=== PATIENT | female | born 1950 | race Caucasian/White ===

== ENCOUNTER 2018-02-06 13:19 | Emergency (ER) | payer MEDICARE, MEDICAID, SELFPAY ==
[2018-02-06 13:39] VITALS: BP 126/71; PULSE 75; RESP 16; TEMP 37.3; O2SAT 95; BMI 25.6
--- NOTE | 2018-02-06 15:42 | NURSING ---
ASHLI STROUD, EYE DR
--- NOTE | 2018-02-06 16:15 | ED.VISSUMM ---
- ER Visit Summary Date of Service: 02/06/18 Chief Complaint: Left eye lateral visual field cut. History of Present Illness: The patient is a 67 F prior I history. Denies any prior eye surgery. She has never had a stroke. Approximately 3 years ago she had a full workup including CTA and MRI which is basically unremarkable. She states today she had left lateral visual field change for the last several hours. She also states she has nasal congestion. She denies any eye pain. She denies any problems moving her arms or legs. She denies any numbness. Denies any headache or head trauma. She is on no blood thinners. Other than aspirin. Physical Examination: Well-appearing older female. Vital signs are stable afebrile. Her visual acuity is 20/30 bilaterally. 20/30 right eye. 20/40 left eye. She does not wear glasses or contacts. HEENT exam unremarkable. Pupils round reactive light. Extra motions are intact. No palsies. No facial droop. Normal speech. Very limited funduscopic exam due to non-dilated left pupil. Lungs clear to auscultation. Heart regular rate and rhythm no murmur. Abdomen soft nontender. She is moving all 4 extremities. They are neurovascularly intact. She has 5 out of 5 house shorer strength bilaterally. Dorsi plantar flexion intact bilaterally. Normal sensation. Normal range of motion. No deformity. NIH score is 0. On confrontation she does have a left lateral field cut. Test Results: None Emergency Department Course and Treatment: Clinically and historically this is not a stroke. This may or may not be secondary to the retina. She needs a more thorough funduscopic exam and ophthalmology evaluation. I spoke to Dr. Cohn concrete building assembler for ophthalmology will meet the patient at her office for further evaluation. Discussed this with the patient and she is comfortable with the plan will go directly to the office. Treatment Plan: [] Disposition: Discharged to go to the buffing wheel inspector office. Impression: Acute left eye visual field cut of uncertain etiology This note was generated with [employer] dictation software. It may contain incorrect words, spelling, and punctuation that were not noted in review of the chart prior to signing ED Disposition - Plan for ED Patient: Disposition: Home or Assisted Living Chief Complaint: Vision Prob Referrals: Louisa Cohn MD [STAFF PHYSICIAN] - As soon as possible Additional Instructions: Please to Dr. Cohn's office to be seen right now. She will come in me to the office.
--- NOTE | 2018-02-06 16:21 | ED.DCSUM_ITS ---
- ER Visit Summary Date of Service: 02/06/18 Chief Complaint: Left eye lateral visual field cut. History of Present Illness: The patient is a 67 F prior I history. Denies any prior eye surgery. She has never had a stroke. Approximately 3 years ago she had a full workup including CTA and MRI which is basically unremarkable. She states today she had left lateral visual field change for the last several hours. She also states she has nasal congestion. She denies any eye pain. She denies any problems moving her arms or legs. She denies any numbness. Denies any headache or head trauma. She is on no blood thinners. Other than aspirin. Physical Examination: Well-appearing older female. Vital signs are stable afebrile. Her visual acuity is 20/30 bilaterally. 20/30 right eye. 20/40 left eye. She does not wear glasses or contacts. HEENT exam unremarkable. Pupils round reactive light. Extra motions are intact. No palsies. No facial droop. Normal speech. Very limited funduscopic exam due to non-dilated left pupil. Lungs clear to auscultation. Heart regular rate and rhythm no murmur. Abdomen soft nontender. She is moving all 4 extremities. They are neurovascularly intact. She has 5 out of 5 shopping centre manager strength bilaterally. Dorsi plantar flexion intact bilaterally. Normal sensation. Normal range of motion. No deformity. NIH score is 0. On confrontation she does have a left lateral field cut. Test Results: None Emergency Department Course and Treatment: Clinically and historically this is not a stroke. This may or may not be secondary to the retina. She needs a more thorough funduscopic exam and ophthalmology evaluation. I spoke to Dr. Cohn machine operations supervisor for ophthalmology will meet the patient at her office for further evaluation. Discussed this with the patient and she is comfortable with the plan will go directly to the office. Treatment Plan: [] Disposition: Discharged to go to the rotary engraver office. Impression: Acute left eye visual field cut of uncertain etiology This note was generated with [employer] dictation software. It may contain incorrect words, spelling, and punctuation that were not noted in review of the chart prior to signing ED Disposition - Plan for ED Patient: Disposition: Home or Assisted Living Chief Complaint: Vision Prob Referrals: Louisa Cohn MD [STAFF PHYSICIAN] - As soon as possible Additional Instructions: Please to Dr. Cohn's office to be seen right now. She will come in me to the office.
[2018-02-06 16:30] VITALS: BP 189/83; PULSE 55; RESP 16
== END 2018-02-06 16:31 | disposition home or self-care (01) ==
PROVIDERS: Emergency Provider Emergency Medicine; Family Provider Internal Medicine; PCP Internal Medicine
DX: H53.8 Other visual disturbances (principal); Z72.0 Tobacco use; Z79.82 Long term (current) use of aspirin
CPT/HCPCS: 99284

== ENCOUNTER → 2018-02-11 12:39 | Outpatient (CLI) | payer MEDICARE, MEDICAID, SELFPAY ==
[2018-02-11 13:49] LABS: Anion Gap 4 (5-15); BUN 19 mg/dL (7-18); Calcium,Total 8.7 mg/dL (8.5-10.1); Chloride 105 mmol/L (98-107); EST Glomerular Filtration Rate 66 mL/min (>60); Est Glom Filt Rate - Afr Amer 80 mL/min (>60); Glucose 170 mg/dL (74-106); Potassium 3.6 mmol/L (3.5-5.1); Sodium Level 139 mmol/L (136-145); T4 Free Direct 0.99 ng/dL (0.76-1.46)
== END ==
PROVIDERS: Family Provider Internal Medicine; PCP Internal Medicine; Visit Provider Internal Medicine
DX: I10 Essential (primary) hypertension (principal)
CPT/HCPCS: 36415; 80048; 84439; 84443

== ENCOUNTER → 2018-02-13 12:39 | Outpatient (CLI) | payer MEDICARE, MEDICAID, SELFPAY ==
[2018-02-13 14:26] LABS: Hemoglobin A1c 5.6 % (4.2-6.3)
== END ==
PROVIDERS: Family Provider Internal Medicine; PCP Internal Medicine; Visit Provider Internal Medicine
DX: R73.9 Hyperglycemia, unspecified (principal)
CPT/HCPCS: 36415; 83036

== ENCOUNTER → 2018-07-23 08:12 | Outpatient (CLI) | payer MEDICARE, MEDICAID, SELFPAY ==
[2018-07-23 09:32] LABS: AST(SGOT) 15 U/L (15-37); Alanine Aminotransfer ALT/SGPT 20 U/L (13-56); Albumin, Serum 3.5 g/dL (3.2-5.0); Alkaline Phosphatase 77 U/L (45-117); Anion Gap 7 (5-15); BUN 19 mg/dL (7-18); BUN/Creat Ratio 23.6 RATIO (10-20); Calcium,Total 8.8 mg/dL (8.5-10.1); Chloride 107 mmol/L (98-107); Cholesterol 244 mg/dL (200); EST Glomerular Filtration Rate 76 mL/min (>60); Est Glom Filt Rate - Afr Amer 91 mL/min (>60); Globulin 3.5 g/dL (2.2-4.2); Glucose 91 mg/dL (74-106); High Density Lipoprotein 61 mg/dL; Potassium 4.2 mmol/L (3.5-5.1); Sodium Level 144 mmol/L (136-145); Triglycerides 135 mg/dL; Very Low Density Lipoprotein 27 mg/dL (5-40)
== END ==
PROVIDERS: Family Provider Internal Medicine; PCP Internal Medicine; Referring Provider Internal Medicine; Visit Provider Internal Medicine
DX: I10 Essential (primary) hypertension (principal)
CPT/HCPCS: 36415; 80053; 80061

== ENCOUNTER → 2018-07-25 13:02 | Outpatient (CLI) | payer MEDICARE, MEDICAID, SELFPAY ==
--- NOTE | 2018-07-25 13:05 | BD_ITS ---
STUDY: DUAL ENERGY X-RAY ABSORPTIOMETRY / DXA REASON FOR EXAM: Female, 68 years old. Postmenopausal screening TECHNIQUE: Bone Mineral Density (BMD) measurements of lumbar spine and bilateral hips were obtained. COMPARISON: 2002 FINDINGS: Lumbar Spine (L1-L4): g/cm2 (1.448) / T-score (2.4) / Z-score (4.0) Findings are suggestive of normal bone density with a low fracture risk. Left Femur Total: g/cm2 (1.058) / T-score (0.4) / Z-score (1.7) Left Femoral Neck: g/cm2 (1.031) / T-score (-0.1) / Z-score (1.5) Right Femur Total: g/cm2 (1.056) / T-score (0.4) / Z-score (1.7) Right Femoral Neck: g/cm2 (1.085) / T-score (0.3) / Z-score (1.9) The T-Scores on the most recent prior examination were: Lumbar Spine (L1-L4): There has been worsening of bone density since the previous examination. BD/Dexa Bone Density Study IMPRESSION: The patient is considered normal as outlined below according to World Shawn Organization (WHO) criteria with a low fracture risk. There has been worsening of bone density since the previous examination. Reference Information: The T-score is the number of standard deviations above or below the standard which is normal for young adults at their peak bone mineral density. The World Health Organization (WHO) interprets the T-scores as follows: Above -1 Normal bone density Between -1 and -2.5 Osteopenia Equal to / or below -2.5 Osteoporosis As a practical clinical guideline, osteopenia may be graded as follows: Mild -1 through -1.5 Moderate -1.6 through -2.0 Severe -2.1 through -2.4 The Z-score is the number of standard deviations above or below age-matched controls. A Z-score of less than -1.5 would be considered abnormal. References: 1. NIH Osteoporosis and Related Bone Diseases http://www.osteo.org 2. International Society for Clinical Densitometry http://www.iscd.org 3. National Osteoporosis Foundation http://www.nof.org Electronically Signed: Zion Rodrigues MD at 10:23 EDT , Service support ,
== END ==
PROVIDERS: Family Provider Internal Medicine; PCP Internal Medicine; Visit Provider Internal Medicine
DX: Z78.0 Asymptomatic menopausal state (principal)
CPT/HCPCS: 77080

== ENCOUNTER → 2018-07-26 13:27 | Outpatient (CLI) | payer MEDICARE, MEDICAID, SELFPAY ==
--- NOTE | 2018-07-26 13:29 | CT_ITS ---
STUDY: LOW DOSE CT LUNG CANCER SCREENING REASON FOR EXAM: Female, 68 years old. RADIATION DOSAGE (If Supplied By Facility): CTDIvol = ( 1.70 ) mGy, DLP = ( 58.07 ) mGycm TECHNIQUE: No contrast was administered. Low dose technique was utilized (average mAS-38 and kVp 120). 1.25 mm axial source images with a slice interval of 1.25-mm were reconstructed in lung windows. 2.5 mm axial source images with a slice interval of 2.5-mm were reconstructed in lung windows. 5.0 mm axial source images with a slice interval of 5.0-mm were reconstructed in soft tissue windows. Nodule measured using lung windows on PACS and/or independent workstation with automated measurement of minimum and maximum diameter. Nodule measurement reported as average diameter rounded to the nearest whole number. Growth is defined as an increase ins size of greater than 1.5 mm. COMPARISON: None. NODULES: Lung windows show no suspicious noncalcified mass or nodule. No organized infiltrate. Soft tissue windows show normal-appearing thyroid gland. No suspicious axillary or mediastinal adenopathy. No pleural or pericardial effusions. Other chest and abdominal findings: Mild degenerative bony changes CT/Low Dose CT Lung Screening IMPRESSION: Lung-RADS category 1 - Continue annual screening with LDCT in 12 months. IMPORTANT NOTES FOR USE: ACR Lung-RADS Version 1.0 Assessment Categories Release Date: February 16, 2014 Category: Coded 0-4 bases on nodule(s) with highest degree of suspicion. Negative screen is defined as categories 1 and 2; a positive screen is defined as categories 3 and 4. Category 3 and 4A nodules that are unchanged on interval CT should be coded as category 2, and individuals returned to screening in 12 months. Category 4X: Category 3 or 4 nodules with additional imaging findings that increase the suspicion of lung cancer, such as spiculation, GGN that doubles in size in 1 year, enlarged lymph notes, etc. Category Modifiers: S (significant finding unrelated to lung cancer) and C (prior history of treated lung cancer) may be added to the 0-4 Lung-RADS Electronically Signed: Zion Rodrigues MD at 16:26 EDT , Service support ,
== END ==
PROVIDERS: Family Provider Internal Medicine; PCP Internal Medicine; Referring Provider Internal Medicine; Visit Provider Internal Medicine
DX: Z87.891 Personal history of nicotine dependence (principal)
CPT/HCPCS: G0297

== ENCOUNTER → 2018-08-16 11:54 | Outpatient (CLI) | payer MEDICARE, MEDICAID, SELFPAY ==
--- NOTE | 2018-08-16 11:56 | BI_ITS ---
MAMMOGRAPHY - BILATERAL SCREENING REASON FOR EXAM: Female, 68 years old. Routine annual screening examination. PERTINENT HISTORY: Non-contributory. TECHNIQUE: Digital bilateral breast gail (3D mammographic acquisition) in the CC and MLO projections. 2-D mediolateral oblique (MLO) and craniocaudad (CC) views of both breasts were obtained. CAD: Full Field Digital Mammography with Computer Added Detection was performed. COMPARISON: Comparison is made with prior study dated May 15, 2017 and November 14, 2012. FINDINGS: Breast Composition: The breasts are heterogeneously dense, which may obscure small masses. There are no dominant masses or suspicious calcifications. A stereotactic tissue clip marker is once again seen in the superior lateral anterior aspect of the left breast. No other significant abnormalities are identified. There has been no significant change since the prior study. BI/SCREENING MAMM (CAD), BILAT IMPRESSION: Stable bilateral screening mammogram. Yearly follow-up mammogram recommended. (A) ASSESSMENT CATEGORY: BIRADS Category 2: Benign. A letter regarding these results will be sent to the patient by the facility within 30 days. Approximately 10% of breast cancers are not detected by mammography. A normal mammogram should not delay biopsy of a clinically suspicious abnormality. [id number] Electronically Signed: Jorge Pollard MD at 12:52 EDT Tel [phone], Service support ,
== END ==
PROVIDERS: Family Provider Internal Medicine; PCP Internal Medicine; Referring Provider Internal Medicine; Visit Provider Internal Medicine
DX: Z12.31 Encounter for screening mammogram for malignant neoplasm of breast (principal)
CPT/HCPCS: 77063; 77067

== ENCOUNTER → 2018-12-18 12:25 | Outpatient (CLI) | payer MEDICARE, MEDICAID, SELFPAY ==
[2018-12-18 09:15] VITALS: BMI 24.6
--- NOTE | 2018-12-18 12:44 | RAD_ITS ---
STUDY: X-RAY - BILATERAL RIBS WITH CHEST REASON FOR EXAM: Female, 68 years old. Anterior and posterior rib pain since bronchitis summer 2017. TECHNIQUE - RIBS: 6 view(s) of the ribs. TECHNIQUE - CHEST: Single frontal view of the chest. COMPARISON: None. FINDINGS - RIBS : Normal visualized ribs without a demonstrated fracture. FINDINGS - CHEST: The lungs are clear and expanded. There is no demonstrated pleural abnormality. Normal size heart. Normal mediastinum and angelo. Normal visualized pulmonary arteries. There is minimal atherosclerotic calcification of the aortic arch. There are diffuse degenerative changes of the visualized spine. There is a 26 degree dextroscoliosis centered at T11 and a 27.75 degree levorotoscoliosis of the lumbar spine centered near L2. Subarticular cystic degenerative changes noted in the glenoid of the left scapula. There is no demonstrated abnormality of the visualized soft tissue structures of the upper abdomen. RAD/Ribs Grant Min 4V w/PA Chest IMPRESSION: RIBS: Normal x-ray examination of the bilateral ribs. CHEST: 1. No acute cardiopulmonary disease. 2. Levorotoscoliosis of the lumbar spine with compensatory lower thoracic dextroscoliosis, as noted. Electronically Signed: Zion Richardson, at 19:59 EST , Service support ,
== END ==
PROVIDERS: Family Provider Internal Medicine; PCP Internal Medicine; Referring Provider Nurse Practitioner Family; Visit Provider Nurse Practitioner Family
DX: R07.81 Pleurodynia (principal)
CPT/HCPCS: 71111

== ENCOUNTER → 2019-01-21 09:41 | Outpatient (CLI) | payer MEDICARE, MEDICAID, SELFPAY ==
[2019-01-15 13:42] VITALS: BMI 24.6
[2019-01-21 11:28] LABS: Thyroid Stim Hormone (TSH) 1.45 uIU/mL (0.358-3.74)
== END ==
PROVIDERS: Family Provider Internal Medicine; PCP Internal Medicine; Referring Provider Internal Medicine; Visit Provider Internal Medicine
DX: I10 Essential (primary) hypertension (principal)
CPT/HCPCS: 36415; 84443

== ENCOUNTER → 2019-03-03 08:11 | Outpatient (CLI) | payer MEDICARE, MEDICAID, SELFPAY ==
[2019-02-17 14:34] VITALS: BMI 24.6
--- NOTE | 2019-03-03 08:13 | CT_ITS ---
STUDY: CT MAXILLOFACIAL SINUSES REASON FOR EXAM: Female, 69 years old. History of congestion. RADIATION DOSAGE (If Supplied By Facility): CTDIvol = ( 33.06 ) mGy, DLP = ( 722.28 ) mGycm TECHNIQUE: The patient was scanned in a multi detector CT scanner. High resolution axial imaging was performed without the administration of intravenous contrast material. Sagittal and coronal images were reconstructed. Individualized dose optimization techniques were used for this CT. COMPARISON: None. FINDINGS: FRONTAL SINUSES: Normal aeration, without mucosal inflammatory disease. ETHMOIDAL SINUSES: Normal aeration, without mucosal inflammatory disease. MAXILLARY SINUSES: Normal aeration, without mucosal inflammatory disease. SPHENOIDAL SINUSES: Normal aeration, without mucosal inflammatory disease. There is patency of the bilateral maxillary infundibuli with normal uncinate processes, ethmoid bullae, and hiatus semilunaris. Normal bilateral middle turbinates. Normal bilateral inferior turbinates. Normal midline nasal septum. There is patency of the bilateral nasal airways. The visualized osseous structures are normal. The visualized bilateral orbital contents are normal. Cavity seen in the left incisor tooth. CT/Sinus/Facial Bone IMPRESSION: Normal CT examination of the maxillofacial sinuses. Electronically Signed: Jorge Pollard, at 15:14 EDT , Service support ,
== END ==
PROVIDERS: Family Provider Internal Medicine; PCP Internal Medicine; Referring Provider Internal Medicine; Visit Provider Internal Medicine
DX: J32.9 Chronic sinusitis, unspecified (principal)
CPT/HCPCS: 70486

== ENCOUNTER → 2019-04-10 | Outpatient (CLI) | payer MEDICARE, MEDICAID, SELFPAY ==
[2019-02-17 14:34] VITALS: BMI 24.6
--- NOTE | 2019-04-10 15:45 | MRI_ITS ---
STUDY: MRI LUMBAR SPINE WITHOUT CONTRAST REASON FOR EXAM: Female, 69 years old. Lower back pain TECHNIQUE: Standardized fat and water weighted pulse sequences were obtained in the sagittal and axial planes. COMPARISON: None FINDINGS: T12-L1: Normal endplates. Normal disc height, hydration and morphology. Normal bilateral facet joints. Normal central canal and bilateral lateral recesses. Normal bilateral intervertebral neural foramina. Normal lumbar lordosis. There is no substantial scoliosis. Normal conus medullaris that terminates at the L1 level. L1-2: Endplate spondylosis. Decreased disc height and small circumferential disc bulge. 5 mm retrolisthesis. Degenerative changes of the bilateral facet joints. Mild narrowing of the central canal and bilateral intervertebral neural foramina. L2-3: Endplate spondylosis. Decreased disc height and small circumferential disc bulge. 5 mm retrolisthesis. Degenerative changes of the bilateral facet joints. Mild narrowing of the central canal. Mild left and severe right intervertebral neural foraminal narrowing. L3-4: Endplate spondylosis. Decreased disc height and small circumferential disc bulge. Degenerative changes of the bilateral facet joints. Mild narrowing of the central canal and bilateral intervertebral neural foramina. L4-5: Endplate spondylosis. Decreased disc height and small circumferential disc bulge. Degenerative changes of the bilateral facet joints. 6 mm synovial cyst on the right side. Moderate narrowing of the central canal moderate right and severe left intervertebral neural foraminal narrowing. L5-S1: Endplate spondylosis. Decreased disc height and small circumferential disc bulge. Degenerative changes of the bilateral facet joints. Mild narrowing of the central canal. Moderate right and severe left intervertebral neural foraminal narrowing. Normal visualized sacral ala. Normal visualized paraspinous soft tissue structures. MRI/Spine Lumbar (Routine) IMPRESSION: Multilevel degenerative changes, as described above. Electronically Signed: Joanne Aparicio, at 8:02 EDT Tel , Service support ,
== END | disposition home or self-care (01) ==
LOC: MRI 15:39
PROVIDERS: Family Provider Internal Medicine; PCP Internal Medicine; Referring Provider Specialist; Visit Provider Specialist
DX: M54.5 Low back pain (principal)
CPT/HCPCS: 72148

== ENCOUNTER → 2019-07-15 13:07 | Outpatient (CLI) | payer MEDICARE, MEDICAID, SELFPAY ==
[2019-07-15 13:04] VITALS: BMI 24.6
--- NOTE | 2019-07-15 13:09 | RAD_ITS ---
STUDY: X-RAY - LUMBAR SPINE REASON FOR EXAM: Female, 69 years old. Severe low back pain. TECHNIQUE: 4 view(s) of the lumbar spine were obtained with flexion and extension. COMPARISON: None FINDINGS: Normal lumbar lordosis. There is a levoscoliosis of the lumbar spine. There is a normal alignment of the vertebrae. Very limited range of motion. There is diffuse demineralization with multi-level endplate spondylosis. There is multi-level degenerative disc disease with multi-level disc space narrowing. There is no demonstrated fracture. The soft tissue structures are unremarkable. RAD/L/S Spine Min 4 Views IMPRESSION: Degenerative changes of the spine, as detailed above. Minimal flexion and extension with no gross subluxations. Electronically Signed: Calixto Goncalves MD at 17:08 EDT , Service support ,
== END ==
PROVIDERS: Family Provider Internal Medicine; PCP Internal Medicine; Referring Provider Orthopaedic Surgery; Visit Provider Orthopaedic Surgery
DX: M54.5 Low back pain (principal)
CPT/HCPCS: 72110

== ENCOUNTER → 2019-08-19 15:31 | Outpatient (CLI) | payer MEDICARE, MEDICAID, SELFPAY ==
[2019-07-15 13:04] VITALS: BMI 24.6
[2019-08-18 13:08] VITALS: BMI 27.7
--- NOTE | 2019-08-19 15:32 | BI_ITS ---
MAMMOGRAPHY - BILATERAL SCREENING REASON FOR EXAM: Female, 69 years old. Routine annual screening examination. PERTINENT HISTORY: Non-contributory. Occasional left breast pain. Remote left stereotactic breast biopsy. TECHNIQUE: Digital bilateral breast claudio (3D mammographic acquisition) in the CC and MLO projections. 2-D mediolateral oblique (MLO) and craniocaudad (CC) views of both breasts were obtained. CAD: Full Field Digital Mammography with Computer Added Detection was performed. COMPARISON: Comparison is made with prior examination dated August 16, 2018 and May 15, 2017. FINDINGS: Breast Composition: The breasts are heterogeneously dense, which may obscure small masses. There are no dominant masses or suspicious calcifications. No other significant abnormalities are identified. There has been no significant change since the prior study. BI/SCREEN MAMM (CAD) W/CLAUDIO BILAT IMPRESSION: Stable bilateral screening mammogram. Yearly follow-up mammogram recommended. (A) ASSESSMENT CATEGORY: BIRADS Category 1: Negative. A letter regarding these results will be sent to the patient by the facility within 30 days. Approximately 10% of breast cancers are not detected by mammography. A normal mammogram should not delay biopsy of a clinically suspicious abnormality. [id number] Electronically Signed: Jorge Pollard, at 8:36 EDT , Service support ,
== END ==
PROVIDERS: Family Provider Internal Medicine; PCP Internal Medicine; Referring Provider Internal Medicine; Visit Provider Internal Medicine
DX: Z12.31 Encounter for screening mammogram for malignant neoplasm of breast (principal)
CPT/HCPCS: 77063; 77067

== ENCOUNTER → 2019-08-20 08:02 | Outpatient (CLI) | payer MEDICARE, MEDICAID, SELFPAY ==
[2019-08-18 13:08] VITALS: BMI 27.7
[2019-08-20 08:08] LABS: Bacteria 0 SEEN /hpf (None Seen); Mucous, Urine 0 SEEN /hpf (<or=2+)
[2019-08-20 08:26] LABS: Absolute Lymphocyte Count 2.21 X10^3/uL (0.83-4.51); Absolute Neutrophil Count 3.1 X10^3/uL (2.0-7.7); Basophil# 0.03 X10^3/uL; Basophil% 0.5 % (0-1); Eosinophil# 0.16 X10^3/uL; Eosinophils% 2.6 % (0-5); Hematocrit 47.9 % (37-47); Hemoglobin 15.2 g/dL (12.0-15.0); Lymphocyte # 2.21 X10^3/ul (4.0); Lymphocyte % 36.3 % (19-41); Mean Corp Hgb Conc 31.7 g/dL (32-36); Mean Corpuscular Volume 94.5 fL (81-99); Mean Platelet Vol. 11.2 fl (6.2-12.0); Monocyte# 0.52 X10^3/uL; Monocyte% 8.6 % (0-10); NRBC Flagged by Analyzer 0 % (0-5); Neutrophil # 3.14 X10^3/uL (2.7-7.7); Neutrophil % 51.7 % (47-70); Platelet Count 213 K/mm3 (150-450); RBC Distribution Width CV 12.7 % (11.6-14.6); Red Blood Count 5.07 M/mm3 (4.2-5.4); White Blood Count 6.1 K/mm3 (4.4-11.0)
[2019-08-20 09:01] LABS: AST(SGOT) 16 U/L (15-37); Alanine Aminotransfer ALT/SGPT 18 U/L (13-56); Albumin, Serum 3.7 g/dL (3.2-5.0); Alkaline Phosphatase 89 U/L (45-117); Anion Gap 5 (5-15); BUN 12 mg/dL (7-18); BUN/Creat Ratio 14.9 RATIO (10-20); Calcium,Total 8.7 mg/dL (8.5-10.1); Chloride 105 mmol/L (98-107); Cholesterol 273 mg/dL (200); Creatinine, Serum 0.81 mg/dL (0.55-1.02); EST Glomerular Filtration Rate 75 mL/min (>60); Est Glom Filt Rate - Afr Amer 91 mL/min (>60); Globulin 3.6 g/dL (2.2-4.2); Glucose 102 mg/dL (74-106); High Density Lipoprotein 72 mg/dL; Potassium 4.3 mmol/L (3.5-5.1); Protein, Total 7.3 g/dL (6.4-8.2); Sodium Level 141 mmol/L (136-145); Triglycerides 195 mg/dL; Very Low Density Lipoprotein 39 mg/dL (5-40)
[2019-08-20 09:07] LABS: Color, Urine Yellow (Yellow); Glucose, Dipstick Normal (Normal); Ketone-Dipstick Negative (Negative); Nitrite-Dipstick Negative (Negative); Urine Bilirubin Dipstick Negative (Negative); Urine Clarity Sl. Cloudy (Clear); Urine Urobilinogen Normal (Normal)
[2019-08-20 09:25] LABS: Leukocyte Esterase-Dipstick 500 /ul (Negative); Occult Blood-Urine 25 /ul (Negative); Protein-Dipstick 15 mg/dl (Negative)
[2019-08-20 09:35] LABS: Red Blood Cells-Urine 0-5 SEEN /hpf (0-5); Squamous Epithelial Cells - UA 0-5 SEEN /hpf (5-10); White Blood Cells 25-50 SEEN /hpf (0-5)
== END ==
PROVIDERS: Family Provider Internal Medicine; PCP Internal Medicine; Referring Provider Internal Medicine; Visit Provider Internal Medicine
DX: I10 Essential (primary) hypertension (principal)
CPT/HCPCS: 36415; 80053; 80061; 81001; 85025

== ENCOUNTER → 2019-11-26 11:07 | Outpatient (CLI) | payer MEDICARE, MEDICAID, SELFPAY ==
[2019-11-17 13:10] VITALS: BMI 27.7
[2019-11-26 11:38] LABS: Absolute Neutrophil Count 3.4 X10^3/uL (2.0-7.7); Basophil# 0.02 X10^3/uL; Basophil% 0.3 % (0-1); Eosinophil# 0.09 X10^3/uL; Eosinophils% 1.5 % (0-5); Hematocrit 45.2 % (37-47); Hemoglobin 14.4 g/dL (12.0-15.0); Lymphocyte % 32.2 % (19-41); Mean Corp Hgb Conc 31.9 g/dL (32-36); Mean Corpuscular Hgb 29.9 pg (27.0-32.0); Mean Platelet Vol. 11.2 fl (6.2-12.0); Monocyte# 0.46 X10^3/uL; Monocyte% 7.8 % (0-10); NRBC Flagged by Analyzer 0 % (0-5); Neutrophil # 3.41 X10^3/uL (2.7-7.7); Neutrophil % 57.9 % (47-70); Platelet Count 218 K/mm3 (150-450); RBC Distribution Width CV 12.8 % (11.6-14.6); RBC Distribution Width SD 44.3 fl (35.1-43.9); Red Blood Count 4.81 M/mm3 (4.2-5.4); White Blood Count 5.9 K/mm3 (4.4-11.0)
== END ==
PROVIDERS: PCP Internal Medicine; Referring Provider Internal Medicine; Visit Provider Internal Medicine
DX: K62.3 Rectal prolapse (principal)
CPT/HCPCS: 36415; 85025

== ENCOUNTER → 2019-12-09 14:16 | Outpatient (CLI) | payer MEDICARE, MEDICAID, SELFPAY ==
[2019-11-17 13:10] VITALS: BMI 27.7
[2019-12-09 13:46] VITALS: BMI 24.3
--- NOTE | 2019-12-09 14:17 | CT_ITS ---
STUDY: LOW DOSE CT LUNG CANCER SCREENING REASON FOR EXAM: Female, 69 years old. LUNG CANCER SCREENING -- 1PPD X40 YEARS -- +HTN-RX CONTROLLED RADIATION DOSAGE (If Supplied By Facility): CTDIvol = ( 1.7 ) mGy, DLP = ( 54.88 ) mGycm TECHNIQUE: No contrast was administered. Low dose technique was utilized (average mAS-38 and kVp 120). 1.25 mm axial source images with a slice interval of 1.25-mm were reconstructed in lung windows. 2.5 mm axial source images with a slice interval of 2.5-mm were reconstructed in lung windows. 5.0 mm axial source images with a slice interval of 5.0-mm were reconstructed in soft tissue windows. Nodule measured using lung windows on PACS and/or independent workstation with automated measurement of minimum and maximum diameter. Nodule measurement reported as average diameter rounded to the nearest whole number. Growth is defined as an increase ins size of greater than 1.5 mm. COMPARISON: Comparison is made with prior examination dated July 26, 2018. NODULES: Minimal increased linear markings at the lung bases suggestive of mild scarring. Emphysema: Hyperinflation. Aorta: Atherosclerotic plaque formation. Coronary arteries: Coronary artery calcification. Other chest and abdominal findings: Degenerative changes of the thoracic spine. CT/Low Dose CT Lung Screening IMPRESSION: Lung-RADS category 2 - Continue annual screening with LDCT in 12 months. IMPORTANT NOTES FOR USE: ACR Lung-RADS Version 1.0 Assessment Categories Release Date: February 16, 2014 Category: Coded 0-4 bases on nodule(s) with highest degree of suspicion. Negative screen is defined as categories 1 and 2; a positive screen is defined as categories 3 and 4. Category 3 and 4A nodules that are unchanged on interval CT should be coded as category 2, and individuals returned to screening in 12 months. Category 4X: Category 3 or 4 nodules with additional imaging findings that increase the suspicion of lung cancer, such as spiculation, GGN that doubles in size in 1 year, enlarged lymph notes, etc. Category Modifiers: S (significant finding unrelated to lung cancer) and C (prior history of treated lung cancer) may be added to the 0-4 Lung-RADS Electronically Signed: Jorge Pollard, at 15:23 EST , Service support ,
== END ==
PROVIDERS: PCP Internal Medicine; Referring Provider Nurse Practitioner Family; Visit Provider Nurse Practitioner Family
DX: Z12.2 Encounter for screening for malignant neoplasm of respiratory organs (principal); Z87.891 Personal history of nicotine dependence
CPT/HCPCS: G0297

== ENCOUNTER 2020-03-17 08:39 | Day surgery (SDC) | payer MEDICARE, MEDICAID, SELFPAY ==
[2020-03-11 14:21] VITALS: BMI 25.4
--- NOTE | 2020-03-12 09:20 | HP_ITS ---
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 Is patient in pain?: No Allergies simvastatin [From Zocor] Allergy (Verified 12/09/19 13:44) Pain in joints NSAIDS (Non-Steroidal Anti-Inflamma Adverse Reaction (Verified 12/09/19 13:44) Upset Stomach Medications multivitamin 1 cap PO QAM 02/11/18 [History Confirmed 03/11/20] fluticasone propionate 50 mcg/actuation nasal spray,suspension 2 spray INTRANASAL DAILY PRN g 05/19/19 [History Confirmed 03/11/20] aspirin 81 mg tablet,delayed release 81 mg PO QDAY 12/09/19 [History Confirmed 03/11/20] albuterol sulfate 90 mcg/actuation aerosol inhaler 2 puff INHALATION Q4H PRN PRN #8.5 g 12/29/19 [Rx Confirmed 03/11/20] amlodipine 10 mg tablet 10 mg PO QDAY #90 tab 12/29/19 [Rx Confirmed 03/11/20] Is last menstrual period known: No Post menopausal: Yes Patient : No PFSH Medical History High blood pressure (Chronic) Actinic keratosis of left confucianism (Acute) Chronic back pain (Chronic) GERD (gastroesophageal reflux disease) (Chronic) COPD (chronic obstructive pulmonary disease) (Chronic) Asthma (Chronic) Osteoarthritis (Chronic) Seasonal allergies (Chronic) History of fall (Acute) Surgical History History of carpal tunnel release (Acute) History of colonoscopy (Acute ~09/2017) History of hysterectomy (Acute) History of knee replacement (Acute) History of tonsillectomy (Acute) Family History Mother CHF (congestive heart failure) Diabetes Sister , age 70 Diabetes Sister CHF (congestive heart failure) Social History (Updated 03/12/20 @ 09:[address] Mykel Main MD) Smoking Status: Current every day smoker tobacco type: cigarettes Tobacco: How many years used: 40 Electronic Cigarette Use: not used second hand exposure: No counseling given: provider counseling alcohol intake: current substance use type: does not use what type of physical activity do you participate in: none HPI HPI Surgical H&P: Yes HPI: MAL STEVENSON, is a 70 F who presents to the office today for Evaluation for colonoscopy. Patient is going to be having a cystocele repair and her surgeon wanted her to have a colonoscopy prior to this procedure being done. She has had a previous colonoscopy in 2017 no polyps are identified. She had a EGD performed which showed some esophageal polyps. She notices increasing bleeding off and on for the last 3 months. Believes it is coming from her rectum. She also notices positive prolapse. Exam Const General: no acute distress, well developed, well hydrated Orientation: oriented to person, oriented to place, oriented to time HENGA Head: normocephalic, atraumatic Ears: external ears normal Mouth: moist mucous membranes Eyes Sclera: sclerae normal Pupils: normal by confrontation Neck Neck: no lymphadenopathy noted Neck mass: No Thyroid: thyroid normal, symmetrical Chest Chest palpation & inspection: normal inspection of the chest Resp Effort & Inspection: normal respiratory effort Auscultation: clear to auscultation bilaterally Percussion: percussion normal Cardio Rate: regular rate Rhythm: regular rhythm GI Palpation: soft, no hepatosplenomegaly, no masses, nontender Rectal Exam: other Other: Rectal exam deferred. No rectal prolapse was identified with Valsalva maneuver Extrem General: normal to inspection, no clubbing, cyanosis or edema Assessment & Plan Problems 1. Rectal hemorrhage K62.5 2. Esophageal polyp K22.8 Plan I have discussed the above with the patient. I have offered the patient colonoscopy As well as an EGD for evaluation. I have explained the risks/benefits of the procedure and described the procedure. I have discussed the risks with the patient, including but not limited to: infection, bleeding, perforation of the GI tract requiring emergency surgery, inability to complete the procedure, injury to any internal organs, complications of anesthesia, etc. - the patient understands and agrees to proceed. I have answered all the patient's questions to the patient's satisfaction and the patient has no further questions. The patient has been given instructions for the colon cleansing preparation. Orders Orders: Colonoscopy 03/11/20 Coding Level of Care Code Off vis,new,level 3 Diagnoses Rectal hemorrhage K62.5 Esophageal polyp K22.8 03/12/20 0920 <Electronically signed by Mykel arshad MD> Date _ Mykel Main MD I have re-examined the patient. There are no clinical changes since date of exam.
[2020-03-17 09:05] VITALS: BP 143/73; PULSE 73; RESP 16; TEMP 37.1; O2SAT 95; BMI 23.9
[2020-03-17] MEDS: Lactated Ringers 1,000 ML 100 ML IV (09:23)
[2020-03-17 10:50] VITALS: BP 109/60; BP 143/73; PULSE 76; RESP 17; TEMP 36.3; O2SAT 96
--- NOTE | 2020-03-17 10:51 | OP.CCLET_ITS ---
03/17/2020 Bernard Grider MD [address] [place] [address] [place] [address] Re : Upper GI endoscopy procedure for Inna Vidal Dear Dr. Grider This procedure was performed on Tuesday, March 17, 2020. My impressions and recommendations are as follows: Impressions : - Normal esophagus. - Normal stomach. No specimens collected. - Normal examined duodenum. No specimens collected. Recommendations : - Discharge patient to home. - Resume previous diet. - Continue present medications. - Repeat upper endoscopy in 5 years for surveillance. - Return to primary care physician (date not yet determined). My findings are described in the full procedure note, which is enclosed. If I can be of further assistance, please feel free to contact me at Doctor phone number(s): , Fax: [phone], Work: . Sincerely, MD Mykel Barth MD 03/17/2020 10:51:10 AM This report has been signed electronically.
--- NOTE | 2020-03-17 10:51 | OP.EGD_ITS ---
Patient Name: Inna Vidal Procedure Date: 03/17/2020 10:14 AM Date of : 1950 Age: 70 Procedure: Upper GI endoscopy Indications: Esophageal squamous dysplasia Providers: Mykel Main MD Referring MD: Mykel Main MD Medicines: See the Anesthesia note for documentation of the administered medications Patient Profile: This is a 70 year old female. Refer to note in patient chart for documentation of history and physical. Complications: No immediate complications. Procedure: Pre-Anesthesia Assessment: - Prior to the procedure, a History and Physical was performed, and patient medications and allergies were reviewed. The patient's tolerance of previous anesthesia was also reviewed. The risks and benefits of the procedure and the sedation options and risks were discussed with the patient. All questions were answered, and informed consent was obtained. Prior Anticoagulants: The patient has taken aspirin, last dose was 7 days prior to procedure. ASA Grade Assessment: III - A patient with severe systemic disease. After reviewing the risks and benefits, the patient was deemed in satisfactory condition to undergo the procedure. After obtaining informed consent, the endoscope was passed under direct vision. Throughout the procedure, the patient's blood pressure, pulse, and oxygen saturations were monitored continuously. The gastroscope was introduced through the mouth, and advanced to the second part of duodenum. The upper GI endoscopy was accomplished without difficulty. The patient tolerated the procedure well. Scope In: 10:20:23 AM Scope Out: 10:22:27 AM Total Procedure Duration Time 0 hours 2 minutes 4 seconds Findings: The examined esophagus was normal. The entire examined stomach was normal. No biopsies or other specimens were collected for this exam. The examined duodenum was normal. No biopsies or other specimens were collected for this exam. A small hiatal hernia was present. Impression: - Normal esophagus. - Normal stomach. No specimens collected. - Normal examined duodenum. No specimens collected. Recommendation: - Discharge patient to home. - Resume previous diet. - Continue present medications. - Repeat upper endoscopy in 5 years for surveillance. - Return to primary care physician (date not yet determined). Procedure Code(s): --- Professional --- 33709, Esophagogastroduodenoscopy, flexible, transoral; diagnostic, including collection of specimen(s) by brushing or washing, when performed (separate procedure) Diagnosis Code(s): --- Professional --- K22.8, Other specified diseases of esophagus CPT copyright 2017 [employer]. All rights reserved. The codes documented in this report are preliminary and upon interdisciplinary professor review may be revised to meet current compliance requirements. MD Mykel Barth MD 03/17/2020 10:51:10 AM This report has been signed electronically. Number of Addenda: 0 Note Initiated On: 03/17/2020 10:14 AM
--- NOTE | 2020-03-17 10:53 | OP.CCLET_ITS ---
03/17/2020 Bernard Grider MD [address] [place] [address] [place] [address] Re : Colonoscopy procedure for Inna Vidal Dear Dr. Grider This procedure was performed on Tuesday, March 17, 2020. My impressions and recommendations are as follows: Impressions : - Diverticulosis in the sigmoid colon, in the descending colon and in the ascending colon. No specimens collected. - Non-bleeding internal hemorrhoids. - The examination was otherwise normal. Recommendations : - Discharge patient to home. - Resume previous diet. - Continue present medications. - Repeat colonoscopy in 10 years for screening purposes. - Return to primary care physician (date not yet determined). My findings are described in the full procedure note, which is enclosed. If I can be of further assistance, please feel free to contact me at Doctor phone number(s): , Fax: [phone], Work: . Sincerely, MD Mykel Barth MD 03/17/2020 10:53:25 AM This report has been signed electronically.
--- NOTE | 2020-03-17 10:53 | OP.COLON_ITS ---
Patient Name: Inna Vidal Procedure Date: 03/17/2020 10:27 AM Date of : 1950 Age: 70 Procedure: Colonoscopy Indications: Rectal bleeding Providers: Mykel Main MD Referring MD: Mykel Main MD Medicines: See the Anesthesia note for documentation of the administered medications Patient Profile: This is a 70 year old female. Refer to note in patient chart for documentation of history and physical. Last Colonoscopy: 2016. Complications: No immediate complications. Procedure: Pre-Anesthesia Assessment: - Prior to the procedure, a History and Physical was performed, and patient medications and allergies were reviewed. The patient's tolerance of previous anesthesia was also reviewed. The risks and benefits of the procedure and the sedation options and risks were discussed with the patient. All questions were answered, and informed consent was obtained. Prior Anticoagulants: The patient has taken aspirin, last dose was 7 days prior to procedure. ASA Grade Assessment: III - A patient with severe systemic disease. After reviewing the risks and benefits, the patient was deemed in satisfactory condition to undergo the procedure. After I obtained informed consent, the scope was passed under direct vision. Throughout the procedure, the patient's blood pressure, pulse, and oxygen saturations were monitored continuously. The adult colonoscope was introduced through the anus and advanced to the cecum, identified by appendiceal orifice and ileocecal valve. The colonoscopy was performed without difficulty. The patient tolerated the procedure well. The quality of the bowel preparation was good. Scope In: 10:30:35 AM Scope Withdrawal Time 0 hours 6 minutes 50 seconds Scope Out: 10:44:19 AM Total Procedure Duration Time 0 hours 13 minutes 44 seconds Findings: Multiple small and large-mouthed diverticula were found in the sigmoid colon, descending colon and ascending colon. No biopsies or other specimens were collected for this exam. Non-bleeding internal hemorrhoids were found during retroflexion. The hemorrhoids were mild and small. The exam was otherwise without abnormality. Impression: - Diverticulosis in the sigmoid colon, in the descending colon and in the ascending colon. No specimens collected. - Non-bleeding internal hemorrhoids. - The examination was otherwise normal. Recommendation: - Discharge patient to home. - Resume previous diet. - Continue present medications. - Repeat colonoscopy in 10 years for screening purposes. - Return to primary care physician (date not yet determined). Procedure Code(s): --- Professional --- 39471, Colonoscopy, flexible; diagnostic, including collection of specimen(s) by brushing or washing, when performed (separate procedure) Diagnosis Code(s): --- Professional --- K64.8, Other hemorrhoids K62.5, Hemorrhage of anus and rectum K57.30, Diverticulosis of large intestine without perforation or abscess without bleeding CPT copyright 2017 [employer]. All rights reserved. The codes documented in this report are preliminary and upon certified professional coder review may be revised to meet current compliance requirements. MD Mykel Barth MD 03/17/2020 10:53:25 AM This report has been signed electronically. Number of Addenda: 0 Note Initiated On: 03/17/2020 10:27 AM
[2020-03-17 10:55] VITALS: BP 128/72; BP 143/73; PULSE 78; RESP 16; O2SAT 94
[2020-03-17 11:00] VITALS: BP 138/69; BP 143/73; PULSE 73; RESP 16; O2SAT 95
[2020-03-17 11:10] VITALS: BP 143/73; BP 149/75; PULSE 69; RESP 16; TEMP 36.8; O2SAT 95
[2020-03-17 11:50] VITALS: BP 143/73
== END 2020-03-17 11:50 | disposition home or self-care (01) ==
LOC: EN 08:41 → AC 08:41
PROVIDERS: PCP Internal Medicine; Referring Provider Surgery; Visit Provider Surgery
PROC: 0DJD8ZZ Inspection of Lower Intestinal Tract, Via Natural or Artificial Opening Endoscopic (ICD-10-PCS; CPT 45378; principal; 2020-03-17 09:40)
DX: K22.8 Other specified diseases of esophagus (principal); K44.9 Diaphragmatic hernia without obstruction or gangrene; K64.8 Other hemorrhoids; K62.5 Hemorrhage of anus and rectum; K57.30 Diverticulosis of large intestine without perforation or abscess without bleeding; I10 Essential (primary) hypertension; J44.9 Chronic obstructive pulmonary disease, unspecified; M19.90 Unspecified osteoarthritis, unspecified site; F17.210 Nicotine dependence, cigarettes, uncomplicated; Z79.82 Long term (current) use of aspirin; Z11.59 Encounter for screening for other viral diseases
CPT/HCPCS: 43235; 45378; 87635; G2023; J7120; J2405; U0004

== ENCOUNTER 2020-06-15 09:28 | Observation (INO) | payer MEDICARE, MEDICAID, SELFPAY ==
[2020-04-13 09:38] VITALS: BMI 23.9
--- NOTE | 2020-06-09 11:07 | RAD_ITS ---
STUDY: X-RAY CHEST REASON FOR EXAM: Female, 70 years old. SHORT OF BREATH TECHNIQUE: Frontal and lateral views of the chest. COMPARISON: None. FINDINGS: The lungs are clear and expanded. There is no demonstrated pleural abnormality. Normal size heart. Normal mediastinum and angelo. Normal visualized pulmonary arteries. Normal visualized aortic arch and descending thoracic aorta. There is a dextroscoliosis of the thoracic spine. There is degenerative osteoarthritis of the bilateral shoulders. There is no demonstrated abnormality of the visualized soft tissue structures of the upper abdomen. RAD/Chest PA and Lateral IMPRESSION: Degenerative changes, as described above. No demonstrated acute cardiopulmonary process. Electronically Signed: Joanne Aparicio, at 15:37 EDT Tel , Service support ,
--- NOTE | 2020-06-09 11:08 | EKG12_ITS ---
Test Reason : PRE-OP Blood Pressure : / mmHG Vent. Rate : 074 BPM Atrial Rate : 074 BPM P-R Int : 142 ms QRS Dur : 090 ms QT Int : 380 ms P-R-T Axes : 079 089 072 degrees QTc Int : 421 ms Normal sinus rhythm with PVC's Normal ECG Confirmed by PJ BARAHONA ([id number]), online editor MISTY SQUIRES ([id number]) on 06/14/2020 9:44:17 AM Referred By: Gwen Roman Confirmed By:PJ BARAHONA
[2020-06-09 11:28] LABS: Absolute Lymphocyte Count 2.04 X10^3/uL (0.83-4.51); Absolute Neutrophil Count 5.5 X10^3/uL (2.0-7.7); Basophil# 0.03 X10^3/uL; Basophil% 0.4 % (0-1); Eosinophil# 0.07 X10^3/uL; Eosinophils% 0.9 % (0-5); Hematocrit 46.5 % (37-47); Hemoglobin 14.7 g/dL (12.0-15.0); Lymphocyte # 2.04 X10^3/ul (4.0); Mean Corp Hgb Conc 31.6 g/dL (32-36); Mean Corpuscular Hgb 29.9 pg (27.0-32.0); Mean Corpuscular Volume 94.5 fL (81-99); Monocyte% 6.1 % (0-10); NRBC Flagged by Analyzer 0 % (0-5); Neutrophil # 5.49 X10^3/uL (2.7-7.7); Neutrophil % 67.4 % (47-70); Platelet Count 293 K/mm3 (150-450); RBC Distribution Width CV 12.7 % (11.6-14.6); RBC Distribution Width SD 43.5 fl (35.1-43.9); Red Blood Count 4.92 M/mm3 (4.2-5.4); White Blood Count 8.2 K/mm3 (4.4-11.0)
[2020-06-09 11:52] LABS: Anion Gap 4 (5-15); BUN 10 mg/dL (7-18); BUN/Creat Ratio 11.9 RATIO (10-20); Calcium,Total 8.7 mg/dL (8.5-10.1); Chloride 107 mmol/L (98-107); Creatinine, Serum 0.84 mg/dL (0.55-1.02); EST Glomerular Filtration Rate 71 mL/min (>60); Est Glom Filt Rate - Afr Amer 86 mL/min (>60); Glucose 172 mg/dL (74-106); Potassium 3.8 mmol/L (3.5-5.1); Sodium Level 140 mmol/L (136-145)
[2020-06-15] VITALS (12 sets, daily range): BP systolic 121–163; BP diastolic 49–77; PULSE 46–74; RESP 16–18; TEMP 36.4–37.2; O2SAT 92–100; BMI 22.6
--- NOTE | 2020-06-15 09:18 | PCM.OPRPT ---
Problem List (1) Rectocele Status: Chronic Report of Operation Date of Procedure: 06/15/20 Pre-Operative Diagnosis: rectocele Post-Operative Diagnosis: same Surgery/Procedure Performed:: Rectocele repair, cystoscopy Type of Anesthesia:: General Specimen's removed: none Estimated Blood Loss (mL): 10cc Description of Procedure: Patient is a 70-year-old female came to the office with findings consistent with pelvic organ prolapse. She was examined and underwent urodynamics and office cystoscopy. After discussing the risk benefits and alternatives including COVID-19, informed consent was obtained for surgical intervention. Patient was taken to the operating room and placed on the operating room table. Anesthesia monitored the head, neck, airway, IV access and vital signs throughout the case. Once anesthesia was appropriately administered the patient was placed into dorsal lithotomy in Trendelenburg position. She was prepped and draped in usual sterile fashion. A Ramirez catheter was inserted and the bladder was drained. The posterior defect was identified in the apical half of the posterior wall. This area was infiltrated with lidocaine in the submucosal area. A midline incision was made and sharp dissection followed by blunt dissection was performed until the rectum was dissected away from the defect. The rectovaginal fascia was identified and brought together in a 2 layer closure with interrupted 2-0 Vicryl. The vaginal mucosa that was stretched was minimally trimmed bilaterally. The incision was then brought together in running interlocking fashion with 2-0 Vicryl. A cystourethroscopy was performed through the urethra under direct visualization. Bilateral ureteral orifices were identified. There were no injuries to the urinary bladder, no mass, no lesion, no erythema identified. Each ureter was intubated with a 5 Lithuanian whistle-tip catheter and this was inserted to 20 cm bilaterally without difficulty and without blood. At this time the cystoscope was removed and the Ramirez catheter was replaced. The vagina was packed with Premarin cream and vaginal packing. The patient was awakened and taken to the recovery room in good condition. There were no complications during the procedure. Grafts/Implants Used: None - Complications None - Admit VTE Documentation VTE Present on Admission: Yes VTE Mechan Device Prophylaxis: SCD's VTE Pharm Prophylaxis ordered?: Yes
[2020-06-15] MEDS: Lactated Ringers 1,000 ML 100 ML IV ×3 (09:23→19:32)
--- NOTE | 2020-06-15 09:26 | DCINST_ITS ---
Discharge Diet: No Restrictions Discharge Activity: May Not Drive, May Shower Lifting Restrictions: 5 pounds Additional Activity Instructions:: no tub bathing, swimming, hot tubs, no sexual activity, no exercise, no strenuous activity, no vacuuming, no driving for 2 weeks Call your doctor if your incision/area has: Continuous Slow Oozing, Sudden Increased Bleeding, Increased Pain/ Swelling, Increased Redness, Foul Smelling Discharge, Swelling at the incision site Call your doctor if you observe: Inability to urinate, Inability to have a bowel movement, Calf discomfort, Uncontrolled pain Allergies/Adverse Reactions: Allergies simvastatin [From Zocor] Allergy (Verified 06/15/20 09:17) Pain in joints NSAIDS (Non-Steroidal Anti-Inflamma Adverse Reaction (Verified 06/15/20 09:17) Upset Stomach Medications to take at Discharge multivitamin 1 cap PO QAM 02/11/18 fluticasone propionate 50 mcg/actuation nasal spray,suspension 2 spray INTRANASAL DAILY PRN g 05/19/19 albuterol sulfate 90 mcg/actuation aerosol inhaler 2 puff INHALATION Q4H PRN PRN #8.5 g 12/29/19 RX: Amlodipine Besylate [Norvasc] 10 mg PO QDAY 03/16/20 hydrocortisone acetate 25 mg rectal suppository 25 mg RC BID #14 ea 04/13/20 Primary Care Physician: Bernard Grider MD [Primary Care Provider] - Test Results: Test results from this visit will be discussed in further detail at your follow- up appointment, if applicable. Please Follow Up With: Gwen Roman MD When: call office for appt. Proposed Discharge Date: 06/16/20
[2020-06-15] MEDS: Cefazolin 2 GM in 0.9% Normal Saline 100 ML IV (09:28)
[2020-06-15] MEDS: Estrogens,Conj. 1 Tube 0.625 DOSE VAGINAL (10:39)
[2020-06-15] MEDS: HYDROcodone Bitartrate/Apap 5/325 Tablet PO (12:33)
[2020-06-15] MEDS: Morphine 2 MG/ML Syringe IV ×2 (14:59→20:42)
[2020-06-15] MEDS: Cefazolin 1 GM/50 ML BAG IV (17:57)
[2020-06-16 01:35] VITALS: BP 147/61; PULSE 53; RESP 18; TEMP 36.7; O2SAT 95
[2020-06-16 01:40] VITALS: BMI 22.6
[2020-06-16] MEDS: Morphine 2 MG/ML Syringe IV ×2 (01:40→05:46)
[2020-06-16] MEDS: Cefazolin 1 GM/50 ML BAG IV (01:41)
[2020-06-16] MEDS: Enoxaparin 40 MG/0.4 ML Syringe SC (05:33)
[2020-06-16] MEDS: Lactated Ringers 1,000 ML 100 ML IV (05:33)
[2020-06-16 05:34] VITALS: BP 151/70; PULSE 65; RESP 16; TEMP 37.1; O2SAT 95
[2020-06-16 05:40] VITALS: BMI 22.6
[2020-06-16 07:26] VITALS: O2SAT 95
--- NOTE | 2020-06-16 08:14 | PCM.PN.BLA ---
Progress Note Post Op day #1 from rectocele repair Pain controlled, passing gas, tolerating PO intake. No issues overnight. Vital signs good abdomen soft packing was already out mccarty removed without difficulty discharge home today meds sent in for pain and antibiotics follow up in office in 2 weeks STROKE Vital Signs/Narrative: Vital Signs Temp Pulse Resp BP Pulse Ox 06/16/20 07:26 95 06/16/20 05:34 98.8 F 65 16 151/70 H 95
[2020-06-16 09:40] VITALS: BMI 22.6
--- NOTE | 2020-06-16 11:24 | PHA.DC.MR ---
Pharmacy Service has performed discharge medication reconciliation for this patient. The patient's discharge medication list was reviewed for discrepancies and discrepancies were resolved. Home Medications multivitamin 1 cap PO QAM 02/11/18 fluticasone propionate 50 mcg/actuation nasal spray,suspension 2 spray INTRANASAL DAILY PRN g 05/19/19 albuterol sulfate 90 mcg/actuation aerosol inhaler 2 puff INHALATION Q4H PRN PRN #8.5 g 12/29/19 Amlodipine Besylate [Norvasc] 10 mg PO QDAY 03/16/20 hydrocortisone acetate 25 mg rectal suppository 25 mg RC BID #14 ea 04/13/20 Cephalexin [Keflex] 500 mg PO Q12 3 Days #6 cap 06/16/20 Oxycodone HCl/Acetaminophen [Percocet 5/325] 2 tab PO Q8H PRN PRN 7 Days #20 tab 06/16/20
== END 2020-06-16 10:15 | disposition home or self-care (01) ==
LOC: MS3 06-16 14:14
PROVIDERS: Anesthesiology; Admitting Provider Urology; PCP Internal Medicine; Referring Provider Urology; Visit Provider Urology
PROC: (CPT 57260; principal; 2020-06-15 10:10)
DX: N81.6 Rectocele (principal); Z11.59 Encounter for screening for other viral diseases; F17.210 Nicotine dependence, cigarettes, uncomplicated; M19.90 Unspecified osteoarthritis, unspecified site; K21.9 Gastro-esophageal reflux disease without esophagitis; I10 Essential (primary) hypertension; J44.9 Chronic obstructive pulmonary disease, unspecified; N39.41 Urge incontinence; R35.1 Nocturia; N90.5 Atrophy of vulva; N95.2 Postmenopausal atrophic vaginitis; Z79.899 Other long term (current) drug therapy
CPT/HCPCS: 57250; 36415; 71046; 80048; 85025; 87635; 93005; 94799; 96361; 96365; 96366; 96372; 96375; 96376; 99218; 99251; 99406; J7120; C1758; G0378; G0379; G0463; J2405; U0003

== ENCOUNTER → 2020-07-20 15:53 | Outpatient (CLI) | payer MEDICARE, MEDICAID, SELFPAY ==
[2020-07-20 15:19] VITALS: BMI 22.6
[2020-07-20 17:16] LABS: Erythrocyte Sedimentation Rate 16 mm/hr (0-30)
[2020-07-20 17:24] LABS: Cholesterol 240 mg/dL (200); High Density Lipoprotein 74 mg/dL; T4 Free Direct 1.22 ng/dL (0.76-1.46); Thyroid Stim Hormone (TSH) 1.38 uIU/mL (0.358-3.74); Triglycerides 159 mg/dL; Very Low Density Lipoprotein 32 mg/dL (5-40)
== END ==
PROVIDERS: PCP Internal Medicine; Referring Provider Internal Medicine; Visit Provider Internal Medicine
DX: E78.5 Hyperlipidemia, unspecified (principal); R63.4 Abnormal weight loss
CPT/HCPCS: 36415; 80061; 84439; 84443; 85652

== ENCOUNTER → 2020-08-20 12:25 | Outpatient (CLI) | payer MEDICARE, MEDICAID, SELFPAY ==
[2020-07-20 15:19] VITALS: BMI 22.6
--- NOTE | 2020-08-20 12:37 | BI_ITS ---
MAMMOGRAPHY - BILATERAL SCREENING REASON FOR EXAM: Female, 70 years old. Routine annual screening examination. PERTINENT HISTORY: Non-contributory. Remote left stereotactic breast biopsy. TECHNIQUE: Digital bilateral breast claudio (3D mammographic acquisition) in the CC and MLO projections. 2-D mediolateral oblique (MLO) and craniocaudad (CC) views of both breasts were obtained. CAD: Full Field Digital Mammography with Computer Added Detection was performed. COMPARISON: Comparison is made with prior study dated 08/19/2019 and 08/16/2018. FINDINGS: Breast Composition: The breasts are heterogeneously dense, which may obscure small masses. There are no dominant masses or suspicious calcifications. No other significant abnormalities are identified. There has been no significant change since the prior study. BI/SCREEN MAMM (CAD) W/CLAUDIO BILAT IMPRESSION: Stable bilateral screening mammogram. Yearly follow-up mammogram recommended. (A) ASSESSMENT CATEGORY: BIRADS Category 1: Negative. A letter regarding these results will be sent to the patient by the facility within 30 days. Approximately 10% of breast cancers are not detected by mammography. A normal mammogram should not delay biopsy of a clinically suspicious abnormality. [id number] Electronically Signed: Jorge Pollard, at 13:42 EDT , Service support ,
== END ==
PROVIDERS: PCP Internal Medicine; Referring Provider Internal Medicine; Visit Provider Internal Medicine
DX: Z12.31 Encounter for screening mammogram for malignant neoplasm of breast (principal)
CPT/HCPCS: 77063; 77067

== ENCOUNTER 2020-09-14 09:09 | Day surgery (SDC) | payer MEDICARE, MEDICAID, SELFPAY ==
[2020-09-09 14:30] VITALS: BMI 22.3
--- NOTE | 2020-09-14 | IMM_PTH ---
PATIENT: MAL STEVENSON [place] [facility] [id number] AGE/SX: 70/F ROOM: RE09/14/[address]: Dr. Mykel Main MD : 1950 BED: DIS: 09/14/2020 SPEC #: [id number] RECD: 09/15/20 09:56 STATUS: GRACE REQ #: [id number] JAKE: 09/14/20 00:[address]: Mykel Main DEPT: IMMUNOHISTOCHEMISTRY RECD BY: Ethel Wu ENTERED: 09/15/20 09:57 SP TYPE: IMMUNO OTHR DR: Dr. 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 Localization is made via biotin free immunoperoxidase method. Appropriate controls are performed and reacted as expected. Results on target cell population are indicated in the following table: RESULTS: ANTIBODY / CLONE RESULT CK5-6 (D5 & 1684) positive P40 (BC28) positive P16 (E6H4) positive, block staining CK8 (31nmgjR50) negative CK7 (OV-TL12/30) positive CK20 (KS20.8) negative These tests were developed and their performance characteristics determined by [facility]. They may not have been cleared or approved by the U.S. Food and Drug Administration. The FDA has determined that such clearance or approval is not necessary. The above immunohistochemical/dualISH markers are ordered and reviewed by the Pathologist. INTERPRETATION: Anal mass, biopsy: Invasive squamous cell carcinoma. SJ:ria 09/15/20
--- NOTE | 2020-09-14 | MASS_PTH ---
PATIENT: MAL STEVENSON LOC: [facility] U#:[id number] AGE/SX: 70/F ROOM: RE09/14/[address]: Dr. Mykel Main MD : 1950 BED: DIS: 09/14/2020 SPEC #: [id number] RECD: 09/14/20 12:34 STATUS: GRACE REVentura #: [id number] JAKE: 09/14/20 00:[address]: Mykel Main DEPT: SURGICAL PATHOLOGY RECD BY: Ethel Wu ENTERED: 09/14/20 13:09 SP TYPE: Mass OTHR DR: Dr. Bernard Grider MD Tissues: Anal region Procedures: Frozen Section (charge) Surgery Specimen Level IV HEADER OPERATION: Biopsy of anal mass under anesthesia PRE-OP DIAGNOSIS: Anal mass TISSUE SUBMITTED: Squamous cell cancer of anus, frozen section FROZEN SECTION DIAGNOSIS Anal mass, core biopsy: Invasive, keratinizing well to moderately differentiated squamous cell carcinoma. 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 See comment. SJ:ria 09/15/20 COMMENT Immunohistochemistry ([id number]) supports the above diagnosis. The results for immunohistochemistry for surrogate HPV marker (p16) will be reported separately. This case is discussed with Dr. Vo on 09/15/20 MICROSCOPIC DESCRIPTION Slides are reviewed. GROSS DESCRIPTION Received fresh for frozen section consultation labeled with the patient's name is a specimen designated anal mass. The specimen consists of two cores of light johnson soft tissue. Each core has an average length of 1.5 cm and average diameter of 0.1 cm. The specimen is submitted in its entirety for frozen section consultation in one block. / AM:ria 09/14/20 TC:0 CPT: 43423, 54266
[2020-09-14 09:41] VITALS: BP 149/72; PULSE 71; RESP 16; TEMP 36.4; O2SAT 94; BMI 21.8
[2020-09-14] MEDS: Lactated Ringers 1,000 ML 100 ML IV (09:47)
--- NOTE | 2020-09-14 11:48 | HP.PCM_ITS ---
History and Physical Date of Admission: 09/14/20 [facility] [address] [place], [place] [address] OFFICE VISIT Date of Service: 09/09/20 MR#: [id number] Acct: [id number] Name: MAL STEVENSON Rep #: [id number] : 1950 Provider: Dr. 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: No Is patient in pain?: Yes Allergies simvastatin [From Zocor] Allergy (Verified 09/14/20 09:25) Pain in joints NSAIDS (Non-Steroidal Anti-Inflamma Adverse Reaction (Verified 09/14/20 09:25) Upset Stomach Medications multivitamin 1 cap PO QAM 02/11/18 [History Confirmed 09/14/20] fluticasone propionate 50 mcg/actuation nasal spray,suspension 2 spray INTRANASAL DAILY PRN g 05/19/19 [History Confirmed 09/14/20] Amlodipine Besylate [Norvasc] 10 mg PO QDAY 03/16/20 [History Confirmed 09/14/20] albuterol sulfate 90 mcg/actuation aerosol inhaler 2 puff INHALATION Q4H PRN PRN #8.5 g 07/30/20 [Rx Confirmed 09/14/20] PFS Medical History High blood pressure (Chronic) Actinic keratosis of left amish (Acute) Chronic back pain (Chronic) GERD (gastroesophageal reflux disease) (Chronic) COPD (chronic obstructive pulmonary disease) (Chronic) Asthma (Chronic) Osteoarthritis (Chronic) Seasonal allergies (Chronic) History of fall (Acute) Surgical History History of carpal tunnel release (Acute) History of colonoscopy (Acute ~09/2017) History of colonoscopy (Acute ~02/2020) History of esophagogastroduodenoscopy (EGD) (Acute ~02/2020) History of hysterectomy (Acute) History of knee replacement (Acute) History of tonsillectomy (Acute) Family History Mother CHF (congestive heart failure) Diabetes Sister , age 70 Diabetes Sister CHF (congestive heart failure) Social History (Updated 09/14/20 @ 09:[address] Mykel Main MD) Smoking Status: Current every day smoker tobacco type: cigarettes Tobacco: How many years used: 40 Electronic Cigarette Use: not used second hand exposure: No counseling given: provider counseling alcohol intake: current substance use type: does not use what type of physical activity do you participate in: none HPI HPI HPI: MAL STEVENSON, is a 70 F who presents to the office today for HPI HPI HPI: MAL STEVENSON, is a 70 F who presents to the office today for Prolapsing painful hemorrhoid. Patient has been complaining of a prolapsing hemorrhoid on the left side of her perianal area. I done a colonoscopy on her in the past which showed some internal hemorrhoids that were not actively bleeding. She had recently had surgery for a cystocele and since then this is developed over the last several weeks and has been calm increasingly more disc comforting for her. Exam Const General: healthy appearing, no acute distress, well developed, well hydrated Orientation: oriented x3, oriented to person, oriented to place, oriented to time HENMT Other: HEMNT Exam: Deferred Resp Other: Respiratory Exam: Deferred Cardio Other: Cardiac Exam: Deferred GI Other: GI Exam: Deferred Other: Prolapsing hemorrhiod in Left lateral side.This is a grade 3 hemorrhoid. Digital rectal exam deferred Extrem Other: Extremity Exam: Deferred Assessment & Plan Problems 1. Prolapsed internal hemorrhoids, grade 3 K64.2 Plan Plan will be to excise this in the OR. Risk benefits have been reviewed with the patient and she agrees to proceed. She understands that there is going to be some significant discomfort from this and that she is going to have to try to keep her bowels as loose as possible and do sitz bath's. Patient also understands that there is a possibility for injury to the rectum musculature. And the possibility of infection. Coding Level of Care Code Off vis,est,level 3 Diagnoses Prolapsed internal hemorrhoids, grade 3 K64.2 COVID (Procedure Consent) Procedure Criteria Procedure Criteria: Yes Elective The surgeon/proceduralist and patient have discussed in detail the risk of exposure to and/or potential harm posed by the COVID-19 virus with having a surgery/procedure at this time versus the risk of? delaying the surgery/procedure. It is not possible to know either the risk of delaying the surgery or procedure or chance of getting an infection with perfect accuracy, but a joint decision was made between the patient and the surgeon/proceduralist ?to proceed at this time with the scheduled surgery/procedure as indicated on the consent form. 09/14/20 0936 <Electronically signed by Mykel arshad MD> Date _ Mykel Main MD [facility] Signature: Date (if applicable) CC: Dr. Bernard Grider MD ~ I have re-examined the patient. There are no clinical changes since date of exam.
[2020-09-14] MEDS: Cefazolin 2 GM in 0.9% Normal Saline 100 ML IV (12:00)
[2020-09-14] MEDS: Lubricating Jelly 60 GM Tube 30 GM TOPICAL (12:28)
[2020-09-14] MEDS: BUPIVACAINE LIPOSOME/PF 20 ML VIAL OPERA.SITE (12:28)
[2020-09-14 13:00] VITALS: BP 146/113; BP 149/72; PULSE 71; RESP 16; TEMP 36.3; O2SAT 92
[2020-09-14 13:15] VITALS: BP 133/62; BP 149/72; PULSE 72; RESP 16; O2SAT 95
[2020-09-14 13:30] VITALS: BP 143/54; BP 149/72; PULSE 75; RESP 16; TEMP 36.4; O2SAT 98
--- NOTE | 2020-09-14 13:35 | DCINST_ITS ---
Discharge Diet: No Restrictions Discharge Activity: Return to Normal Activity, May Not Drive - while taking narcotic pain medications. Additional Activity Instructions:: Do not drive or work with heavy equipment or sign legal documents for 24 hours. Be aware that pain medications may cause nausea. You should typically eat light foods as you take your pain medications. Pain medications may also cause constipation, if you have difficulty with this please discuss with your doctor. Additional Dressing/Incision Instructions:: Leave the operative bandage on for 2 days. If a local anesthetic plug was placed in the anal area, try not to expel for 24-[address] dibucaine ointment on the perianal area as needed. Sitz baths twice daily and after bowel movements. Allergies/Adverse Reactions: Allergies simvastatin [From Zocor] Allergy (Verified 09/14/20 09:25) Pain in joints NSAIDS (Non-Steroidal Anti-Inflamma Adverse Reaction (Verified 09/14/20 09:25) Upset Stomach Medications to take at Discharge multivitamin 1 cap PO QAM 02/11/18 fluticasone propionate 50 mcg/actuation nasal spray,suspension 2 spray INTRANASAL DAILY PRN g 05/19/19 Amlodipine Besylate [Norvasc] 10 mg PO QDAY 03/16/20 albuterol sulfate 90 mcg/actuation aerosol inhaler 2 puff INHALATION Q4H PRN PRN #8.5 g 07/30/20 Primary Care Physician: Bernard Grider MD [Primary Care Provider] - Test Results: Test results from this visit will be discussed in further detail at your follow- up appointment, if applicable. Please Follow Up With: Mykel Main MD - [phone] When: Plan to have a follow up approximately 7 days after surgery. Please Follow Up With: Kalpesh Vo MD When: Tomorrow
--- NOTE | 2020-09-14 13:38 | PCM.OPRPT ---
Problem List (1) Prolapsed internal hemorrhoids, grade 3 Status: Acute (2) Squamous cell cancer, anus Status: Acute Report of Operation Date of Procedure: 09/14/20 Pre-Operative Diagnosis: Grade 3 prolapsing hemorrhoid Post-Operative Diagnosis: Squamous cell cancer of the anus Surgery/Procedure Performed:: 1. Exam perianal area under anesthesia. 2. Biopsy of anal mass Type of Anesthesia:: General Anesthesiologist: Willy Malave Estimated Blood Loss (mL): < 25 cc Description of Procedure: Patient was brought into the operating room. Placed in the supine position. Under excellent general anesthetic she was then rotated in the prone position and properly padded. Buttocks was taped apart. The buttocks and perianal area was sterilely prepped with Betadine. Drapes were applied. On exam what I thought was initially a grade 3 prolapsing hemorrhoid turned out to be a hard mass in the anus. I injected local made a skin sanya and took 2 needle core biopsies of this and sent them off for a frozen section which came back as well differentiated squamous cell cancer. I placed Surgicel on the wound and applied pressure good in the stasis was achieved. She was sent back to the recovery room after being extubated in good condition. I spoke with the patient and immediately told her what I had found. I had gone to oncology and spoke to Dr. Lindsay and he will be seeing her tomorrow. I also informed her that she was more likely going to obtain CAT scans of the chest abdomen and pelvis after seeing him. [id number]: [id number] Anoscopy and biopsy
[2020-09-14 14:00] VITALS: BP 149/72
== END 2020-09-14 14:22 | disposition home or self-care (01) ==
LOC: SDC 09:10 → AC 09:11
PROVIDERS: PCP Internal Medicine; Referring Provider Surgery; Visit Provider Surgery
PROC: (CPT 46606; principal; 2020-09-14 11:45)
DX: C21.0 Malignant neoplasm of anus, unspecified (principal); I10 Essential (primary) hypertension; K21.9 Gastro-esophageal reflux disease without esophagitis; J44.9 Chronic obstructive pulmonary disease, unspecified; J45.909 Unspecified asthma, uncomplicated; G89.29 Other chronic pain; M54.9 Dorsalgia, unspecified; M19.90 Unspecified osteoarthritis, unspecified site; F17.210 Nicotine dependence, cigarettes, uncomplicated; Z20.828 Contact with and (suspected) exposure to other viral communicable diseases; G25.81 Restless legs syndrome
CPT/HCPCS: 00902; 46606; 87426; 88304; 88305; 88331; 88341; 88342; C9803; J7120; J2405

== ENCOUNTER → 2020-09-27 11:19 | Outpatient (CLI) | payer MEDICARE, MEDICAID, SELFPAY ==
[2020-09-14 09:41] VITALS: BMI 21.8
[2020-09-22 11:00] VITALS: BMI 21.4
[2020-09-27 10:09] VITALS: BMI 21.7
--- NOTE | 2020-09-27 11:23 | MRI_ITS ---
HISTORY: STAGING ANAL CANCERrectal pain , radiation tx now ADDITIONAL HISTORY: None provided. COMPARISON: None TECHNIQUE: Multiplanar, multisequence MRI of the pelvis without and with 12 mL dotarem IV contrast. FINDINGS: BLADDER: Unremarkable. REPRODUCTIVE ORGANS: Hysterectomy. No adnexal mass. IMAGED GI TRACT: Colonic diverticulosis. Intermediate signal intensity mass along the right side of the anus measuring 4.3 x 3.3 x 5 cm in AP by transverse by craniocaudal dimensions. The mass invades to the sphincter with irregular margin along the peripheral aspect of the mass anteriorly and on the right side. The mass appears to protrude external to the anus inferiorly. It is inseparable from the adjacent posterior wall of the vagina inferiorly on the right. ABDOMINAL WALL: Unremarkable. LYMPH NODES: No pathologic appearing adenopathy. FREE FLUID: None. SKELETON AND SOFT TISSUES: No acute skeletal findings. No suspicious bone lesion. MRI/Pelvis W/WO Contrast IMPRESSION: Locally invasive anal cancer, as described. at 0323 Reported and signed by: Heather Fleming MD Electronically Signed: Heather Fleming MD at 3:23 EST Tel , Service support ,
== END ==
PROVIDERS: PCP Internal Medicine; Referring Provider Internal Medicine Hematology & Oncology; Visit Provider Internal Medicine Hematology & Oncology
DX: C21.0 Malignant neoplasm of anus, unspecified (principal)
CPT/HCPCS: 72197; A9575

== ENCOUNTER 2020-09-30 07:15 | Day surgery (SDC) | payer MEDICARE, MEDICAID, SELFPAY ==
[2020-09-22 11:00] VITALS: BMI 21.4
[2020-09-27 10:09] VITALS: BMI 21.7
[2020-09-29 08:25] VITALS: BMI 21.6
[2020-09-30] VITALS (8 sets, daily range): BP systolic 128–149; BP diastolic 63–80; PULSE 64–84; RESP 16–20; TEMP 36.4–36.8; O2SAT 94–99; BMI 21.5
[2020-09-30] MEDS: Lactated Ringers 1,000 ML 100 ML IV ×2 (07:51→10:45)
--- NOTE | 2020-09-30 08:39 | HP.PCM_ITS ---
Problem List (1) Squamous cell cancer, anus Status: Acute History of Present Illness Date of Admission: 09/30/20 Chief Complaint: anal cancer The patient is a 70 year old F [who underwent a rectocele repair, was diagnosed with squamous cell carcinoma of the anus, and now presents for biopsy of the vaginal mucosa.] Past Medical History Past Medical History (Chronic Problems): Chronic Problems (Last Reviewed 09/27/20 @ 10:20 by Janell Rubin RN) Iron deficiency anemia due to chronic blood loss (Chronic) Diverticular disease (Chronic) Prolapsed internal hemorrhoids, grade 3 (Chronic) Rectocele (Chronic) Degenerative disc disease, lumbar (Chronic) Sinusitis (Chronic) Fatigue (Chronic) Cystocele (Chronic) Knee pain (Chronic) Sacroiliitis (Chronic) High blood pressure (Chronic) Actinic keratosis of left yarsanism (Chronic) Chronic back pain (Chronic) GERD (gastroesophageal reflux disease) (Chronic) COPD (chronic obstructive pulmonary disease) (Chronic) Asthma (Chronic) Osteoarthritis (Chronic) Seasonal allergies (Chronic) Tobacco dependence (Chronic) Migraine (Chronic) HTN (hypertension) (Chronic) Anxiety disorder (Chronic) Medical History: Medical History (Last Reviewed 09/30/20 @ 08:[address] Gwen Roman MD) High blood pressure (Chronic) I10 Actinic keratosis of left yarsanism (Chronic) L57.0 Chronic back pain (Chronic) M54.9, G89.29 GERD (gastroesophageal reflux disease) (Chronic) K21.9 COPD (chronic obstructive pulmonary disease) (Chronic) J44.9 Asthma (Chronic) J45.909 Osteoarthritis (Chronic) M19.90 Seasonal allergies (Chronic) J30.2 Anal cancer C21.0 History of fall Z91.81 2 separate episodes - accidentally tripped both times Allergies simvastatin [From Zocor] Allergy (Verified 09/30/20 07:22) Pain in joints NSAIDS (Non-Steroidal Anti-Inflamma Adverse Reaction (Verified 09/30/20 07:22) Upset Stomach Home Medications: Ambulatory Orders Medication Instructions Recorded multivitamin 1 cap PO QAM 02/11/18 fluticasone propionate 50 2 spray INTRANASAL DAILY PRN g 05/19/19 mcg/actuation nasal spray,suspension Amlodipine Besylate [Norvasc] 10 mg PO QDAY 03/16/20 albuterol sulfate 90 mcg/actuation 2 puff INHALATION Q4H PRN PRN #8.5 07/30/20 aerosol inhaler g Lidocaine/Prilocaine 1 applic TP DAILY PRN PRN 30 Days 09/22/20 [Lidocaine-Prilocaine Cream] #1 tube Loperamide [Imodium] 2 mg PO Q2H PRN PRN 10 Days #30 cap 09/22/20 Ondansetron [Zofran Odt] 4 mg PO Q8H PRN PRN 10 Days #30 tab 09/22/20 oxycodone-acetaminophen 5 mg-325 1 tab PO Q4H PRN #30 tab 09/22/20 mg tablet Surgical History: Surgical History (Last Reviewed 09/30/20 @ 08:[address] Gwen Roman MD) History of carpal tunnel release Z98.890 History of colonoscopy Onset Date: ~09/2017 Z98.890 History of colonoscopy Onset Date: ~02/2020 Z98.890 History of esophagogastroduodenoscopy (EGD) Onset Date: ~02/2020 Z98.890 History of hysterectomy Z90.710 History of knee replacement Z96.659 History of tonsillectomy Z90.89 Smoking Status: Current every day smoker Tobacco Use: Non-smoker - *Family History Maternal Family History: Family History (Last Reviewed 09/30/20 @ 08:[address] Gwen Roman MD) Mother CHF (congestive heart failure) Diabetes Sister Diabetes Sister CHF (congestive heart failure) History Items: No pertinent history Review of Systems Constitutional: Denies: Anorexia, Chills, Fever, Night Sweats Eyes: Denies: Vision Change HEENT: Denies: Difficulty Hearing, Difficulty Swallowing, Visual Changes Cardiovascular: Denies: Chest Pain Respiratory: Denies: Hemoptysis Gastrointestinal: Denies: Abdominal Pain, Nausea, Vomiting Genitourinary: Denies: Dysuria, Frequency, Hematuria, Incontinence Gynecological: Denies: Vaginal bleeding, Vaginal discharge, Vaginal itching Musculoskeletal: Denies: Muscle pain Skin: Denies: Wounds Neurological: Denies: Difficulty swallowing Psychiatric: Reports: Anxiety Endocrine: Denies: Change in Body Habitus Hematologic/ Lymphatic: Denies: Petechiae VTE Information - Inpt Only VTE Present on Admission: Yes VTE Mechan Device Prophylaxis: SCD's VTE Pharm Prophylaxis ordered?: No Reason prophylaxis not ordered:: Treatment Not Indicated - Physical Exam Vitals/I&O's: Vital Signs Temp Pulse Resp BP Pulse Ox 97.9 F 84 16 131/64 H 95 09/30/20 07:44 09/30/20 07:44 09/30/20 07:44 09/30/20 07:44 09/30/20 07:44 Oxygen Delivery Method Room Air Weight: 58.7 kg Body Mass Index (BMI) 21.5 Finger Stick Blood Glucose 168 General: Alert, Oriented x3, Cooperative HEENT: Atraumatic, Normocephalic Oral: Moist Mucosa Neck: Supple, Trachea Midline Lungs: Normal air movement Cardiovascular: Regular rate, Regular Rhythm Abdomen: Soft, Non Tender Extremities: No cyanosis Skin: No rashes Musculoskeletal: No Muscle Wasting Neurological: Cranial nerves II-XII grossly intact, Neuro grossly intact Psych/Mental Status: Anxious, Alert and oriented to time, place, person, mood and affect Microbiology Past 72 Hours 09/29/20 10:05 Interface Orders SARS-CoV-2 Antigen (Rapid) - Final Current Medications Lactated Ringer's () 1,000 mls @ 100 mls/hr IV .Q10H MICHEL Last Admin: 09/30/20 07:51 Dose: 100 mls/hr Documented by: Assessment/Plan All Active Problems (Last Reviewed 09/27/20 @ 10:20 by Janell Rubin RN) Encounter for education (Acute) Squamous cell cancer, anus (Acute) Proceed with biopsy of posterior vaginal mucosa Procedure Criteria Procedure Type: Elective COVID Risk Discussion: The surgeon/proceduralist and patient have discussed in detail the risk of exposure to and/or potential harm posed by the COVID-19 virus with having a surgery/procedure at this time versus the risk of delaying the s urgery/procedure. It is not possible to know either the risk of delaying the surgery or procedure or chance of getting an infection with perfect accuracy, but a joint decision was made between the patient and the surgeon/proceduralist to proceed at this time with the scheduled surgery/procedure as indicated on the consent form.
--- NOTE | 2020-09-30 09:20 | HP_ITS ---
Intake Vital Signs 09/22/20 Height 5 ft 5 in 09/22/20 BP 160/71 H 09/22/20 Blood Pressure Location Rt brachial 09/22/20 Position Sitting 09/22/20 Respiration 22 H 09/22/20 Pulse 68 09/22/20 Pulse Source NIBP 09/22/20 Temp 97.4 F L 09/22/20 Temp Source Temporal 09/22/20 Pulse Oximetry (%) 95 09/22/20 Oxygen Delivery Method room air Intake Visit Reasons: Port Placement Chief Complaint: port consult Otorhinolaryngologist Required: No Is patient in pain?: Yes Allergies simvastatin [From Zocor] Allergy (Verified 09/22/20 08:36) Pain in joints NSAIDS (Non-Steroidal Anti-Inflamma Adverse Reaction (Verified 09/22/20 08:36) Upset Stomach Medications multivitamin 1 cap PO QAM 02/11/18 [History Confirmed 09/22/20] fluticasone propionate 50 mcg/actuation nasal spray,suspension 2 spray INTRANASAL DAILY PRN g 05/19/19 [History Confirmed 09/22/20] Amlodipine Besylate [Norvasc] 10 mg PO QDAY 03/16/20 [History Confirmed 09/22/20] albuterol sulfate 90 mcg/actuation aerosol inhaler 2 puff INHALATION Q4H PRN PRN #8.5 g 07/30/20 [Rx Confirmed 09/22/20] Oxycodone HCl/Acetaminophen [Percocet 5/325] 1 - 2 tab PO Q4H PRN PRN #30 tab 09/14/20 [Rx Confirmed 09/22/20] Loperamide [Imodium] 2 mg PO Q2H PRN PRN #60 cap 09/17/20 [Rx Confirmed 09/22/20] oxycodone-acetaminophen 5 mg-325 mg tablet 1 tab PO Q4H PRN #30 tab 09/22/20 [Rx Confirmed 09/22/20] Is last menstrual period known: No Post menopausal: Yes Patient : No PFSH Medical History High blood pressure (Chronic) Actinic keratosis of left christian (Chronic) Chronic back pain (Chronic) GERD (gastroesophageal reflux disease) (Chronic) COPD (chronic obstructive pulmonary disease) (Chronic) Asthma (Chronic) Osteoarthritis (Chronic) Seasonal allergies (Chronic) Anal cancer (Acute) History of fall (Acute) Surgical History History of carpal tunnel release (Acute) History of colonoscopy (Acute ~09/2017) History of colonoscopy (Acute ~02/2020) History of esophagogastroduodenoscopy (EGD) (Acute ~02/2020) History of hysterectomy (Acute) History of knee replacement (Acute) History of tonsillectomy (Acute) Family History Mother CHF (congestive heart failure) Diabetes Sister , age 70 Diabetes Sister CHF (congestive heart failure) Social History (Updated 09/22/20 @ 08:[address] Mykel Main MD) Smoking Status: Current every day smoker tobacco type: cigarettes Tobacco: How many years used: 40 Electronic Cigarette Use: not used second hand exposure: No counseling given: provider counseling alcohol intake: current substance use type: does not use what type of physical activity do you participate in: none HPI HPI Surgical H&P: Yes HPI: MAL STEVENSON, is a 70 F who presents to the office today for Evaluation for vascular access. Patient underwent an exam under anesthesia and biopsy of an anal mass which came back as an invasive keratinizing well to moderately differentiated squamous cell carcinoma she is here today for evaluation and placement of a PowerPort. ROS General General: Yes weight change and fatigue; no appetite, colon cancer, breast cancer or weakness HEENT HEENT: No difficulty swallowing, eye injury, eye surgery, swollen glands or hoarseness Endo Endocrine: No thyroid disease, diabetes mellitus, thyroid cancer, Hair loss, heat intolerance or cold intolerance Musc Musculoskeletal: No back problems, arthritis, rheumatoid arthritis, gout or joint pain Cardio Cardiovascular: No murmur, pacemaker, heart disease, atrial fibrillation, high blood pressure, heart attack, heart stent, palpitations, shortness of breat with exertion or chest pain Psych Psychiatric: Yes anxiety; no depression or hearing voices Resp Respiratory: Yes shortness of breath, No sleep apnea, No cough, Yes COPD, Yes asthma, No emphysema, No wheezing Gastro Gastrointestinal: No abdominal pain, No nausea or vomiting, No diarrhea, No constipation, No blood in stool, Yes acid reflux, Yes hemorrhoids, No ulcers, No gallbladder problem, No black,tarry stools Uri Hematologic: No blood thinners, No blood disorders, No bleeding, No anemia, No blood clots Neuro Neurologic: No weakness Exam Const General: no acute distress, well developed, well hydrated Orientation: oriented to person, oriented to place, oriented to time [facility] Head: normocephalic, atraumatic Ears: external ears normal Mouth: moist mucous membranes Eyes Sclera: sclerae normal Pupils: normal by confrontation Neck Neck: no lymphadenopathy noted Neck mass: No Thyroid: thyroid normal, symmetrical Chest Chest palpation & inspection: normal inspection of the chest Resp Effort & Inspection: normal respiratory effort Auscultation: clear to auscultation bilaterally Percussion: percussion normal Cardio Rate: regular rate Rhythm: regular rhythm Heart Sounds: no murmurs GI Palpation: soft, no hepatosplenomegaly, no masses, nontender Rectal Exam: other Other: Rectal exam deferred. Extrem General: normal to inspection, no clubbing, cyanosis or edema Assessment & Plan Problems 1. Admission for fitting and adjustment of vascular catheter Z45.2 Plan I plan to perform a Right internal jugular port a cath placement. The planned surgical procedure was discussed extensively with the patient. The risks, benefits, anticipated outcomes and possible complication were mentioned. My staff has also explained the procedure in understandable terms and the patient was given the option to take printed material concerning the planned procedure. The patient had the opportunity to ask questions concerning the planned procedure. The patient freely consents to the planned procedure. Medications New: oxycodone-acetaminophen 5-325 mg (Percocet) 1 tab PO Q4H PRN 30 tabs 0RF pain Coding Level of Care Code Off vis,est,level 3 Diagnoses Admission for fitting and adjustment of vascular catheter Z45.2 COVID (Procedure Consent) Procedure Criteria Procedure Criteria: Yes Elective The surgeon/proceduralist and patient have discussed in detail the risk of exposure to and/or potential harm posed by the COVID-19 virus with having a surgery/procedure at this time versus the risk of? delaying the surgery/procedure. It is not possible to know either the risk of delaying the surgery or procedure or chance of getting an infection with perfect accuracy, but a joint decision was made between the patient and the surgeon/proceduralist ?to proceed at this time with the scheduled surgery/procedure as indicated on the consent form. I have re-examined the patient. There are no clinical changes since date of exam.
--- NOTE | 2020-09-30 09:35 | VAGMU_PTH ---
PATIENT: MAL STEVENSON LOC: [facility] [place] U#:[id number] AGE/SX: 70/F ROOM: RE09/30/[address]: Dr. Mykel Main MD : 1950 BED: DIS: 09/30/2020 SPEC #: [id number] RECD: 09/30/20 11:10 STATUS: GRACE MARISA #: [id number] JAKE: 09/30/20 09:[address]: Mykel Main DEPT: SURGICAL PATHOLOGY RECD BY: Dianelys Kaufman ENTERED: 09/30/20 11:30 SP TYPE: VAG MUCOSA OTHR DR: MD Dr. Gwen Escobedo MD Tissues: Vagina, NOS Procedures: Surgery Specimen Level IV HEADER OPERATION: IJ port placement PRE-OP DIAGNOSIS: Vascular catheter fitting and adjustment TISSUE SUBMITTED: Vaginal mucosa biopsy MICROSCOPIC DIAGNOSIS Vaginal mucosa, biopsy: A piece of squamous mucosa with mild chronic inflammation and reactive changes. Negative for malignancy. 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 MICROSCOPIC DESCRIPTION Slides are reviewed. GROSS DESCRIPTION Received in fixative is one container labeled with the patient's name and designated vaginal mucosa biopsy. The specimen consists of a piece of johnson mucosal tissue measuring 0.5 x 0.3 x 0.2 cm. The specimen is totally submitted in one cassette. / RAYNA:ria 09/30/20 TC:3 CPT: 88985
[2020-09-30] MEDS: Cefazolin 2 GM in 0.9% Normal Saline 100 ML IV (09:48)
[2020-09-30] MEDS: Bupivacaine Mpf 0.5% 30 ML VIAL (10:06)
[2020-09-30] MEDS: Lidocaine 1% (30 ml sdv) 30 ML Vial (10:06)
--- NOTE | 2020-09-30 11:19 | PCM.OPRPT ---
Problem List (1) Squamous cell cancer, anus Status: Acute Report of Operation Date of Procedure: 09/30/20 Pre-Operative Diagnosis: Squamous cell carcinoma of the anus Post-Operative Diagnosis: Same Surgery/Procedure Performed:: Posterior wall vaginal mucosal biopsy Type of Anesthesia:: Local MAC Specimen's removed: Posterior vaginal mucosa Description of Procedure: The patient is a 70-year-old female who had a posterior repair in May. She was recently diagnosed with squamous cell carcinoma of the anus. On reexamination there is a firmness to the posterior vaginal mucosa. Visually there is no change in the tissue. The decision was made to proceed with biopsy. She is here for port basement and vaginal biopsy. Consent was obtained including discussion of the risks of COVID-19. The patient was taken to the operating room and placed on the operating room table. Anesthesia monitored the head, neck, airway, IV access and vital signs throughout the case. Once anesthesia was appropriately administered, Dr. Main proceeded with port placement. At this time the patient was repositioned lower on the table and placed into dorsal lithotomy position. She went underwent a vaginal prep and was draped in usual sterile fashion. The submucosa of the posterior vaginal wall was injected with local anesthetic. Using the knife, a biopsy was taken of the posterior vaginal mucosa, this was then closed with running interlocking 2-0 Vicryl. The patient was then awakened and taken to the recovery room in good condition. There were no complications during this procedure. - Complications None - Admit VTE Documentation VTE Present on Admission: Yes VTE Mechan Device Prophylaxis: SCD's VTE Pharm Prophylaxis ordered?: Yes
--- NOTE | 2020-09-30 11:23 | DCINST_ITS ---
Discharge Diet: No Restrictions - Pain medication may cause nausea. You should typically eat light foods as you take your pain medication. Discharge Activity: May Shower - with the bandage in place 1-2 days after surgery. DO NOT SHOWER WHEN YOUR PORT IS ACCESSED. May resume sexual activity in: 4 weeks Additional Activity Instructions:: May not drive, work with heavy equipment, or sign legal documents for [address] if you are no longer taking narcotic pain medications. You may drive when you are no longer taking pain medications. Call your doctor if your incision/area has: Continuous Slow Oozing, Sudden Increased Bleeding, Increased Pain/ Swelling, Increased Redness Call your doctor if you observe: Fever of 101 or Higher, Inability to urinate Additional Dressing/Incision Instructions:: Leave the bandage on for 2-3 days. When you remove the bandage, leave the steri-strips intact until they fall off. Allergies/Adverse Reactions: Allergies simvastatin [From Zocor] Allergy (Verified 09/30/20 07:22) Pain in joints NSAIDS (Non-Steroidal Anti-Inflamma Adverse Reaction (Verified 09/30/20 07:22) Upset Stomach Medications to take at Discharge multivitamin 1 cap PO QAM 02/11/18 fluticasone propionate 50 mcg/actuation nasal spray,suspension 2 spray INTRANASAL DAILY PRN g 05/19/19 Amlodipine Besylate [Norvasc] 10 mg PO QDAY 03/16/20 albuterol sulfate 90 mcg/actuation aerosol inhaler 2 puff INHALATION Q4H PRN PRN #8.5 g 07/30/20 Lidocaine/Prilocaine [Lidocaine-Prilocaine Cream] 1 applic TP DAILY PRN PRN 30 Days #1 tube 09/22/20 Loperamide [Imodium] 2 mg PO Q2H PRN PRN 10 Days #30 cap 09/22/20 Ondansetron [Zofran Odt] 4 mg PO Q8H PRN PRN 10 Days #30 tab 09/22/20 oxycodone-acetaminophen 5 mg-325 mg tablet 1 tab PO Q4H PRN #30 tab 09/22/20 Primary Care Physician: Bernard Grider MD [Primary Care Provider] - Test Results: Test results from this visit will be discussed in further detail at your follow- up appointment, if applicable. Please Follow Up With: Gwen Roman MD When: call for appt Proposed Discharge Date: 09/30/20
--- NOTE | 2020-09-30 11:25 | PCM.OPRPT ---
Problem List (1) Vascular catheter fitting or adjustment Status: Acute Report of Operation Date of Procedure: 09/30/20 Pre-Operative Diagnosis: Vascular fitting and adjustment Post-Operative Diagnosis: Same Surgery/Procedure Performed:: Placement of a right internal jugular PowerPort Type of Anesthesia:: Local MAC Anesthesiologist: Justin Galan Estimated Blood Loss (mL): < 5 cc Description of Procedure: Patient was brought into the operating room. Placed in the supine position. Bed was placed in the headdown position I ultrasound the neck identify the internal jugular vein I marked the neck and chest appropriately. Neck and chest were then sterilely prepped and draped in usual fashion. Local was injected into the neck. Seldinger's technique was used to gain access to the internal jugular vein. Guidewire was placed over the needle the needle was removed fluoroscopy was used to confirm proper placement of the guidewire. Local was injected into the chest. Incision was made electrocautery was used to create a pocket for the port. A skin sanya was made in the neck. Dilator and sheath were placed over the guidewire guidewire and dilator were removed. Single-lumen catheter was placed in the sheath and the sheath was removed. Fluoroscopy was used to confirm proper length. I tunneled from the pocket created over the collarbone into the neck brought the catheter down. Cut the catheter to length placed the locking up on the catheter the port onto the catheter and secured the 2 with a locking hub. It flushed and irrigated well and was flushed with 4 cc of Hepflush. Port was sutured into the pocket with 2 sutures of 2-0 Prolene. Skin incisions were brought together with deep dermal stitches of 3-0 Vicryl. Dermabond was applied. Sterile dressings were applied. The patient tolerated the procedure well. - Admit VTE Documentation VTE Present on Admission: No VTE Mechan Device Prophylaxis: SCD's VTE Pharm Prophylaxis ordered?: No Reason prophylaxis not ordered:: Treatment Not Indicated - Procedures Cardiovascular CF Procedures 33xxx-39xxx: [id number] Cath Placmt renal artery - +[id number], [id number]
--- NOTE | 2020-09-30 11:27 | RAD_ITS ---
STUDY: X-RAY CHEST REASON FOR EXAM: Female, 70 years old. POST PORT PLACEMENT TECHNIQUE: Single AP portable view of the chest. COMPARISON: Comparison is made with prior study dated 06/09/2020. FINDINGS: A right-sided lety catheter is in situ. The tip is at the junction of the superior vena cava and right atrium. The lungs are clear and expanded. There is no demonstrated pleural abnormality. Normal size heart. Normal mediastinum and angelo. Normal visualized pulmonary arteries. There is atherosclerotic calcification of the aortic arch with tortuosity. There are diffuse degenerative changes of the visualized thoracic spine. Dextroscoliosis Normal visualized ribs, clavicles, and shoulders. There is no demonstrated abnormality of the visualized soft tissue structures of the upper abdomen. RAD/CXR for Line Placement IMPRESSION: The tip of the right portacatheter is at the junction of the superior vena cava and right atrium. Electronically Signed: Jorge Pollard, at 14:42 EST , Service support ,
== END 2020-09-30 13:20 | disposition home or self-care (01) ==
LOC: SDC 07:15 → AC 08:18
PROVIDERS: Urology; PCP Internal Medicine; Referring Provider Surgery; Visit Provider Surgery
PROC: (CPT 36561; principal; 2020-09-30 09:20)
PROC: 0TJB8ZZ Inspection of Bladder, Via Natural or Artificial Opening Endoscopic (ICD-10-PCS; CPT 57410; 2020-09-30 09:20)
DX: Z45.2 Encounter for adjustment and management of vascular access device (principal); C21.0 Malignant neoplasm of anus, unspecified; I10 Essential (primary) hypertension; J44.9 Chronic obstructive pulmonary disease, unspecified; K21.9 Gastro-esophageal reflux disease without esophagitis; M19.90 Unspecified osteoarthritis, unspecified site; F17.210 Nicotine dependence, cigarettes, uncomplicated; Z79.899 Other long term (current) drug therapy; Z20.828 Contact with and (suspected) exposure to other viral communicable diseases
CPT/HCPCS: 36561; 57100; 71045; 77001; 77014; 87426; 88304; 88305; C9803; J7120; Q9967; A4216; C1788; J2405

== ENCOUNTER 2021-02-10 12:15 | Day surgery (SDC) | payer MEDICARE, MEDICAID, SELFPAY ==
[2020-09-27 10:09] VITALS: BMI 21.7
[2020-12-13 11:15] VITALS: BMI 18.1
[2021-02-10 12:53] VITALS: BP 113/56; PULSE 69; RESP 16; TEMP 36.9; O2SAT 91; BMI 17.9
[2021-02-10] MEDS: Lactated Ringers 1,000 ML 100 ML IV (13:20)
--- NOTE | 2021-02-10 13:30 | IMM_PTH ---
PATIENT: MAL STEVENSON LOC: [facility] U#:[id number] AGE/SX: 70/F ROOM: RE02/10/[address]: Dr. Mykel Main MD : 1950 BED: DIS: 02/10/2021 SPEC #: [id number] RECD: 02/11/21 09:20 STATUS: GRACE REVentura #: [id number] JAKE: 02/10/21 13:[address]: Mykel Main DEPT: IMMUNOHISTOCHEMISTRY RECD BY: Ethel Wu ENTERED: 02/11/21 09:20 SP TYPE: IMMUNO OTHR DR: Dr. Bernard Grider MD Tissues: Stomach, NOS Procedures: H Pylori (initial) PHYSICIAN & INSTITUTION [place] [id number] SPECIMEN INFORMATION: Tissue Source: Antral biopsy Clinical Info: Anal cancer, esophagus polyp Specimen Number: [id number] CPT code: 82410 METHODOLOGY: Deparaffinized sections of prefer/formalin-fixed tissue or PAP/DQ stained slides are incubated with monoclonal/polyclonal antibodies/oligonucleotide probes. Localization is made via biotin free immunoperoxidase method. Appropriate controls are performed and reacted as expected. Results on target cell population are indicated in the following table: RESULTS: ANTIBODY / CLONE RESULT H Pylori (polyclonal) negative These tests were developed and their performance characteristics determined by [facility]. They may not have been cleared or approved by the U.S. Food and Drug Administration. The FDA has determined that such clearance or approval is not necessary. INTERPRETATION: Antral biopsy: Negative for Helicobacter pylori organisms. RAYNA:ria 02/14/2021
--- NOTE | 2021-02-10 13:30 | EGD_PTH ---
PATIENT: MAL STEVENSON LOC: [facility] U#:[id number] AGE/SX: 70/F ROOM: RE02/10/[address]: Dr. Mykel Main MD : 1950 BED: DIS: 02/10/2021 SPEC #: [id number] RECD: 02/10/21 14:36 STATUS: GRACE REVentura #: [id number] JAKE: 02/10/21 13:[address]: Mykel Main DEPT: SURGICAL PATHOLOGY RECD BY: Dianelys Kaufman ENTERED: 02/11/21 08:10 SP TYPE: EGD BIOPSY OT DR: Dr. Bernard Grider MD Tissues: Gastric mucous membrane Procedures: Surgery Specimen Level IV HEADER OPERATION: Colonoscopy, EGD ([facility] [place]) PRE-OP DIAGNOSIS: Anal cancer, esophagus polyp TISSUE SUBMITTED: Antral biopsy for H. pylori and path MICROSCOPIC DIAGNOSIS Antral biopsy: Mild gastritis. See microscopic description and comment. SJ:ria 02/14/2021 COMMENT The results of immunohistochemistry for Helicobacter pylori will be reported separately ([id number]). MICROSCOPIC DESCRIPTION Slides are reviewed. The specimen shows fragments of gastric mucosa with chronic inflammatory cell infiltrates in the lamina propria consisting of lymphocytes and plasma cells, consistent with mild chronic gastritis. GROSS DESCRIPTION Received in fixative is one container labeled with the patient's name and designated antral biopsy. The specimen consists of one irregular fragment of light johnson soft tissue that measures 0.5 x 0.3 x 0.1 cm. The specimen is totally submitted in one cassette. / AM:ria 02/11/21 TC:3 CPT: 10049
--- NOTE | 2021-02-10 14:27 | OP.EGD_ITS ---
Patient Name: Inna Vidal Procedure Date: 02/10/2021 1:51 PM Date of : 1950 Age: 70 Procedure: Upper GI endoscopy Indications: esophageal polyp, k22.8 Providers: Mykel Main MD Referring MD: Bernard Grider MD Medicines: See the Anesthesia note for documentation of the administered medications Patient Profile: This is a 70 year old female. Refer to note in patient chart for documentation of history and physical. Complications: No immediate complications. Procedure: Pre-Anesthesia Assessment: - Prior to the procedure, a History and Physical was performed, and patient medications and allergies were reviewed. The patient's tolerance of previous anesthesia was also reviewed. The risks and benefits of the procedure and the sedation options and risks were discussed with the patient. All questions were answered, and informed consent was obtained. Prior Anticoagulants: The patient has taken no previous anticoagulant or antiplatelet agents. ASA Grade Assessment: III - A patient with severe systemic disease. After reviewing the risks and benefits, the patient was deemed in satisfactory condition to undergo the procedure. After obtaining informed consent, the endoscope was passed under direct vision. Throughout the procedure, the patient's blood pressure, pulse, and oxygen saturations were monitored continuously. The gastroscope was introduced through the mouth, and advanced to the second part of duodenum. The upper GI endoscopy was accomplished without difficulty. The patient tolerated the procedure well. Scope In: 2:04:03 PM Scope Out: 2:06:25 PM Total Procedure Duration Time 0 hours 2 minutes 22 seconds Findings: The examined esophagus was normal. Localized minimal inflammation characterized by erythema was found in the prepyloric region of the stomach. Biopsies were taken with a cold forceps for Helicobacter pylori testing. The examined duodenum was normal. No biopsies or other specimens were collected for this exam. A small hiatal hernia was present. No biopsies or other specimens were collected for this exam. Impression: - Normal esophagus. - Gastritis. Biopsied. - Normal examined duodenum. No specimens collected. Recommendation: - Discharge patient to home. - Resume previous diet. - Continue present medications. - Await pathology results. - Repeat upper endoscopy PRN for surveillance. - Return to my office in 1 week. Procedure Code(s): --- Professional --- 49245, Esophagogastroduodenoscopy, flexible, transoral; with biopsy, single or multiple Diagnosis Code(s): --- Professional --- K29.70, Gastritis, unspecified, without bleeding K22.8, Other specified diseases of esophagus CPT copyright 2017 [employer]. All rights reserved. The codes documented in this report are preliminary and upon senior svp review may be revised to meet current compliance requirements. MD Mykel Barth MD 02/10/2021 2:26:19 PM This report has been signed electronically. Number of Addenda: 0 Note Initiated On: 02/10/2021 1:51 PM
--- NOTE | 2021-02-10 14:27 | OP.CCLET_ITS ---
02/10/2021 Bernard Grider MD [address] [address] [place] [address] Re : Upper GI endoscopy procedure for Inna Vidal Dear Dr. Grider This procedure was performed on January. My impressions and recommendations are as follows: Impressions : - Normal esophagus. - Gastritis. Biopsied. - Normal examined duodenum. No specimens collected. Recommendations : - Discharge patient to home. - Resume previous diet. - Continue present medications. - Await pathology results. - Repeat upper endoscopy PRN for surveillance. - Return to my office in 1 week. My findings are described in the full procedure note, which is enclosed. If I can be of further assistance, please feel free to contact me at Doctor phone number(s): , Fax: [phone], Work: . Sincerely, MD Mykel Barth MD 02/10/2021 2:26:19 PM This report has been signed electronically.
[2021-02-10 14:28] VITALS: BP 100/53; BP 113/56; PULSE 83; RESP 16; TEMP 37; O2SAT 96
--- NOTE | 2021-02-10 14:30 | OP.CCLET_ITS ---
02/10/2021 Bernard Grider MD [address] [place] [address] [place] [address] Re : Colonoscopy procedure for Inna Vidal Dear Dr. Grider This procedure was performed on January. My impressions and recommendations are as follows: Impressions : - Firm area remains in anal area. This will need to be bx in the OR. found on digital exam. - Diverticulosis in the sigmoid colon and in the descending colon. - The examination was otherwise normal. - No specimens collected. Recommendations : - Discharge patient to home. - Resume previous diet. - Continue present medications. - Repeat colonoscopy in 1 year for surveillance. - Return to my office in 1 week. My findings are described in the full procedure note, which is enclosed. If I can be of further assistance, please feel free to contact me at Doctor phone number(s): , Fax: [phone], Work: . Sincerely, MD Mykel Barth MD 02/10/2021 2:29:53 PM This report has been signed electronically.
--- NOTE | 2021-02-10 14:30 | OP.COLON_ITS ---
Patient Name: Inna Vidal Procedure Date: 02/10/2021 2:07 PM Date of : 1950 Age: 70 Procedure: Colonoscopy Indications: High risk colon cancer surveillance: Personal history of anal cancer Providers: Mykel Main MD Referring MD: Bernard Grider MD Medicines: See the Anesthesia note for documentation of the administered medications Patient Profile: This is a 70 year old female. Refer to note in patient chart for documentation of history and physical. Last Colonoscopy: 1 year ago. Complications: No immediate complications. Procedure: Pre-Anesthesia Assessment: - Prior to the procedure, a History and Physical was performed, and patient medications and allergies were reviewed. The patient's tolerance of previous anesthesia was also reviewed. The risks and benefits of the procedure and the sedation options and risks were discussed with the patient. All questions were answered, and informed consent was obtained. Prior Anticoagulants: The patient has taken no previous anticoagulant or antiplatelet agents. ASA Grade Assessment: III - A patient with severe systemic disease. After reviewing the risks and benefits, the patient was deemed in satisfactory condition to undergo the procedure. After I obtained informed consent, the scope was passed under direct vision. Throughout the procedure, the patient's blood pressure, pulse, and oxygen saturations were monitored continuously. The adult colonoscope was introduced through the anus and advanced to the cecum, identified by appendiceal orifice and ileocecal valve. The colonoscopy was performed without difficulty. The patient tolerated the procedure well. The quality of the bowel preparation was good. Scope In: 2:09:38 PM Scope Withdrawal Time 0 hours 3 minutes 44 seconds Scope Out: 2:19:50 PM Total Procedure Duration Time 0 hours 10 minutes 12 seconds Findings: The digital exam findings include firm area remains in anal area. This will need to be bx in the OR. Multiple small-mouthed diverticula were found in the sigmoid colon and descending colon. The exam was otherwise without abnormality. Impression: - Firm area remains in anal area. This will need to be bx in the OR. found on digital exam. - Diverticulosis in the sigmoid colon and in the descending colon. - The examination was otherwise normal. - No specimens collected. Recommendation: - Discharge patient to home. - Resume previous diet. - Continue present medications. - Repeat colonoscopy in 1 year for surveillance. - Return to my office in 1 week. Procedure Code(s): --- Professional --- G0105, Colorectal cancer screening; colonoscopy on individual at high risk Diagnosis Code(s): --- Professional --- Z85.048, Personal history of other malignant neoplasm of rectum, rectosigmoid junction, and anus K57.30, Diverticulosis of large intestine without perforation or abscess without bleeding CPT copyright 2017 [employer]. All rights reserved. The codes documented in this report are preliminary and upon optomechanical engineer review may be revised to meet current compliance requirements. MD Mykel Barth MD 02/10/2021 2:29:53 PM This report has been signed electronically. Number of Addenda: 0 Note Initiated On: 02/10/2021 2:07 PM
[2021-02-10 14:33] VITALS: BP 108/59; BP 113/56; PULSE 77; RESP 16; O2SAT 96
[2021-02-10 14:38] VITALS: BP 108/49; BP 113/56; PULSE 71; RESP 16; O2SAT 94
[2021-02-10 14:43] VITALS: BP 111/61; BP 113/56; PULSE 68; RESP 16; TEMP 37.1; O2SAT 95
[2021-02-10 15:25] VITALS: BP 113/56
== END 2021-02-10 15:30 | disposition home or self-care (01) ==
LOC: EN 12:16 → AC 12:16
PROVIDERS: PCP Internal Medicine; Referring Provider Internal Medicine; Visit Provider Surgery
PROC: 0DJD8ZZ Inspection of Lower Intestinal Tract, Via Natural or Artificial Opening Endoscopic (ICD-10-PCS; CPT 45378; principal; 2021-02-10 13:25)
DX: K29.70 Gastritis, unspecified, without bleeding (principal); K22.8 Other specified diseases of esophagus; K44.9 Diaphragmatic hernia without obstruction or gangrene; Z12.11 Encounter for screening for malignant neoplasm of colon; K57.30 Diverticulosis of large intestine without perforation or abscess without bleeding; I10 Essential (primary) hypertension; J44.9 Chronic obstructive pulmonary disease, unspecified; F17.210 Nicotine dependence, cigarettes, uncomplicated; Z79.899 Other long term (current) drug therapy; Z85.048 Personal history of other malignant neoplasm of rectum, rectosigmoid junction, and anus
CPT/HCPCS: 43239; G0105; 87635; 88305; 88342; C9803; J7120; A4216; J2405; U0002

== ENCOUNTER → 2021-10-04 11:57 | Outpatient (CLI) | payer MEDICARE, MEDICAID, SELFPAY ==
[2020-09-27 10:09] VITALS: BMI 21.7
--- NOTE | 2021-10-04 12:03 | BI_ITS ---
MAMMOGRAPHY - BILATERAL SCREENING REASON FOR EXAM: Female, 71 years old. Routine annual screening examination. PERTINENT HISTORY: Non-contributory. Remote left stereotactic breast biopsy. History of prior rectal carcinoma. TECHNIQUE: Digital bilateral breast claudio (3D mammographic acquisition) in the CC and MLO projections. 2-D mediolateral oblique (MLO) and craniocaudad (CC) views of both breasts were obtained. CAD: Full Field Digital Mammography with Computer Added Detection was performed. COMPARISON: Comparison is made with prior study dated 08/20/2020 and 08/19/2019. FINDINGS: Breast Composition: The breasts are heterogeneously dense, which may obscure small masses. There are no dominant masses or suspicious calcifications. A tissue clip marker is once again seen in the upper anterior lateral aspect of the left breast. No other significant abnormalities are identified. There has been no significant change since the prior study. BI/SCRN MAMM (CAD)W/CLAUDIO BILAT IMPRESSION: Stable bilateral screening mammogram. Yearly follow-up mammogram recommended. (A) ASSESSMENT CATEGORY: BIRADS Category 2: Benign. A letter regarding these results will be sent to the patient by the facility within 30 days. Approximately 10% of breast cancers are not detected by mammography. A normal mammogram should not delay biopsy of a clinically suspicious abnormality. [id number] Electronically Signed: Jorge Pollard MD at 13:55 EST , Service support ,
--- NOTE | 2021-10-04 13:08 | CT_ITS ---
STUDY: LOW DOSE CT LUNG CANCER SCREENING REASON FOR EXAM: Female, 71 years old. LUNG CANCER SCREENING. RADIATION DOSAGE (If Supplied By Facility): CTDIvol = ( 2.01 ) mGy, DLP = ( 72.48 ) mGycm TECHNIQUE: No contrast was administered. Low dose technique was utilized (average mAS-38 and kVp 120). 1.25 mm axial source images with a slice interval of 1.25-mm were reconstructed in lung windows. 2.5 mm axial source images with a slice interval of 2.5-mm were reconstructed in lung windows. 5.0 mm axial source images with a slice interval of 5.0-mm were reconstructed in soft tissue windows. Nodule measured using lung windows on PACS and/or independent workstation with automated measurement of minimum and maximum diameter. Nodule measurement reported as average diameter rounded to the nearest whole number. Growth is defined as an increase ins size of greater than 1.5 mm. COMPARISON: Comparison is made with prior study dated 12/09/2019. NODULES: No suspicious nodules are seen. Minimal bibasilar scarring. Emphysema: Hyperinflation. Endobronchial lesion: None Aorta: Atherosclerotic plaque formation of the aortic arch. Coronary arteries: Coronary artery calcification. Other chest and abdominal findings: Degenerative changes of the thoracic vertebrae. CT/Low Dose CT Lung Screening IMPRESSION: Lung-RADS category 2 - Continue annual screening with LDCT in 12 months. IMPORTANT NOTES FOR USE: ACR Lung-RADS Version 1.1 Assessment Categories Release Date: 2018 Category: Coded 0-4 bases on nodule(s) with highest degree of suspicion. Negative screen is defined as categories 1 and 2; a positive screen is defined as categories 3 and 4. Category 3 and 4A nodules that are unchanged on interval CT should be coded as category 2, and individuals returned to screening in 12 months. Category 4X: Category 3 or 4 nodules with additional imaging findings that increase the suspicion of lung cancer, such as spiculation, GGN that doubles in size in 1 year, enlarged lymph notes, etc. Category Modifiers: S (significant finding unrelated to lung cancer) Electronically Signed: Jorge Pollard MD at 13:53 EST , Service support ,
== END ==
PROVIDERS: PCP Internal Medicine; Referring Provider Internal Medicine Hematology & Oncology; Visit Provider Internal Medicine Hematology & Oncology
DX: Z12.31 Encounter for screening mammogram for malignant neoplasm of breast (principal); Z12.2 Encounter for screening for malignant neoplasm of respiratory organs; Z87.891 Personal history of nicotine dependence
CPT/HCPCS: 71271; 77063; 77067

== ENCOUNTER 2021-10-26 10:33 | Outpatient (CLI) | payer MEDICARE, MEDICAID, SELFPAY ==
[2020-09-27 10:09] VITALS: BMI 21.7
[2021-10-26 12:26] LABS: Absolute Lymphocyte Count 0.83 X10^3/uL (0.83-4.51); Absolute Neutrophil Count 3.9 X10^3/uL (2.0-7.7); Basophil# 0.03 X10^3/uL; Basophil% 0.6 % (0-1); Eosinophil# 0.09 X10^3/uL; Eosinophils% 1.7 % (0-5); Hematocrit 42.2 % (37-47); Hemoglobin 13.6 g/dL (12.0-15.0); Lymphocyte # 0.83 X10^3/ul (0.83-4.51); Lymphocyte % 15.4 % (19-41); Mean Corp Hgb Conc 32.2 g/dL (32-36); Mean Corpuscular Hgb 30.5 pg (27.0-32.0); Mean Corpuscular Volume 94.6 fL (81-99); Mean Platelet Vol. 10.9 fl (6.2-12.0); Monocyte% 9.3 % (0-10); NRBC Flagged by Analyzer 0 % (0-5); Neutrophil # 3.92 X10^3/uL (2.7-7.7); Neutrophil % 72.4 % (47-70); Platelet Count 292 K/mm3 (150-450); RBC Distribution Width CV 13.1 % (11.6-14.6); RBC Distribution Width SD 45.3 fl (35.1-43.9); Red Blood Count 4.46 M/mm3 (4.2-5.4); White Blood Count 5.4 K/mm3 (4.4-11.0)
[2021-10-26 12:38] LABS: ALB/GLOB Ratio 1.1 RATIO (0.9-2.4); AST(SGOT) 21 U/L (15-37); Alanine Aminotransfer ALT/SGPT 22 U/L (13-56); Albumin, Serum 3.9 g/dL (3.2-5.0); Alkaline Phosphatase 75 U/L (45-117); Anion Gap 5 (5-15); BUN 12 mg/dL (7-18); Calcium,Total 9.3 mg/dL (8.5-10.1); Chloride 103 mmol/L (98-107); Cholesterol 226 mg/dL (200); Creatinine, Serum 0.86 mg/dL (0.55-1.02); EST Glomerular Filtration Rate 70 mL/min (>60); Est Glom Filt Rate - Afr Amer 84 mL/min (>60); Globulin 3.7 g/dL (2.2-4.2); Glucose 101 mg/dL (74-106); High Density Lipoprotein 78 mg/dL; Potassium 4.2 mmol/L (3.5-5.1); Protein, Total 7.6 g/dL (6.4-8.2); Sodium Level 139 mmol/L (136-145); Triglycerides 178 mg/dL; Very Low Density Lipoprotein 36 mg/dL (5-40)
== END 2021-10-26 23:59 | disposition short-term general hospital (02) ==
LOC: BIMLAB 10:34
PROVIDERS: PCP Internal Medicine; Visit Provider Internal Medicine
DX: I10 Essential (primary) hypertension (principal); E78.5 Hyperlipidemia, unspecified
CPT/HCPCS: 36415; 80053; 80061; 85025

== ENCOUNTER 2021-11-16 11:00 | Outpatient (CLI) | payer MEDICARE, MEDICAID, SELFPAY ==
[2020-09-27 10:09] VITALS: BMI 21.7
--- NOTE | 2021-11-16 11:05 | BD_ITS ---
STUDY: DUAL ENERGY X-RAY ABSORPTIOMETRY / DXA REASON FOR EXAM: Female, 71 years old. Post- menopausal TECHNIQUE: Bone Mineral Density (BMD) measurements of lumbar spine and bilateral hips were obtained. COMPARISON: Comparison is made with prior study dated 07/25/2018. FINDINGS: Lumbar Spine (L1-L4): g/cm2 (1.187) / T-score (1.2) / Z-score (3.4) Findings are suggestive of normal bone density with a low fracture risk. Left Femur Total: g/cm2 (0.876) / T-score (-0.5) / Z-score (1.0) Left Femoral Neck: g/cm2 (0.764) / T-score (-0.8) / Z-score (1.1) Right Femur Total: g/cm2 (0.893) / T-score (-0.4) / Z-score (1.1) Right Femoral Neck: g/cm2 (0.860) / T-score (0.1) / Z-score (1.9) The T-Scores on the most recent prior examination were: Lumbar Spine (L1-L4): There has been worsening of bone density since the previous examination. Left Femur Total: which represents a worsening of 11.5%. Right Femur Total: which represents a worsening of 9.7%. BD/Dexa Bone Density Study IMPRESSION: The patient is considered normal as outlined below according to World Shawn Organization (WHO) criteria with a low fracture risk. There has been worsening of bone density since the previous examination. Reference Information: The T-score is the number of standard deviations above or below the standard which is normal for young adults at their peak bone mineral density. The World Health Organization (WHO) interprets the T-scores as follows: Above -1 Normal bone density Between -1 and -2.5 Osteopenia Equal to / or below -2.5 Osteoporosis As a practical clinical guideline, osteopenia may be graded as follows: Mild -1 through -1.5 Moderate -1.6 through -2.0 Severe -2.1 through -2.4 The Z-score is the number of standard deviations above or below age-matched controls. A Z-score of less than -1.5 would be considered abnormal. References: 1. NIH Osteoporosis and Related Bone Diseases www osteo.org 2. International Society for Clinical Densitometry www iscd.org 3. National Osteoporosis Foundation www nof.org Electronically Signed: Jorge Pollard MD at 15:33 EST ,
== END 2021-11-16 23:59 | disposition short-term general hospital (02) ==
LOC: OPBD 11:01
PROVIDERS: PCP Internal Medicine; Referring Provider Internal Medicine; Visit Provider Internal Medicine
DX: Z13.820 Encounter for screening for osteoporosis (principal); Z78.0 Asymptomatic menopausal state
CPT/HCPCS: 77080

== ENCOUNTER → 2022-02-27 | Outpatient (CLI) | payer MEDICARE, MEDICAID, SELFPAY ==
[2020-09-27 10:09] VITALS: BMI 21.7
--- NOTE | 2022-02-27 14:01 | CT_ITS ---
STUDY: CT PELVIS WITH CONTRAST REASON FOR EXAM: Female, 72 years old. Sacral pain, eval for mets. History of anal cancer. RADIATION DOSAGE (If Supplied By Facility): CTDIvol = ( 25.12 ) mGy, DLP = ( 795.04 ) mGycm TECHNIQUE: Transaxial imaging of the pelvis was performed without oral contrast. IV 100mL Isovue-300 was administered intravenously. Individualized dose optimization techniques were used for this CT. COMPARISON: None. FINDINGS: Cystocele. The patient is status post hysterectomy. Normal visualized small intestine. Diffuse soft tissue thickening of the distal rectum and anus. There is no pelvic fluid. There is no pelvic lymphadenopathy or mass lesion. There is diffuse atherosclerotic calcification of the pelvic arteries. Normal abdominal wall. There is demineralization of the sacrum. No bony destruction is seen. CT/Pelvis WITH IV Contrast IMPRESSION: No evidence of bony destruction. Soft tissue swelling and prominence of the distal rectum extending into the region of the anus. Electronically Signed: Jorge Pollard MD at 15:05 EDT ,
[2022-02-27 14:20] LABS: CREATININE FINGERSTICK 0.6 mg/dL (0.55-1.02); EGFR FINGERSTICK > 60.0000 mL/min (>60)
== END | disposition home or self-care (01) ==
PROVIDERS: PCP Internal Medicine; Referring Provider Student in an Organized Health Care Education/Training Program; Visit Provider Student in an Organized Health Care Education/Training Program
DX: C21.0 Malignant neoplasm of anus, unspecified (principal)
CPT/HCPCS: 72193; Q9967

== ENCOUNTER → 2022-06-02 | Outpatient (CLI) | payer MEDICARE, MEDICAID, SELFPAY ==
[2020-09-27 10:09] VITALS: BMI 21.7
--- NOTE | 2022-06-02 10:02 | RAD_ITS ---
STUDY: X-RAY - PELVIS AND LEFT HIP REASON FOR EXAM: Female, 72 years old. Pain. TECHNIQUE: 3 views of the pelvis and hip. COMPARISON: None. FINDINGS: There is a non-specific bowel gas pattern. Phleboliths. Osteopenia. Mild arthrosis of the sacroiliac joints. Mild arthrosis of the symphysis pubis. Mild arthrosis of both hips. RAD/HIP, UNI W/ Pelvis 2-3 Views IMPRESSION: Osteopenia with osteoarthritic changes as described. No acute abnormality or erosive changes or fusion. Electronically Signed: Jamar Shay, at 10:38 EDT ,
== END | disposition home or self-care (01) ==
LOC: RAD 09:59
PROVIDERS: PCP Internal Medicine; Referring Provider Internal Medicine Hematology & Oncology; Visit Provider Internal Medicine Hematology & Oncology
DX: M53.3 Sacrococcygeal disorders, not elsewhere classified (principal)
CPT/HCPCS: 73502

== ENCOUNTER → 2022-12-08 | Outpatient (CLI) | payer MEDICARE, MEDICAID, SELFPAY ==
[2020-09-27 10:09] VITALS: BMI 21.7
--- NOTE | 2022-12-08 10:30 | BI_ITS ---
MAMMOGRAPHY - BILATERAL SCREENING REASON FOR EXAM: Female, 72 years old. Routine annual screening examination. PERTINENT HISTORY: Non-contributory. Prior left stereotactic breast biopsy. TECHNIQUE: Digital bilateral breast claudio (3D mammographic acquisition) in the CC and MLO projections. 2-D mediolateral oblique (MLO) and craniocaudad (CC) views of both breasts were obtained. CAD: Full Field Digital Mammography with Computer Added Detection was performed. COMPARISON: Comparison is made with prior study dated 10/04/2021 and 08/20/2020. FINDINGS: Breast Composition: The breasts are heterogeneously dense, which may obscure small masses. There are no dominant masses or suspicious calcifications. A tissue clip marker is once again seen in the upper anterior lateral aspect of the left breast. No other significant abnormalities are identified. There has been no significant change since the prior study. BI/SCRN MAMM (CAD)W/CLAUDIO BILAT IMPRESSION: Stable bilateral screening mammogram. Yearly follow-up mammogram recommended. (A) ASSESSMENT CATEGORY: BIRADS Category 2: Benign. A letter regarding these results will be sent to the patient by the facility within 30 days. Approximately 10% of breast cancers are not detected by mammography. A normal mammogram should not delay biopsy of a clinically suspicious abnormality. [id number] Electronically Signed: Jorge Pollard MD at 11:17 EST ,
== END | disposition home or self-care (01) ==
LOC: OPBI 10:29
PROVIDERS: PCP Internal Medicine; Visit Provider Internal Medicine Hematology & Oncology
DX: Z12.31 Encounter for screening mammogram for malignant neoplasm of breast (principal)
CPT/HCPCS: 77063; 77067

== ENCOUNTER → 2022-12-18 | Outpatient (CLI) | payer MEDICARE, MEDICAID, SELFPAY ==
[2020-09-27 10:09] VITALS: BMI 21.7
[2022-12-18 12:06] LABS: Absolute Lymphocyte Count 0.92 X10^3/uL (0.83-4.51); Absolute Neutrophil Count 3.8 X10^3/uL (2.0-7.7); Basophil# 0.04 X10^3/uL; Basophil% 0.7 % (0-1); Eosinophil# 0.11 X10^3/uL; Hematocrit 42.1 % (37-47); Hemoglobin 13.2 g/dL (12.0-15.0); Lymphocyte # 0.92 X10^3/ul (0.83-4.51); Lymphocyte % 16.9 % (19-41); Mean Corp Hgb Conc 31.4 g/dL (32-36); Mean Corpuscular Hgb 29.9 pg (27.0-32.0); Mean Corpuscular Volume 95.2 fL (81-99); Mean Platelet Vol. 11.3 fl (6.2-12.0); Monocyte% 9.2 % (0-10); NRBC Flagged by Analyzer 0 % (0-5); Neutrophil # 3.84 X10^3/uL (2.7-7.7); Neutrophil % 70.8 % (47-70); Platelet Count 228 K/mm3 (150-450); RBC Distribution Width CV 13.3 % (11.6-14.6); RBC Distribution Width SD 47.5 fl (35.1-43.9); Red Blood Count 4.42 M/mm3 (4.2-5.4); White Blood Count 5.4 K/mm3 (4.4-11.0)
[2022-12-18 12:30] LABS: ALB/GLOB Ratio 1.1 RATIO (0.9-2.4); AST(SGOT) 16 U/L (15-37); Alanine Aminotransfer ALT/SGPT 18 U/L (13-56); Alkaline Phosphatase 75 U/L (45-117); Anion Gap 4 (5-15); BUN 13 mg/dL (7-18); Calcium,Total 9.1 mg/dL (8.5-10.1); Chloride 105 mmol/L (98-107); Cholesterol 250 mg/dL (200); Creatinine, Serum 0.81 mg/dL (0.55-1.02); EST Glomerular Filtration Rate 74 mL/min (>60); Est Glom Filt Rate - Afr Amer 89 mL/min (>60); Globulin 3.5 g/dL (2.2-4.2); Glucose 90 mg/dL (74-106); High Density Lipoprotein 69 mg/dL; Potassium 4.5 mmol/L (3.5-5.1); Protein, Total 7.5 g/dL (6.4-8.2); Sodium Level 138 mmol/L (136-145); T4 Free Direct 0.98 ng/dL (0.76-1.46); Thyroid Stim Hormone (TSH) 1.77 uIU/mL (0.358-3.74); Triglycerides 183 mg/dL; Very Low Density Lipoprotein 37 mg/dL (5-40)
== END | disposition home or self-care (01) ==
LOC: BIMLAB 10:29
PROVIDERS: PCP Internal Medicine; Visit Provider Internal Medicine
DX: I10 Essential (primary) hypertension (principal); E78.5 Hyperlipidemia, unspecified
CPT/HCPCS: 36415; 80053; 80061; 84439; 84443; 85025

== ENCOUNTER → 2023-01-23 | Outpatient (CLI) | payer MEDICARE, MEDICAID, SELFPAY ==
[2020-09-27 10:09] VITALS: BMI 21.7
--- NOTE | 2023-01-23 13:08 | CT_ITS ---
STUDY: LOW DOSE CT LUNG CANCER SCREENING REASON FOR EXAM: Female, 72 years old. Lung cancer screening -- and gt;20 pk yr hx;asymptomatic; RADIATION DOSAGE (If Supplied By Facility): CTDIvol = ( 2.01 ) mGy, DLP = ( 72.23 ) mGycm TECHNIQUE: No contrast was administered. Low dose technique was utilized (average mAS-38 and kVp 120). 1.25 mm axial source images with a slice interval of 1.25-mm were reconstructed in lung windows. 2.5 mm axial source images with a slice interval of 2.5-mm were reconstructed in lung windows. 5.0 mm axial source images with a slice interval of 5.0-mm were reconstructed in soft tissue windows. COMPARISON: Comparison is made with prior study dated October 04, 2021. NODULES: No suspicious nodules are seen. Emphysema: Mild degree of emphysematous changes. Endobronchial lesion: None Aorta: Atherosclerotic plaque formation of the aortic arch. CORONARY ARTERIES: Coronary artery calcification is not seen. Heart: Unremarkable. Pulmonary artery: Unremarkable. Mediastinal nodes: Unremarkable. Other chest and abdominal findings: CT/Low Dose CT Lung Screening IMPRESSION: Lung-RADS category 2 - Continue annual screening with LDCT in 12 months. IMPORTANT NOTES FOR USE: ACR Lung-RADS Version 1.1 Assessment Categories Release Date: 2018 Category: Coded 0-4 bases on nodule(s) with highest degree of suspicion. Negative screen is defined as categories 1 and 2; a positive screen is defined as categories 3 and 4. Category 3 and 4A nodules that are unchanged on interval CT should be coded as category 2, and individuals returned to screening in 12 months. Category 4X: Category 3 or 4 nodules with additional imaging findings that increase the suspicion of lung cancer, such as spiculation, GGN that doubles in size in 1 year, enlarged lymph notes, etc. Category Modifiers: S (significant finding unrelated to lung cancer) Electronically Signed: Jorge Pollard MD at 13:53 EDT ,
== END | disposition home or self-care (01) ==
LOC: CT 13:06
PROVIDERS: PCP Internal Medicine; Referring Provider Nurse Practitioner Family; Visit Provider Nurse Practitioner Family
DX: Z12.2 Encounter for screening for malignant neoplasm of respiratory organs (principal); Z87.891 Personal history of nicotine dependence
CPT/HCPCS: 71271

== ENCOUNTER → 2023-09-27 | Outpatient (CLI) | payer MEDICARE, MEDICAID, SELFPAY ==
[2020-09-27 10:09] VITALS: BMI 21.7
--- NOTE | 2023-09-27 14:06 | CT_ITS ---
INDICATION: F/U ANAL CANCER EXAMINATION: CT Chest Abdomen And Pelvis W/ Contrast Injection TECHNIQUE: Images were obtained of the chest, abdomen and pelvis following IV contrast. A radiation dose optimization technique was used for this scan. IV Contrast dosage and agent: IV 100mL Isovue-370 COMPARISON: PET/CT 11/23/2021. FINDINGS: Lungs: Unremarkable Mediastinum: The cardiomediastinal silhouette is not enlarged. No mediastinal, hilar or axillary adenopathy. Moderate aortic arch and coronary artery calcifications. No obvious filling defect seen within the visualized pulmonary arteries. Pleura: Unremarkable Liver: Unremarkable Gallbladder: Unremarkable Spleen: Unremarkable Pancreas: Unremarkable Adrenal Glands: Unremarkable Kidneys: Unremarkable Vasculature: Moderate aortoiliac atherosclerotic disease. GI Tract: Redemonstration of irregular masslike thickening of the left posterolateral low rectum/anus measuring approximately 3.2 x 1.9 cm. This is difficult to compared to most recent prior PET/CT on 11/23/2021 but is grossly stable in appearance and size. Lymphadenopathy: None Peritoneum: No ascites. Bladder: Unremarkable Reproductive organs: Unremarkable Bones/Soft tissues: There are diffuse degenerative changes of the spine. Multilevel spondylolisthesis of the lumbar spine. CT/CT Chest, Abd, Pel w/Contrast IMPRESSION: Stable disease with grossly stable appearance and size of known anal squamous cell carcinoma and no new evidence of metastatic disease or lymphadenopathy. Electronically Signed: Eric Howard MD at 22:41 EST ,
[2023-09-27 14:42] LABS: CREATININE FINGERSTICK < 1.0 mg/dL (0.55-1.02); EGFR FINGERSTICK > 60.0000 mL/min (>60)
== END | disposition home or self-care (01) ==
LOC: CT 14:04
PROVIDERS: PCP Internal Medicine; Referring Provider Internal Medicine Hematology & Oncology; Visit Provider Internal Medicine Hematology & Oncology
DX: C21.0 Malignant neoplasm of anus, unspecified (principal)
CPT/HCPCS: 71260; 74177; Q9967; A4216

== ENCOUNTER → 2023-11-29 | Outpatient (CLI) | payer MEDICARE, MEDICAID, SELFPAY ==
[2020-09-27 10:09] VITALS: BMI 21.7
[2023-11-29 15:04] LABS: Absolute Lymphocyte Count 0.87 X10^3/uL (0.83-4.51); Absolute Neutrophil Count 4.7 X10^3/uL (2.0-7.7); Basophil# 0.03 X10^3/uL; Basophil% 0.5 % (0-1); Eosinophil# 0.05 X10^3/uL; Eosinophils% 0.8 % (0-5); Hematocrit 39.4 % (37-47); Hemoglobin 12.9 g/dL (12.0-15.0); Lymphocyte # 0.87 X10^3/ul (0.83-4.51); Mean Corp Hgb Conc 32.7 g/dL (32-36); Mean Corpuscular Hgb 30.4 pg (27.0-32.0); Mean Corpuscular Volume 92.9 fL (81-99); Mean Platelet Vol. 11.2 fl (6.2-12.0); Monocyte# 0.58 X10^3/uL; Monocyte% 9.3 % (0-10); NRBC Flagged by Analyzer 0 % (0-5); Neutrophil # 4.68 X10^3/uL (2.7-7.7); Neutrophil % 75.1 % (47-70); Platelet Count 258 K/mm3 (150-450); RBC Distribution Width CV 13.2 % (11.6-14.6); RBC Distribution Width SD 44.9 fl (35.1-43.9); Red Blood Count 4.24 M/mm3 (4.2-5.4); White Blood Count 6.2 K/mm3 (4.4-11.0)
[2023-11-29 15:32] LABS: ALB/GLOB Ratio 1.2 RATIO (0.9-2.4); AST(SGOT) 15 U/L (15-37); Alanine Aminotransfer ALT/SGPT 19 U/L (13-56); Alkaline Phosphatase 72 U/L (45-117); Anion Gap 6 (5-15); BUN 16 mg/dL (7-18); BUN/Creat Ratio 19.9 RATIO (10-20); Chloride 106 mmol/L (98-107); Cholesterol 225 mg/dL (200); EST Glomerular Filtration Rate 74 mL/min (>60); Est Glom Filt Rate - Afr Amer 90 mL/min (>60); Globulin 3.2 g/dL (2.2-4.2); Glucose 102 mg/dL (74-106); High Density Lipoprotein 68 mg/dL; Potassium 3.9 mmol/L (3.5-5.1); Protein, Total 7.2 g/dL (6.4-8.2); Sodium Level 141 mmol/L (136-145); Triglycerides 259 mg/dL; Very Low Density Lipoprotein 52 mg/dL (5-40)
--- OUTSIDE RECORDS SUMMARY | 2023-11-29 16:04 | XMS RPT_ITS | CCD ---
Author Name Unknown Address [id number] [place] [address] Organization [facility] Care Team Providers Care Application Integration Architect Name Role Phone Cornelius Moris PEPE Unavailable Unavailable Mary Alvarenga Unavailable Unavailable Bernard Grider MD Unavailable Bernard Grider MD Unavailable Bernard Grider MD Unavailable Mary Alvarenga Unavailable Unavailable Mary Alvarenga Unavailable Unavailable Bernard Grider MD Primary Care Provider Allergies Allergy Classification Reported Allergen(s) Allergy Type Date of Onset Reaction(s) Facility (5 sources) CHOLESTEROL MEDICINE, UNURE WHICH drug allergy 06-08-2017 Yeso like she was having a heart attack [facility] Work Phone: (4 sources) Simvastatin Drug Allergy 08-19-[address] [facility] Work Phone: Medications Current Medications Medication Drug Class(es) Dates Sig (Normalized) Sig (Original) polyethylene glycol [id number] [id number] mg / potassium chloride 2970 mg / sodium bicarbonate 6740 mg / sodium chloride 5860 mg / sodium sulfate 45031 mg powder for oral solution (1 source) Osmotic Laxative Start: 03-24-2022 End: 03-24-2022 peg 3350-Electrolytes (GOLYTELY) 236-22.74-6.74 -5.86 gram suspension Take 4,000 mL by mouth one time only for 1 dose. 1 Each 0 03/24/2022 03/24/2022 Active Completed/Discontinued Medications Medication Drug Class(es) Dates Sig (Normalized) Sig (Original) acetaminophen 325 mg / HYDROcodone bitartrate 5 mg oral tablet (10 sources) Opioid Agonist Start: 04-27-2017 HYDROCODONE-ACETAMI NOPHEN 5-325 MG TABS 1 tablet [id number] HYDROCODONE-ACETAMI NOPHEN [id number] Bernard Grider MD acetaminophen 325 mg / oxyCODONE hydrochloride 5 mg oral tablet (20 sources) Opioid Agonist Start: 12-23-2020 oxyCODONE-acetamino phen (PERCOCET) 5-325 mg tablet TAKE 1 TABLET TWICE DAILY for 7 days, as needed. 0 12/23/2020 Active Problems Active Problems Problem Classification Problem Date Documented Da te Episodic/Chronic Asthma (10 sources) Asthma; Translations: [Unspecified asthma, uncomplicated] 07-10-2014 Chronic Cancer of rectum and anus (1 source) Malignant tumor of anus; Translations: [Malignant neoplasm of anus, unspecified] Chronic Cancer of rectum and anus (2 sources) History of malignant neoplasm of anus; Translations: [Personal history of other malignant neoplasm of rectum, rectosigmoid junction, and anus] Episodic Chronic obstructive pulmonary disease and bronchiectasis (10 sources) Chronic obstructive lung disease; Translations: [Chronic obstructive pulmonary disease, unspecified] 07-10-2014 Chronic Diverticulosis and diverticulitis (4 sources) Diverticulosis of colon; Translations: [Diverticulosis of large intestine without perforation or abscess without bleeding] Onset: 9 09-23-2009 Chronic Esophageal disorders (10 sources) Gastroesophageal reflux disease; Translations: [Gastro-esophageal reflux disease without esophagitis] 07-10-2014 Chronic Esophageal disorders (2 sources) Polyp of esophagus; Translations: [Esophageal polyp] Episodic Essential hypertension (20 sources) Hypertensive episode; Translations: [Hypertensive disorder] Onset: 7 06-05-2017 Chronic Osteoarthritis (10 sources) Degenerative joint disease involving multiple joints; Translations: [Polyosteoarthritis, unspecified] Onset: 7 04-27-2017 Chronic Other gastrointestinal disorders (3 sources) Dysphagia; Translations: [Dysphagia, unspecified] Episodic Other non-epithelial cancer of skin (2 sources) Malignant neoplasm of gastrointestinal tract; Translations: [Squamous cell carcinoma of anal skin] Episodic Other screening for suspected conditions (not mental disorders or infectious disease) (1 source) Imaging of gastrointestinal tract abnormal; Translations: [Abnormal findings on diagnostic imaging of other parts of digestive tract] Episodic Substance-related disorders (10 sources) Tobacco dependence syndrome; Translations: [Nicotine dependence, unspecified, uncomplicated] Onset: 4 10-18-2014 Chronic Unclassified (4 sources) Preoperative pulmonary examination ; Translations: [Encounter for preprocedural respiratory examination] Onset: 7 06-05-2017 Unclassified (4 sources) Preoperative cardiovascular examination ; Translations: [Encounter for preprocedural cardiovascular examination] Onset: 7 06-05-2017 Unclassified (3 sources) Pre-surgery evaluation ; Translations: [Encounter for other preprocedural examination] Onset: 7 06-08-2017 Unclassified (6 sources) Screening - health check; Translations: [Encounter for general adult medical examination without abnormal findings] Onset: 7 04-27-2017 Unclassified (2 sources) Procedure needed; Translations: [Encounter for immunization] Onset: 7 08-02-2017 Past or Other Problems Problem Classification Problem Date Documented Da te Episodic/Chronic Gastrointestinal hemorrhage (4 sources) Hemorrhage of rectum and anus; Translations: [Hemorrhage of anus and rectum] Onset: 08-19-2007 08-19-2007 Episodic Medical examination/evaluation (4 sources) Encounter for general adult medical examination without abnormal findings; Translations: [Encounter for general adult medical examination without abnormal findings] Onset: 04-27-2017 04-27-2017 Episodic Neoplasms of unspecified nature or uncertain behavior (20 sources) Neoplasm of unspecified behavior of bone, soft tissue, and skin; Translations: [Neoplasm of unspecified behavior of bone, soft tissue, and skin] Onset: 10-13-2014 10-18-2014 Episodic Other aftercare (10 sources) Encounter for other specified surgical aftercare; Translations: [Encounter for other specified surgical aftercare] Onset: 11-05-2014 11-10-2014 Episodic Other and unspecified benign neoplasm (20 sources) Benign neoplasm of skin of other and unspecified parts of face; Translations: [Benign neoplasm of skin of other and unspecified parts of face] Onset: 11-05-2014 11-17-2014 Episodic Other and unspecified benign neoplasm (5 sources) History of polyp of colon; Translations: [Personal history of colonic polyps] Onset: 07-13-2009 Episodic Other and unspecified benign neoplasm (4 sources) Benign neoplasm of colon; Translations: [Benign neoplasm of colon, unspecified] Onset: 09-19-2007 09-19-2007 Episodic Other circulatory disease (4 sources) Elevated blood-pressure reading without diagnosis of hypertension; Translations: [Elevated blood-pressure reading, without diagnosis of hypertension] Onset: 08-13-2017 08-13-2017 Episodic Other skin disorders (10 sources) Actinic keratosis; Translations: [Actinic keratosis] Onset: 11-05-2014 11-10-2014 Episodic Results Test Name Value Interpretation Reference Range Facil ity Vital Signs Date Time Vital Sign Value Performing Clinician Facility 04-13-2022 12:19-0400 Diastolic blood pressure 61 mm[Hg] Mykel Main MD Work Phone: [facility] 04-13-2022 12:19-0400 Respiratory rate 16 /min Mykel Main MD Work Phone: [facility] 04-13-2022 12:19-0400 Systolic blood pressure 131 mm[Hg] Mykel Main MD Work Phone: [facility] 04-13-2022 12:09-0400 Heart rate 65 /min Mykel Main MD Work Phone: [facility] 04-13-2022 12:09-0400 SaO2% (BldA) [Mass fraction] 98 % Mykel Main MD Work Phone: [facility] 04-13-2022 11:00-0400 Body temperature 97.2 [degF] Mykel Main MD Work Phone: [facility] 04-13-2022 11:00-0400 Body weight 52.2 kg Mykel Main MD Work Phone: [facility] 03-13-2022 09:36-0400 Body height 162.6 cm Haydee Roberts PA-C Work Phone: [facility] 03-13-2022 09:36-0400 Body temperature 97.9 [degF] Haydee Roberts PA-C Work Phone: [facility] 03-13-2022 09:36-0400 Body weight 52.16 kg Haydee Brimson PA-C Work Phone: [facility] 03-13-2022 09:36-0400 Diastolic blood pressure 78 mm[Hg] Haydee Alejandra PA-C Work Phone: [facility] 03-13-2022 09:36-0400 Heart rate 88 /min Haydee Brimson PA-C Work Phone: [facility] 03-13-2022 09:36-0400 SaO2% (BldA) [Mass fraction] 97 % Haydee Brimson PA-C Work Phone: [facility] 03-13-2022 09:36-0400 Systolic blood pressure 142 mm[Hg] Haydee Brimson PA-C Work Phone: [facility] 08-02-2017 14:08-0400 BMI (Body Mass Index) 24.11 kg/m2 Moris Cornelius FIELD INSTALLATION TECHNICIAN-C [facility] Work Phone: 08-02-2017 14:08-0400 Body Temperature 96.4 [degF] Moris Cornelius FIELD INSTALLATION TECHNICIAN-C [facility] Work Phone: 08-02-2017 14:08-0400 BP Diastolic 109 mm[Hg] Moris Cornelius FIELD INSTALLATION TECHNICIAN-C [facility] Work Phone: 08-02-2017 14:08-0400 BP Diastolic 110 mm[Hg] Moris Cornelius FIELD INSTALLATION TECHNICIAN-C [facility] Work Phone: 08-02-2017 14:08-0400 BP Systolic 208 mm[Hg] Moris Cornelius FIELD INSTALLATION TECHNICIAN-C [facility] Work Phone: 08-02-2017 14:08-0400 BP Systolic 200 mm[Hg] Moris Cornelius FIELD INSTALLATION TECHNICIAN-C [facility] Work Phone: 08-02-2017 14:08-0400 Height 165.74 cm Moris Cornelius FIELD INSTALLATION TECHNICIAN-C [facility] Work Phone: 08-02-2017 14:08-0400 Pulse (Heart Rate) 79 /min Moris Cornelius FIELD INSTALLATION TECHNICIAN-C [facility] Work Phone: 08-02-2017 14:08-0400 Respiratory Rate 18 /min Moris Cornelius FIELD INSTALLATION TECHNICIAN-C [facility] Work Phone: 08-02-2017 14:08-0400 Weight 66.23 kg Moris Cornelius FIELD INSTALLATION TECHNICIAN-C [facility] Work Phone: 06-08-2017 14:00-0400 BMI (Body Mass Index) 24.44 kg/m2 Mary Marthey [facility] Work Phone: 06-08-2017 14:00-0400 Body Temperature 98.2 [degF] Mary [facility]hey [facility] Work Phone: 06-08-2017 14:00-0400 BP Diastolic 82 mm[Hg] Mary Marthey [facility] Work Phone: 06-08-2017 14:00-0400 BP Diastolic 84 mm[Hg] Mary Marthey [facility] Work Phone: 06-08-2017 14:00-0400 BP Systolic 189 mm[Hg] Mary Marthey [facility] Work Phone: 06-08-2017 14:00-0400 BP Systolic 207 mm[Hg] Mary Marthey [facility] Work Phone: 06-08-2017 14:00-0400 BP Systolic 205 mm[Hg] Mary Marthey [facility] Work Phone: 06-08-2017 14:00-0400 Height 165.74 cm Mary Marthey [facility] Work Phone: 06-08-2017 14:00-0400 Pulse (Heart Rate) 68 /min Mary Marthey [facility] Work Phone: 06-08-2017 14:00-0400 Weight 67.13 kg [facility] Work Phone: 04-27-2017 10:36-0400 BMI (Body Mass Index) 23.45 kg/m2 Bernard Grider MD [facility] 04-27-2017 10:36-0400 BP Diastolic 88 mm[Hg] Bernard Grider MD [facility] 04-27-2017 10:36-0400 BP Systolic 186 mm[Hg] Bernard Grider MD [facility] 04-27-2017 10:36-0400 Weight 64.41 kg Bernard Grider MD [facility] 11-13-2014 13:11-0500 Body Temperature 98.6 [degF] Bernard Grider MD [facility] 11-13-2014 13:11-0500 BSA (Body Surface Area) 1.72 m2 Bernard Grider MD [facility] 11-13-2014 13:11-0500 Pulse (Heart Rate) 69 /min Bernard Grider MD [facility] 11-13-2014 13:11-0500 Respiratory Rate 20 /min Bernard Grider MD [facility] 10-13-2014 11:22-0500 Height 165.74 cm Bernard Grider MD [facility] Encounters Encounter Date Encounter Type Care Provider Facility Start: 04-19-2022 Telephone encounter Haydee kiran PA-C Work Phone: General Surgery Procedures Date Procedure Procedure Detail Performing Clinician Start: 04-13-2022 Esophagogastroduodenoscopy transoral diagnostic Mykel Main MD Work Phone: Start: 04-13-2022 Colon ca scrn not hi rsk ind Mykel samayoa MD Work Phone: Start: 04-13-2022 Colonoscopy Mykel Main MD Work Phone: Start: 02-10-2021 Colonoscopy Haydee Roberts PA-C Work Phone: Start: 06-08-2017 Pre-surgery evaluation Preop exam Moris Cornelius FIELD INSTALLATION TECHNICIAN-C Start: 06-08-2017 Pre-surgery evaluation Preop exam Mary Marthey Start: 06-05-2017 End: 06-06-2017 Chest x-ray 4/> views Bernard Grider MD Work Phone: Start: 06-05-2017 End: 06-06-2017 Electrocardiogram Bernard Grider MD Work Phone: Start: 06-05-2017 Preoperative cardiovascular examination Preoperative cardiovascular Moris Cornelius FIELD INSTALLATION TECHNICIAN-C Start: 06-05-2017 Preoperative pulmonary examination Preoperative pulmon jonatan evaluation Moris Cornelius FIELD INSTALLATION TECHNICIAN-C Start: 06-05-2017 End: 06-06-2017 Chest x-ray 4/> views Bernard Grider MD Work Phone: Start: 06-05-2017 End: 06-06-2017 Electrocardiogram Bernard Grider MD Work Phone: Start: 06-05-2017 Preoperative cardiovascular examination Preoperative cardiovascular Mary Marthey Start: 06-05-2017 Preoperative pulmonary examination Preoperative pulmon jonatan evaluation Mary Marthey Start: 04-27-2017 End: 05-07-2017 *CMP Complete Metabolic Panel Bernard Grider MD Work Phone: Start: 04-27-2017 End: 05-07-2017 CBC W Auto Differential panel - Blood Bernard Grider MD Work Phone: Start: 04-27-2017 End: 05-07-2017 Follow Up Appt 3 months Bernard Grider MD Work Phone: Start: 04-27-2017 End: 05-07-2017 Lipid 1996 panel - Serum or Plasma Elvi Grider MD Work Phone: Start: 04-27-2017 End: 05-07-2017 Mammogram, screening Bernard Grider MD Work Phone: Start: 04-27-2017 End: 05-07-2017 *CMP Complete Metabolic Panel Bernard Grider MD Work Phone: Start: 04-27-2017 End: 05-07-2017 CBC W Auto Differential panel - Blood Bernard Grider MD Work Phone: Start: 04-27-2017 End: 05-07-2017 Follow Up Appt 3 months Bernard Grider MD Work Phone: Start: 04-27-2017 End: 05-07-2017 Lipid panel [AGGREGATE] Bernard Grider MD Work Phone: Start: 04-27-2017 End: 05-07-2017 Mammogram, screening Bernard Grider MD Work Phone: Start: 11-13-2014 End: 11-17-2014 Follow Up Appt 2 weeks Glenn Cameron MD Start: 11-13-2014 End: 11-17-2014 Follow Up Appt 2 weeks Glenn Cameron MD Start: 10-13-2014 End: 11-02-2014 Follow Up Appt Other Glenn Cameron MD Start: 10-13-2014 End: 11-02-2014 Follow Up Appt Other Glenn Cameron MD Start: 11-14-2012 Mammography Haydee Roberts PA-C Work Phone: Plan of Treatment Date Care Activity Detail Author Start: 04-13-[address] [facility] Start: 04-13-2027 COLORECTAL CANCER SCREENING COLORECTAL CANCER SCREENING [facility] Start: 02-10-[address] [facility] Start: 02-10-2026 COLORECTAL CANCER SCREENING COLORECTAL CANCER SCREENING [facility] Start: 04-13-[address] [facility] Start: 04-13-2025 COLORECTAL CANCER SCREENING COLORECTAL CANCER SCREENING [facility] Start: 06-22-2022 Influenza vaccination INFLUENZA (Season Ended) [facility] Start: 05-07-2022 LIPID SCREEN LIPID SCREEN [facility] Start: 02-04-2022 COVID-19 VACCINE (4 - Booster for Pfizer series) COVID-19 VACCINE (4 - Booster for Pfizer series) [facility] Start: 10-22-2021 ADVANCE DIRECTIVE DISCUSSION ADVANCE DIRECTIVE DISCUSSION [facility] Start: 08-02-2017 End: 08-02-2017 Appointment Appointment [facility] Work Phone: Start: 08-02-2017 End: 08-02-2017 Follow Up Appt 2 weeks Follow Up Appt 2 weeks [facility] Work Phone: Start: 06-08-2017 End: 06-08-2017 Appointment Appointment [facility] Work Phone: Start: 06-08-2017 End: 06-08-2017 Follow Up Appt 1 month Follow Up Appt 1 month [facility] Work Phone: Start: 06-08-2017 End: 06-08-2017 Follow Up Appt 1 month Follow Up Appt 1 month [facility] Work Phone: Start: 06-05-2017 End: 06-06-2017 *EKG (Done in Hospital) *EKG (Done in Hospital) [facility] Work Phone: Start: 06-05-2017 End: 06-06-2017 Chest x-ray 4/> views Chest XRAY [facility] Work Phone: Start: 06-05-2017 End: 06-06-2017 *EKG (Done in Hospital) *EKG (Done in Hospital) [facility] Work Phone: Start: 06-05-2017 End: 06-06-2017 Chest x-ray 4/> views Chest XRAY [facility] Work Phone: Start: 04-27-2017 End: 05-07-2017 *CMP Complete Metabolic Panel *CMP Complete Metabolic Panel [facility] Work Phone: Start: 04-27-2017 End: 05-07-2017 CBC W Auto Differential panel - Blood *CBC without Diff [facility] Work Phone: Start: 04-27-2017 End: 05-07-2017 Follow Up Appt 3 months Follow Up Appt 3 months [facility] Work Phone: Start: 04-27-2017 End: 05-07-2017 Lipid panel [AGGREGATE] *Lipid Profile [facility] Work Phone: Start: 04-27-2017 End: 05-07-2017 Mammogram, screening Mammogram, Screening, both breasts [facility] Work Phone: Start: 04-27-2017 End: 04-27-2017 Appointment Appointment [facility] Start: 04-27-2017 End: 05-07-2017 *CMP Complete Metabolic Panel *CMP Complete Metabolic Panel [facility] Start: 04-27-2017 End: 05-07-2017 CBC W Auto Differential panel - Blood *CBC without Diff [facility] Start: 04-27-2017 End: 05-07-2017 Follow Up Appt 3 months Follow Up Appt [address] [facility] Start: 04-27-2017 End: 05-07-2017 Lipid panel [AGGREGATE] *Lipid Profile [facility] Start: 04-27-2017 End: 05-07-2017 Mammogram, screening Mammogram, Screening, both breasts [facility] Start: 02-27-2016 BONE DENSITY BONE DENSITY [facility] Start: 11-13-2014 End: 11-17-2014 Follow Up Appt 2 weeks Follow Up Appt 2 weeks [facility] Work Phone: Start: 11-13-2014 End: 11-17-2014 Follow Up Appt 2 weeks Follow Up Appt 2 weeks [facility] Start: 10-13-2014 End: 11-02-2014 Follow Up Appt Other Follow Up Appt Other [facility] Work Phone: Start: 10-13-2014 End: 11-02-2014 Follow Up Appt Other Follow Up Appt Other [facility] Start: 11-14-[address] [facility] Start: 2001 Influenza vaccination LUNG CANCER SCREENING [facility] Start: 2001 SHINGRIX VACCINE (1 of 2) SHINGRIX VACCINE (1 of 2) [facility] Start: 02-27-1996 COLOGUARD (FIT-DNA) COLOGUARD (FIT-DNA) [facility] Start: 02-27-[address] COLONOGRAPHY [facility] Start: 02-27-1996 DIABETES SCREEN DIABETES SCREEN [facility] Start: 02-27-1996 FECAL OCCULT BLOOD FECAL OCCULT BLOOD [facility] Start: 02-27-1996 LIPID SCREEN LIPID SCREEN [facility] Start: 02-27-[address] [facility] Start: 1970 SHINGRIX VACCINE (1 of 2) SHINGRIX VACCINE (1 of 2) [facility] Start: 1970 Urine microalbumin profile DTAP,TDAP,TD (1 - Tdap) [facility] Start: 1969 HEPATITIS C SCREENING HEPATITIS C SCREENING [facility] Start: 1963 Adult depression screening assessment DEPRESSION SCREENING [facility] Start: 1957 PNEUMOCOCCAL: 65+ (1 - PCV) PNEUMOCOCCAL: 65+ (1 - PCV) [facility] End: 03-24-2023 EGD DIAGNOSTIC EGD DIAGNOSTIC Endoscopy Routine Dysphagia, unspecified type Esophageal polyp 1 Occurrences starting 03/24/2022 until 03/24/2023 [facility] Work Phone: Immunizations Immunization Date Immunization Notes Care Provider Fa juan antonio 08-02-2017 pneumococcal polysaccharide vaccine, 23 valent Moris Cornelius FIELD INSTALLATION TECHNICIAN-C [facility] Work Phone: 08-02-2017 Seasonal trivalent influenza vaccine, adjuvanted, preservative free Moris Cornelius FIELD INSTALLATION TECHNICIAN-C [facility] Work Phone: 08-02-2017 [id number] Moris Cornelius FIELD INSTALLATION TECHNICIAN-C [facility] Work Phone: 04-27-2017 varicella virus vaccine Moris Kiran PLANNER SCHEDULER-C [facility] Work Phone: 04-27-2017 varicella virus vaccine Kanchan Grider MD [facility] Payers Date Payer Category Payer Medicare [employer] O SNP [id number] 2022-Present [phone] [address] [place] [address] O [id number] 2001 Medicaid MEDICAID [facility] MEDICAID [id number] 2001-Present [phone] [address] [place] [address] Medicaid [id number] Social History Date Type Detail [facility] History of tobacco use Cigarette Smoker [facility] Start: 03-13-2022 End: 04-13-2022 Alcohol intake Current drinker of alcohol (finding) [facility] Start: 1950 Sex Assigned At Not on file [facility] Start: 03-03-2022 End: 04-13-2022 Exposure to SARS-CoV-2 (event) Not sure [facility] Clinical Notes 05-31-2021 to 04-19-2022 Telephone Encounter - Haydee Roberts PA-C - 04/19/2022 1:26 PM BOWENTMykel Main MD - 04/13/2022 12:00 PM Chetan Le RN - 04/13/2022 11:53 AM Chetan Le RN - 04/13/2022 11:49 AM EDT Note Date & Type Note Facility 04-19-2022 Miscellaneous Notes Patient called in inquiring about endoscopy results. Discussed that colonoscopy showed small polyp which came back as hyperplastic, completely benign. Perianal exam was noted to be normal per Dr. Main's report. No concerning findings on EGD, biopsies showed normal tissue and no evidence of H. Pylori. Dr. Main recommended repeat colonoscopy in 3-5 years for surveillance based on patient's history of anal cancer. Patient verbalized understanding of all above, denies any questions or concerns at this time. HM updated and recall letter generated. documented in this encounter [facility] 04-13-2022 Note HNO ID: [id number] Author: Deann Le RN Service: ? Author Type: Registered Nurse Type: Nursing Progress Note Filed: 04/13/2022 12:00 PM Note Text: Patient passing large amounts of air rectally. [facility] 04-13-2022 History and physical note Images from the original note were not included. HISTORY AND PHYSICAL Inna Vidal 1950 REFERRING PHYSICIAN: Mykel Main MD CHIEF COMPLAINT: Consult (colonoscopy and EGD) HPI: The patient is a 72 year old female referred for endoscopy. Inna notes a history of esophageal polyps and anal cancer. Patient is poor historian. Multiple outside records reviewed. She has noted recent dysphagia. Patient denies any change in bowel habits, weight changes, blood in stools, black tarry stools or abdominal pain. Patient had followed with Dr. Main in the past. She had anoscopy performed 05/31/21 without concerning findings noted. She has also seen Dr. Main for a port placement. She had office follow up with Dr. 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 I placed a Port-A-Cath on her last year and she completed her radiation and chemotherapy and has had a recent PET scan which did light up some activity in the anal area. Objective:Blood pressure 126/78, pulse 89, temperature 36.6 C (97.8 F), height 162.6 cm (5' 4 ), weight 51.6 kg (113 lb 12.8 oz), SpO2 96 %. Abdomen is soft Assessment:Squamous cell cancer, anus (hcc) (primary encounter diagnosis) Plan: At this juncture we are going to refer her to colorectal surgery for endorectal ultrasound. Patient verbalizes understanding of that recommendation but declined to follow up with colorectal surgery. She was seen in interim by director of the biophysics facility Dr. Thornton in [place], notes reviewed. Colonoscopy was recommended. Patient stated she had scheduled this with Dr. Thornton's office but decided she wanted this sooner than what was offered, and with Dr. Main as she has been seen by him previously. Patient had a recent CT scan done through [facility] 02/27/22 which showed soft tissue swelling and prominence of the distal rectum extending into region of anus. PAST MEDICAL HISTORY PAST MEDICAL HISTORY Diagnosis Date Allergic rhinitis, cause unspecified Anal cancer (HCC) Benign neoplasm of colon Chronic obstructive pulmonary disease (COPD) (HCC) Degeneration of intervertebral disc, site unspecified Diverticulosis of colon (without mention of hemorrhage) Hemorrhage of rectum and anus Microcalcifications of the breast Nausea Nonspecific abnormal finding in stool contents Personal history of colonic polyps PMH - PAST MEDICAL HISTORY OF hx of bronchitis Unspecified asthma(493.90) PAST SURGICAL HISTORY PAST SURGICAL HISTORY Procedure Laterality Date BX BREAST PERC VACUUM/ROTN 12/03/2012 COLONOSCOPY 10/01/2014 COLONOSCOPY FLX DX W/COLLJ SPEC WHEN PFRMD 10/10/2017 Colonoscopy COLONOSCOPY FLX DX W/COLLJ SPEC WHEN PFRMD 02/10/2021 COLONOSCOPY W/BIOPSY SINGLE/MULTIPLE 09/23/2009 COLSC FLX W/RMVL OF TUMOR POLYP LESION SNARE TQ 09/19/2007 EGD TRANSORAL BIOPSY SINGLE/MULTIPLE 02/10/2021 ESOPHAGOGASTRODUODENOSCOPY TRANSORAL DIAGNOSTIC 10/10/2017 EGD INSJ TUNNELED CTR VAD W/SUBQ PORT AGE 5 YR/> 09/2020 LIG/TRNSXJ FLP TUBE ABDL/VAG APPR UNI/BI Tubal ligation PAST SURGICAL HISTORY OF carpal tunnel bilateral PAST SURGICAL HISTORY OF 07/04/2007 knee surgery left TONSILLECTOMY PRIMARY/SECONDARY <AGE 13 Tonsillectomy TOTAL ABDOMINAL HYSTERECT W/WO RMVL TUBE OVARY 2002 Hysterectomy, LISET CURRENT MEDICATIONS Current Outpatient Medications Medication Sig Multivitamin capsule multivitamin capsule multivitamin capsule 1 CAP PO EVERY MORNING February 11, 2018 Active 02-11-2018 [facility] ([id number]) amLODIPine (NORVASC) 10 mg tablet Take 10 mg by mouth once daily. ALBUTEROL SULFATE (VENTOLIN INHALATION) Inhale 2 Puffs as instructed once daily. fentaNYL (DURAGESIC) 12 mcg/hr pt72 Apply 1 patch to skin every 72 hours. Remove old patch. (Patient not taking: Reported on 05/30/2021) hydrocortisone (HEMORRHOIDAL HC) 25 mg suppository Hydrocortisone Hydrocortisone Acetate Active 25 MG RC TWICE A DAY April 13, 2020 8:42am 04-13-2020 [facility] ([id number]) (Patient not taking: Reported on 05/30/2021) lidocaine (XYLOCAINE) 4 % (40 mg/mL) external solution 1 mL. (Patient not taking: Reported on 05/30/2021 ) lidocaine-prilocaine (EMLA) 2.5-2.5 % cream Lidocaine / Prilocaine Lidocaine/Prilocaine (Lidocaine-Prilocaine Cream) 30 GM cream Active 1 APPLIC TP DAILY NEEDED 11 20September 22, 2020 1:40pm 09-22-2020 [facility] ([id number]) (Patient not taking: Reported on 05/30/2021) loperamide (IMODIUM) 2 mg cap(s) Loperamide Loperamide (Imodium) 2 MG capsule Active 2 MG PO EVERY 2 HOURS NEEDED 20 08September 22, 2020 1:48pm Take 2 pills with the first loose stool, then 1 pill after each loose stool thereafter. 09-17-2020 [facility] ([id number]) (Patient not taking: Reported on 05/30/2021) ondansetron orally disintegrating (ZOFRAN ODT) 4 mg disintegrating tablet Ondansetron Ondansetron (Zofran Odt) 4 MG tablet Active 4 MG PO EVERY 8 HOURS NEEDED 20 08September 22, 2020 1:40pm 09-22-2020 [facility] ([id number]) (Patient not taking: Reported on 05/30/2021) oxyCODONE-acetaminophen (PERCOCET) 5-325 mg tablet TAKE 1 TABLET TWICE DAILY for 7 days, as needed. (Patient not taking: TAKE 1 TABLET TWICE DAILY for 7 days, as needed.) SSD 1 % cream APPLY TO THE AFFECTED AREA(S) THREE TIMES DAILY (Patient not taking: Reported on 05/30/2021) FOLIC ACID/MULTIVIT,IRON,ADV[employer]ED A[employer]LYTICS ASSOCIATE (CENTRUM ORAL) Take by mouth once daily. albuterol (PROAIR HFA) 90 mcg/Actuation INHALATION HFAA use as directed No current facility-administered medications for this visit. ALLERGIES: Zocor [Simvastatin] PERSONAL HISTORY: SOCIAL HISTORY Social History Tobacco Use Smoking status: Current Every Day Smoker Packs/day: 1.00 Years: 40.00 Pack years: 40.00 Types: Cigarettes Smokeless tobacco: Never Used Vaping Use Vaping Use: Never used Substance Use Topics Alcohol use: Yes Comment: occassional Drug use: No FAMILY HISTORY: FAMILY HISTORY FAMILY HISTORY Problem Relation Age of Onset Diabetes Mother Heart Mother Diabetes Sister Diabetes Brother Heart Brother REVIEW OF SYMPTOMS: The review of systems data was entered by the nurse and reviewed by co Nursing Notes: Galilea Villarreal LPN 03/13/2022 9:39 AM Signed REVIEW OF SYSTEMS: General: The patient notes fatigue, notes weight loss, denies weight gain, notes feeling hot, and notes feelings of cold. Eyes: The patient notes glaucoma, denies eye injury/surgery, does not wear glasses or contacts. Ear/Nose/Throat: The patient notes allergies, denies hayfever, denies ear infections, and denies bloody noses. Cardiovascular: The patient denies chest pain, denies heart disease, notes high blood pressure,denies cardiac stent, denies prior heart attack, denies irregular heart beat, denies high cholesterol, denies poor circulation, denies heart failure, other cardiac issues, denies claudication, denies cold feet, denies peripheral arterial stent. Respiratory: The patient denies tuberculosis, denies pneumonia, notes frequent cough, denies pulmonary embolism, denies shortness of breath, and denies coughing up blood. Gastrointestinal: The patient denies difficulty swallowing, denies acid reflux, denies ulcers, denies vomiting, denies jaundice/hepatitis, denies gallbladder problems, denies black or tarry stools, denies hemorrhoids, denies bleeding from rectum, denies diverticulitis, denies constipation, denies diarrhea, denies loss of stool control, and denies hernias. Kidney/Bladder: The patient denies kidney stones, denies urine infections, and denies bloody urine. Skin: The patient denies a history of skin cancer, denies bleeding/changing moles, and denies a history of skin rash. Neurologic: The patient denies a history of epilepsy/convulsions, notes headaches, denies head/spinal injuries, and denies stroke/TIA. Psychiatric: The patient denies psychiatric medications, denies depression, and denies voices, denies substance abuse. Endocrine: The patient denies thyroid disorders, denies diabetes, and notes hormonal problems. Hematologic: The patient denies a history of bruising, denies bleeding, and denies anemia, denies blood clots. Infections: The patient denies a history of measles and mumps, denies rheumatic fever, and denies sexually transmitted diseases. Musculoskeletal: The patient notes back pain/injury, denies back problems, denies sciatica, notes knee/foot trouble, notes arthritis, or denies gout. When was patient's last Mammogram screening? 2021 Last Colonoscopy: 2016 Galilea Villarreal LPN I have confirmed and edited as necessary, the PFSH and ROS obtained by others. Haydee Roberts PA-C PHYSICAL EXAMINATION: General: The patient is 72 year old female, well nourished, well hydrated in no acute distress. The patient is oriented to time, place, and person. VITALS: Blood pressure 142/78, pulse 88, temperature 36.6 C (97.9 F), height 162.6 cm (5' 4 ), weight 52.2 kg (115 lb), SpO2 97 %. Body mass index is 19.74 kg/m . HEENT: Normal cephalic, ataumatic, pupils are equally round, sclera are anicteric, mucous membranes are moist, oropharynx is clear. Neck has no masses, asymmetry or lymphadenopathy. Respiratory: Clear to auscultation and percussion. Normal respiratory excursion and pattern. Cardiac: Examination is regular rate and rhythm. Normal S1/S2 Abdominal exam: Soft, nontender, with no palpable masses. No hepatosplenomegaly. No palpable hernias. Extremities: no clubbing, cyanosis or edema. No adenopathy. LABORATORY VALUES: As Noted RADIOLOGIC STUDIES: As Noted Assessment IMPRESSION: Dysphagia, history of esophageal polyps. Squamous cell carcinoma of anus PLAN: I have reviewed my findings with Dr. Main, who also participated in development of the following plan. Will plan for upper and lower endoscopy. We discussed the risks and benefits of the planned endoscopy. I have informed the patient that complications can occur including failure to complete the endoscopy and perforation. The patient had the opportunity to ask questions concerning the planned endoscopy. My staff has also explained the procedure to the patient in understandable terms and has given the patient printed material concerning the procedure. The patient freely consents to surgery. The patient was offered a surgery/procedure at a [facility] facility. I have counseled the patient regarding the risk of exposure to and/or potential harm posed by the COVID-19 virus with having a surgery/procedure at this time versus the risk of delaying the surgery/procedure. It is not possible to know either the risk of delaying the surgery or procedure or chance of getting an infection with perfect accuracy, but a joint decision was made between the patient and myself to proceed at this time with endoscopy. I have explained to the patient the difference between IV conscious sedation and MAC anesthesia - and I have offered either, according to the patient's wishes. I have explained that with IV conscious sedation there is no anesthesia provider available and therefore there is a limitation of the amount of IV medications that can be given and that the patient may wake up in the middle of the procedure and/or experience pain/discomfort during the procedure. Further discussion was done and the patient was given the opportunity to ask questions and all questions were answered. The patient chooses IV conscious sedation, OK per surgeon I plan to use Golytely bowel preparation Diagnoses: (R13.10) Dysphagia, unspecified type (primary encounter diagnosis) (C21.0) Squamous cell cancer, anus (HCC) (Z86.010) History of colonic polyps (R93.3) Abnormal finding on GI tract imaging I spent a total of 39 minutes on the date of the service which included preparing to see the patient, [id number] patient care, completing clinical documentation, obtaining and/or reviewing separately obtained history, performing a medically appropriate examination, counseling and educating the patient/family/caregiver, ordering medications, tests, or procedures, communicating with other HCPs (not separately reported) and care coordination (not separately reported). Haydee Roberts PA-C UPDATED HISTORY AND PHYSICAL EXAMINATION SERVICE DATE: 04/13/2022 SERVICE TIME: 10:54 AM PHYSICAL EXAM MUST BE COMPLETED ON ADMISSION The History and Physical (completed in the past 30 days) has been reviewed and the patient has been examined. The contents accurately reflect the patient's condition with the following additions or revisions since the H&P was completed. Examination indicates no changes. This H&P can be found in the attached. SIGNATURE: Mykel Main III, MD PATIENT NAME: Inna Vidal DATE: April 13, 2022 TIME: 10:53 AM documented in this encounter [facility] 04-13-2022 Nurse Note Patient passing large amounts of air rectally. Patient received in PACU, on left side, eyes closed, arouses to verbal stimuli, abdomen soft, non distended, denies pain or nausea, respirations regular and unlabored. documented in this encounter [facility] 03-27-2022 Miscellaneous Notes Patient contacted and scheduled with Dr. Main on 04/13. Patient stated she has the instructions for her bowel prep. Isabella Quiroga PSS 1st attempt to reach patient to schedule upper and lower scopes at [facility] with Dr. Main per Haydee Roberts. LV to call me directly at [phone] to proceed with scheduling. Orders are in the [place] documented in this encounter [facility] 03-13-2022 Note HNO ID: [id number] Author: Haydee Roberts PA-C Service: ? Author Type: Physician Heel Slugger Type: Progress Notes Filed: 03/24/2022 1:53 PM Note Text: HISTORY AND PHYSICAL Inna Vidal 1950 REFERRING PHYSICIAN: Mykel Main MD CHIEF COMPLAINT: Consult (colonoscopy and EGD) HPI: The patient is a 72 year old female referred for endoscopy. Inna notes a history of esophageal polyps and anal cancer. Patient is poor historian. Multiple outside records reviewed. She has noted recent dysphagia. Patient denies any change in bowel habits, weight changes, blood in stools, black tarry stools or abdominal pain. Patient had followed with Dr. Main in the past. She had anoscopy performed 05/31/21 without concerning findings noted. She has also seen Dr. Main for a port placement. She had office follow up with Dr. 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 I placed a Port-A-Cath on her last year and she completed her radiation and chemotherapy and has had a recent PET scan which did light up some activity in the anal area. ? Objective:Blood pressure 126/78, pulse 89, temperature 36.6 ?C (97.8 ?F), height 162.6 cm (5' 4 ), weight 51.6 kg (113 lb 12.8 oz), SpO2 96 %. ? Abdomen is soft ? Assessment:Squamous cell cancer, anus (hcc) (primary encounter diagnosis) ? Plan: At this juncture we are going to refer her to colorectal surgery for endorectal ultrasound. Patient verbalizes understanding of that recommendation but declined to follow up with colorectal surgery. She was seen in interim by director of the biophysics facility Dr. Thornton in [place], notes reviewed. Colonoscopy was recommended. Patient stated she had scheduled this with Dr. Thornton's office but decided she wanted this sooner than what was offered, and with Dr. Main as she has been seen by him previously. Patient had a recent CT scan done through [facility] 02/27/22 which showed soft tissue swelling and prominence of the distal rectum extending into region of anus. PAST MEDICAL HISTORY Diagnosis Date - Allergic rhinitis, cause unspecified - Anal cancer (HCC) - Benign neoplasm of colon - Chronic obstructive pulmonary disease (COPD) (HCC) - Degeneration of intervertebral disc, site unspecified - Diverticulosis of colon (without mention of hemorrhage) - Hemorrhage of rectum and anus - Microcalcifications of the breast - Nausea - Nonspecific abnormal finding in stool contents - Personal history of colonic polyps - PMH - PAST MEDICAL HISTORY OF hx of bronchitis - Unspecified asthma(493.90) PAST SURGICAL HISTORY Procedure Laterality Date - BX BREAST PERC VACUUM/ROTN 12/03/2012 - COLONOSCOPY 10/01/2014 - COLONOSCOPY FLX DX W/COLLJ SPEC WHEN PFRMD 10/10/2017 Colonoscopy - COLONOSCOPY FLX DX W/COLLJ SPEC WHEN PFRMD 02/10/2021 - COLONOSCOPY W/BIOPSY SINGLE/MULTIPLE 09/23/2009 - COLSC FLX W/RMVL OF TUMOR POLYP LESION SNARE TQ 09/19/2007 - EGD TRANSORAL BIOPSY SINGLE/MULTIPLE 02/10/2021 - ESOPHAGOGASTRODUODENOSCOPY TRANSORAL DIAGNOSTIC 10/10/2017 EGD - INSJ TUNNELED CTR VAD W/SUBQ PORT AGE 5 YR/> 09/2020 - LIG/TRNSXJ FLP TUBE ABDL/VAG APPR UNI/BI Tubal ligation - PAST SURGICAL HISTORY OF carpal tunnel bilateral - PAST SURGICAL HISTORY OF 07/04/2007 knee surgery left - TONSILLECTOMY PRIMARY/SECONDARY Tonsillectomy - TOTAL ABDOMINAL HYSTERECT W/WO RMVL TUBE OVARY 2002 Hysterectomy, LISET Current Outpatient Medications Medication Sig - Multivitamin capsule multivitamin capsule multivitamin capsule 1 CAP PO EVERY MORNING February 11, 2018 Active 02-11-2018 [facility] ([id number]) - amLODIPine (NORVASC) 10 mg tablet Take 10 mg by mouth once daily. - ALBUTEROL SULFATE (VENTOLIN INHALATION) Inhale 2 Puffs as instructed once daily. - fentaNYL (DURAGESIC) 12 mcg/hr pt72 Apply 1 patch to skin every 72 hours. Remove old patch. (Patient not taking: Reported on 05/30/2021) - hydrocortisone (HEMORRHOIDAL HC) 25 mg suppository Hydrocortisone Hydrocortisone Acetate Active 25 MG RC TWICE A DAY April 13, 2020 8:42am 04-13-2020 [facility] ([id number]) (Patient not taking: Reported on 05/30/2021) - lidocaine (XYLOCAINE) 4 % (40 mg/mL) external solution 1 mL. (Patient not taking: Reported on 05/30/2021 ) - lidocaine-prilocaine (EMLA) 2.5-2.5 % cream Lidocaine / Prilocaine Lidocaine/Prilocaine (Lidocaine-Prilocaine Cream) 30 GM cream Active 1 APPLIC TP DAILY NEEDED 11 20September 22, 2020 1:40pm 09-22-2020 [facility] ([id number]) (Patient not taking: Reported on 05/30/2021) - loperamide (IMODIUM) 2 mg cap(s) Loperamide Loperamide (Imodium) 2 MG capsule Active 2 MG PO EVERY 2 HOURS NEEDED 20 08September 22, 2020 1:48pm Take 2 pills with the first loose stool, then 1 pill after each loose stool thereafter. 09-17-2020 [facility] (more content not included)... [facility] 03-13-2022 History of Present illness Narrative HISTORY AND PHYSICAL Inna Vidal 1950 REFERRING PHYSICIAN: Mykel Main MD CHIEF COMPLAINT: Consult (colonoscopy and EGD) HPI: The patient is a 72 year old female referred for endoscopy. Inna notes a history of esophageal polyps and anal cancer. Patient is poor historian. Multiple outside records reviewed. She has noted recent dysphagia. Patient denies any change in bowel habits, weight changes, blood in stools, black tarry stools or abdominal pain. Patient had followed with Dr. Main in the past. She had anoscopy performed 05/31/21 without concerning findings noted. She has also seen Dr. Main for a port placement. She had office follow up with Dr. 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 I placed a Port-A-Cath on her last year and she completed her radiation and chemotherapy and has had a recent PET scan which did light up some activity in the anal area. Objective:Blood pressure 126/78, pulse 89, temperature 36.6 C (97.8 F), height 162.6 cm (5' 4 ), weight 51.6 kg (113 lb 12.8 oz), SpO2 96 %. Abdomen is soft Assessment:Squamous cell cancer, anus (hcc) (primary encounter diagnosis) Plan: At this juncture we are going to refer her to colorectal surgery for endorectal ultrasound. Patient verbalizes understanding of that recommendation but declined to follow up with colorectal surgery. She was seen in interim by director of the biophysics facility Dr. Thornton in [place], notes reviewed. Colonoscopy was recommended. Patient stated she had scheduled this with Dr. Thornton's office but decided she wanted this sooner than what was offered, and with Dr. Main as she has been seen by him previously. Patient had a recent CT scan done through [facility] 02/27/22 which showed soft tissue swelling and prominence of the distal rectum extending into region of anus. PAST MEDICAL HISTORY Diagnosis Date Allergic rhinitis, cause unspecified Anal cancer (HCC) Benign neoplasm of colon Chronic obstructive pulmonary disease (COPD) (HCC) Degeneration of intervertebral disc, site unspecified Diverticulosis of colon (without mention of hemorrhage) Hemorrhage of rectum and anus Microcalcifications of the breast Nausea Nonspecific abnormal finding in stool contents Personal history of colonic polyps PMH - PAST MEDICAL HISTORY OF hx of bronchitis Unspecified asthma(493.90) PAST SURGICAL HISTORY Procedure Laterality Date BX BREAST PERC VACUUM/ROTN 12/03/2012 COLONOSCOPY 10/01/2014 COLONOSCOPY FLX DX W/COLLJ SPEC WHEN PFRMD 10/10/2017 Colonoscopy COLONOSCOPY FLX DX W/COLLJ SPEC WHEN PFRMD 02/10/2021 COLONOSCOPY W/BIOPSY SINGLE/MULTIPLE 09/23/2009 COLSC FLX W/RMVL OF TUMOR POLYP LESION SNARE TQ 09/19/2007 EGD TRANSORAL BIOPSY SINGLE/MULTIPLE 02/10/2021 ESOPHAGOGASTRODUODENOSCOPY TRANSORAL DIAGNOSTIC 10/10/2017 EGD INSJ TUNNELED CTR VAD W/SUBQ PORT AGE 5 YR/> 09/2020 LIG/TRNSXJ FLP TUBE ABDL/VAG APPR UNI/BI Tubal ligation PAST SURGICAL HISTORY OF carpal tunnel bilateral PAST SURGICAL HISTORY OF 07/04/2007 knee surgery left TONSILLECTOMY PRIMARY/SECONDARY <AGE 13 Tonsillectomy TOTAL ABDOMINAL HYSTERECT W/WO RMVL TUBE OVARY 2002 Hysterectomy, LISET Current Outpatient Medications Medication Sig Multivitamin capsule multivitamin capsule multivitamin capsule 1 CAP PO EVERY MORNING February 11, 2018 Active 02-11-2018 [facility] ([id number]) amLODIPine (NORVASC) 10 mg tablet Take 10 mg by mouth once daily. ALBUTEROL SULFATE (VENTOLIN INHALATION) Inhale 2 Puffs as instructed once daily. fentaNYL (DURAGESIC) 12 mcg/hr pt72 Apply 1 patch to skin every 72 hours. Remove old patch. (Patient not taking: Reported on 05/30/2021) hydrocortisone (HEMORRHOIDAL HC) 25 mg suppository Hydrocortisone Hydrocortisone Acetate Active 25 MG RC TWICE A DAY April 13, 2020 8:42am 04-13-2020 [facility] ([id number]) (Patient not taking: Reported on 05/30/2021) lidocaine (XYLOCAINE) 4 % (40 mg/mL) external solution 1 mL. (Patient not taking: Reported on 05/30/2021 ) lidocaine-prilocaine (EMLA) 2.5-2.5 % cream Lidocaine / Prilocaine Lidocaine/Prilocaine (Lidocaine-Prilocaine Cream) 30 GM cream Active 1 APPLIC TP DAILY NEEDED 11 20September 22, 2020 1:40pm 09-22-2020 [facility] ([id number]) (Patient not taking: Reported on 05/30/2021) loperamide (IMODIUM) 2 mg cap(s) Loperamide Loperamide (Imodium) 2 MG capsule Active 2 MG PO EVERY 2 HOURS NEEDED 20 08September 22, 2020 1:48pm Take 2 pills with the first loose stool, then 1 pill after each loose stool thereafter. 09-17-2020 [facility] ([id number]) (Patient not taking: Reported on 05/30/2021) ondansetron orally disintegrating (ZOFRAN ODT) 4 mg disintegrating tablet Ondansetron Ondansetron (Zofran Odt) 4 MG tablet Active 4 MG PO EVERY 8 HOURS NEEDED 20 08September 22, 2020 1:40pm 09-22-2020 [facility] ([id number]) (Patient not taking: Reported on 05/30/2021) oxyCODONE-acetaminophen (PERCOCET) 5-325 mg tablet TAKE 1 TABLET TWICE DAILY for 7 days, as needed. (Patient not taking: TAKE 1 TABLET TWICE DAILY for 7 days, as needed.) SSD 1 % cream APPLY TO THE AFFECTED AREA(S) THREE TIMES DAILY (Patient not taking: Reported on 05/30/2021) FOLIC ACID/MULTIVIT,IRON,ADVANCED ANALYTICS ASSOCIATE (CENTRUM ORAL) Take by mouth once daily. albuterol (PROAIR HFA) 90 mcg/Actuation INHALATION HFAA use as directed No current facility-administered medications for this visit. ALLERGIES: Zocor [Simvastatin] PERSONAL HISTORY: Social History Tobacco Use Smoking status: Current Every Day Smoker Packs/day: 1.00 Years: 40.00 Pack years: 40.00 Types: Cigarettes Smokeless tobacco: Never Used Vaping Use Vaping Use: Never used Substance Use Topics Alcohol use: Yes Comment: occassional Drug use: No FAMILY HISTORY: FAMILY HISTORY Problem Relation Age of Onset Diabetes Mother Heart Mother Diabetes Sister Diabetes Brother Heart Brother REVIEW OF SYMPTOMS: The review of systems data was entered by the nurse and reviewed by co Nursing Notes: Galilea Villarreal LPN 03/13/2022 9:39 AM Signed REVIEW OF SYSTEMS: General: The patient notes fatigue, notes weight loss, denies weight gain, notes feeling hot, and notes feelings of cold. Eyes: The patient notes glaucoma, denies eye injury/surgery, does not wear glasses or contacts. Ear/Nose/Throat: The patient notes allergies, denies hayfever, denies ear infections, and denies bloody noses. Cardiovascular: The patient denies chest pain, denies heart disease, notes high blood pressure,denies cardiac stent, denies prior heart attack, denies irregular heart beat, denies high cholesterol, denies poor circulation, denies heart failure, other cardiac issues, denies claudication, denies cold feet, denies peripheral arterial stent. Respiratory: The patient denies tuberculosis, denies pneumonia, notes frequent cough, denies pulmonary embolism, denies shortness of breath, and denies coughing up blood. Gastrointestinal: The patient denies difficulty swallowing, denies acid reflux, denies ulcers, denies vomiting, denies jaundice/hepatitis, denies gallbladder problems, denies black or tarry stools, denies hemorrhoids, denies bleeding from rectum, denies diverticulitis, denies constipation, denies diarrhea, denies loss of stool control, and denies hernias. Kidney/Bladder: The patient denies kidney stones, denies urine infections, and denies bloody urine. Skin: The patient denies a history of skin cancer, denies bleeding/changing moles, and denies a history of skin rash. Neurologic: The patient denies a history of epilepsy/convulsions, notes headaches, denies head/spinal injuries, and denies stroke/TIA. Psychiatric: The patient denies psychiatric medications, denies depression, and denies voices, denies substance abuse. Endocrine: The patient denies thyroid disorders, denies diabetes, and notes hormonal problems. Hematologic: The patient denies a history of bruising, denies bleeding, and denies anemia, denies blood clots. Infections: The patient denies a history of measles and mumps, denies rheumatic fever, and denies sexually transmitted diseases. Musculoskeletal: The patient notes back pain/injury, denies back problems, denies sciatica, notes knee/foot trouble, notes arthritis, or denies gout. When was patient's last Mammogram screening? 2021 Last Colonoscopy: 2016 Galilea Villarreal LPN I have confirmed and edited as necessary, the PFSH and ROS obtained by others. Haydee Roberts PA-C PHYSICAL EXAMINATION: General: The patient is 72 year old female, well nourished, well hydrated in no acute distress. The patient is oriented to time, place, and person. VITALS: Blood pressure 142/78, pulse 88, temperature 36.6 C (97.9 F), height 162.6 cm (5' 4 ), weight 52.2 kg (115 lb), SpO2 97 %. Body mass index is 19.74 kg/m . HEENT: Normal cephalic, ataumatic, pupils are equally round, sclera are anicteric, mucous membranes are moist, oropharynx is clear. Neck has no masses, asymmetry or lymphadenopathy. Respiratory: Clear to auscultation and percussion. Normal respiratory excursion and pattern. Cardiac: Examination is regular rate and rhythm. Normal S1/S2 Abdominal exam: Soft, nontender, with no palpable masses. No hepatosplenomegaly. No palpable hernias. Extremities: no clubbing, cyanosis or edema. No adenopathy. LABORATORY VALUES: As Noted RADIOLOGIC STUDIES: As Noted Assessment IMPRESSION: Dysphagia, history of esophageal polyps. Squamous cell carcinoma of anus PLAN: I have reviewed my findings with Dr. Main, who also participated in development of the following plan. Will plan for upper and lower endoscopy. We discussed the risks and benefits of the planned endoscopy. I have informed the patient that complications can occur including failure to complete the endoscopy and perforation. The patient had the opportunity to ask questions concerning the planned endoscopy. My staff has also explained the procedure to the patient in understandable terms and has given the patient printed material concerning the procedure. The patient freely consents to surgery. The patient was offered a surgery/procedure at a [facility] facility. I have counseled the patient regarding the risk of exposure to and/or potential harm posed by the COVID-19 virus with having a surgery/procedure at this time versus the risk of delaying the surgery/procedure. It is not possible to know either the risk of delaying the surgery or procedure or chance of getting an infection with perfect accuracy, but a joint decision was made between the patient and myself to proceed at this time with endoscopy. I have explained to the patient the difference between IV conscious sedation and MAC anesthesia - and I have offered either, according to the patient's wishes. I have explained that with IV conscious sedation there is no anesthesia provider available and therefore there is a limitation of the amount of IV medications that can be given and that the patient may wake up in the middle of the procedure and/or experience pain/discomfort during the procedure. Further discussion was done and the patient was given the opportunity to ask questions and all questions were answered. 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 Haydee Roberts PA-C documented in this encounter [facility] 03-13-2022 Nurse Note REVIEW OF SYSTEMS: General: The patient notes fatigue, notes weight loss, denies weight gain, notes feeling hot, and notes feelings of cold. Eyes: The patient notes glaucoma, denies eye injury/surgery, does not wear glasses or contacts. Ear/Nose/Throat: The patient notes allergies, denies hayfever, denies ear infections, and denies bloody noses. Cardiovascular: The patient denies chest pain, denies heart disease, notes high blood pressure,denies cardiac stent, denies prior heart attack, denies irregular heart beat, denies high cholesterol, denies poor circulation, denies heart failure, other cardiac issues, denies claudication, denies cold feet, denies peripheral arterial stent. Respiratory: The patient denies tuberculosis, denies pneumonia, notes frequent cough, denies pulmonary embolism, denies shortness of breath, and denies coughing up blood. Gastrointestinal: The patient denies difficulty swallowing, denies acid reflux, denies ulcers, denies vomiting, denies jaundice/hepatitis, denies gallbladder problems, denies black or tarry stools, denies hemorrhoids, denies bleeding from rectum, denies diverticulitis, denies constipation, denies diarrhea, denies loss of stool control, and denies hernias. Kidney/Bladder: The patient denies kidney stones, denies urine infections, and denies bloody urine. Skin: The patient denies a history of skin cancer, denies bleeding/changing moles, and denies a history of skin rash. Neurologic: The patient denies a history of epilepsy/convulsions, notes headaches, denies head/spinal injuries, and denies stroke/TIA. Psychiatric: The patient denies psychiatric medications, denies depression, and denies voices, denies substance abuse. Endocrine: The patient denies thyroid disorders, denies diabetes, and notes hormonal problems. Hematologic: The patient denies a history of bruising, denies bleeding, and denies anemia, denies blood clots. Infections: The patient denies a history of measles and mumps, denies rheumatic fever, and denies sexually transmitted diseases. Musculoskeletal: The patient notes back pain/injury, denies back problems, denies sciatica, notes knee/foot trouble, notes arthritis, or denies gout. When was patient's last Mammogram screening? 2021 Last Colonoscopy: 2016 Galilea Villarreal LPN documented in this encounter [facility] 12-05-2021 Note HNO ID: [id number] Author: Mykel Main MD Service: ? Author Type: Physician Type: Progress Notes Filed: 12/05/2021 1:56 PM Note Text: Subjective: Inna is a patient who I am following for squamous cell cancer of the anus. I placed a Port-A-Cath on her last year and she completed her radiation and chemotherapy and has had a recent PET scan which did light up some activity in the anal area. Objective:Blood pressure 126/78, pulse 89, temperature 36.6 ?C (97.8 ?F), height 162.6 cm (5' 4 ), weight 51.6 kg (113 lb 12.8 oz), SpO2 96 %. Abdomen is soft Assessment:Squamous cell cancer, anus (hcc) (primary encounter diagnosis) Plan: At this juncture we are going to refer her to colorectal surgery for endorectal ultrasound. [facility] 06-11-2021 Note HNO ID: [id number] Author: Mykel Main MD Service: ? Author Type: Physician Type: Progress Notes Filed: 06/11/2021 12:39 PM Note Text: Preoperative diagnosis: Squamous cell cancer of the anus status post radiation Postoperative diagnosis: The same Procedure: Anoscopic exam Surgeon: Jose David Procedure: Anoscope was inserted into the rectum and visually anal mucosa all looks good there is no signs of ulcerations Scope was withdrawn digital rectal exam was performed showing no firm areas. [facility] 06-11-2021 Note HNO ID: [id number] Author: Mykel Main MD Service: ? Author Type: Physician Type: Progress Notes Filed: 06/11/2021 11:48 AM Note Text: FOLLOW UP VISIT - PORTACATH REMOVAL NAME: Inna Vidal [facility] NO.: [id number] DATE OF SERVICE: 06/07/2021 : 1950 REFERRING PHYSICIAN: Kalpesh Vo MD Inna is a patient I am following for squamous cell cancer of the anus. 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 A right portacath was placed. The patient currently no longer requires the portacath. Inna returns for portacath removal. VITALS: Blood pressure 153/78, pulse 94, temperature 37.1 ?C (98.8 ?F), height 165.1 cm (5' 5 ), weight 49.4 kg (109 lb), SpO2 96 %. On examination, the port incision site is clean and intact. PROCEDURE: PORTACATH REMOVAL The risks, benefits and anticipated outcomes of the procedure, the risks and benefits of the alternatives to the procedure, and the roles and tasks of the personnel to be involved, were discussed with the patient, and the patient consents to the procedure and agrees to proceed. After consent was obtained and the site, person, and procedure verified, the patient`s skin was prepped and draped in the usual fashion. A combination of Lidocaine and Marcaine was injected into the skin. A linear incision was made over the prior incision and dissection was carried down to the portacath. The fixing proline sutures were removed. The port was then dissected from it's pocket. The port and catheter were then removed. The distal tip of the port was intact. The skin was then closed with deep 3-0 interrupted vicryl sutures. The patient tolerated the procedure well. Assessment IMPRESSION: Status post right port a cath removal PLAN: If the patient notes any problems or signs of wound infections, she should contact me immediately. Diagnoses: (Z45.2) Vascular catheter fitting or adjustment (primary encounter diagnosis) Return to Clinic: The patient is instructed to follow-up with me as needed. Mykel Main III, MD [facility] 06-07-2021 Note HNO ID: [id number] Author: Genia Layton LPN Service: ? Author Type: ? Type: Progress Notes Filed: 06/11/2021 11:48 AM Note Text: UNIVERSAL PROTOCOL / SAFETY CHECKLIST Procedure to be Performed: Removal of right internal jugular Port -A-Cath Sign In: A Moment of CARE was completed. Personnel directly involved with the procedure wore the appropriate PPE (Personal Protective Equipment). Patient/Surrogate Stated/Verified: PATIENT VERIFIED(optional for EMERGENT procedures): Patient name, Date of , Relevant allergies and The intended procedure Time Out Communication: Intended patient and procedure match the source documents. Consent documented and matches the intended procedure. Sign Out: SIGN OUT (optional for EMERGENT procedures): No specimen collected. Genia Layton LPN [facility] 05-31-2021 Note HNO ID: [id number] Author: Mykel Main MD Service: ? Author Type: Physician Type: Progress Notes Filed: 05/31/2021 8:13 AM Note Text: Subjective: Is a 71-year-old female who was diagnosed with squamous cell cancer of the anus. She is undergone chemotherapy and radiation. She has noticed a small skin tag in the area but the discomfort that she has had in the past is significantly improved. She was seen by her radiation oncologist and asked to follow back up with me. Objective:Blood pressure 122/70, pulse 89, temperature 36.8 ?C (98.2 ?F), weight 49.3 kg (108 lb 9.6 oz), SpO2 98 %. Anal area is very soft no signs of any firm areas like before. She does have a small anal tag. There is no signs of cellulitis or inflammation. Assessment: Squamous cell cancer of the anus Plan: I'm going to see her back in the office in a week and perform an anoscopy in the office. She did not want to have that done today. 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, except scrotum Dysphagia, unspecified type Esophageal polyp Other specified disorder of the esophagus [facility] Outpatient Procedure (Routine) - Authorized Specialty Diagnoses / Procedures Referred By Ekaterina alonso Referred To Contact [facility] Diagnoses Dysphagia, unspecified type Esophageal polyp Procedures EGD DIAGNOSTIC ESOPHAGOGASTRODUODENOSC OPY TRANSORAL DIAGNOSTIC Mykel Main MD [address] [place] [address] [address] Referral ID Status Reason Start Date Expiration Date Visits Requested Visits Authorized [id number] Authorized Auto-Generat ed Referral 03/24/2022 03/24/2023 1 1 * Outpatient Procedure (Routine) - Authorized Specialty Diagnoses / Procedures Referred By Ekaterina alonso Referred To Contact [facility] Diagnoses History of anal cancer Squamous cell carcinoma of perianal region Procedures COLONOSCOPY SCREENING COLONOSCOPY FLX DX W/COLLJ SPEC WHEN PFRMD Mykel Main MD [address] [place] [address] [address] Referral ID Status Reason Start Date Expiration Date Visits Requested Visits Authorized [id number] Authorized Auto-Generat ed Referral 03/24/2022 03/24/2023 1 1 [facility] [place] for referral (narrative)* Outpatient Procedure (Routine) - Closed Specialty Diagnoses / Procedures Referred By Ekaterina alonso Referred To Contact [facility] Diagnoses Dysphagia, unspecified type Esophageal polyp Procedures EGD DIAGNOSTIC ESOPHAGOGASTRODUODENOSC OPY TRANSORAL DIAGNOSTIC Mykel Main MD [address] [place] [address] [address] Referral ID Status Reason Start Date Expiration Date V isits Requested Visits Authorized [id number] Closed Auto-Generate d Referral 03/24/2022 03/24/2023 1 1 * Outpatient Procedure (Routine) - Closed Specialty Diagnoses / Procedures Referred By Ekaterina alonso Referred To Contact [facility] Diagnoses History of anal cancer Squamous cell carcinoma of perianal region Procedures COLONOSCOPY SCREENING COLONOSCOPY FLX DX W/COLLJ SPEC WHEN PFRMD Mykel Main MD [address] [place] [address] [address] Referral ID Status Reason Start Date Expiration Date V isits Requested Visits Authorized [id number] Closed Auto-Generate d Referral 03/24/2022 03/24/2023 1 1 [facility] [place] for visit Narrative* Auth/Cert Specialty Diagnoses / Procedures Referred By Ekaterina alonso Referred To Contact [facility] Diagnoses Personal history of other malignant neoplasm of rectum, rectosigmoid junction, and anus Procedures ESOPHAGOGASTRODUODENOSCOPY TRANSORAL DIAGNOSTIC COLONOSCOPY FLX W/REMOVAL OF FOREIGN BODY(S) [facility] [address] [place] [address] Referral ID Status Reason Start Date Expiration Date Visits Re quested Visits Authorized [id number] [address] [facility] Advance Directives No Advanced Directives Records FoundDocuments on File Type Date Recorded Patient Saw Grinder Expl anation Advance Directive(s) 10/10/2017 10:00 AM Advance Directive(s) 10/02/2017 12:34 PM Advance Directive(s) 10/05/2016 10:08 AM Advance Directive(s) 09/29/2016 11:36 AM Documents on File Type Date Recorded Patient Saw Grinder Expl anation Advance Directive(s) 10/10/2017 10:00 AM Advance Directive(s) 10/02/2017 12:34 PM Advance Directive(s) 10/05/2016 10:08 AM Advance Directive(s) 09/29/2016 11:36 AM Medications Administered Section Inactive Administered Medications - up to 3 most recent administrations Medication Order MAR Action Action Date Dose Rate Site benzocaine 20% 1 [place] (TOPEX) 1 [place], TOPICAL, DIRECTED, Starting on Sujata 04/13/22 at 1130, Until Sujata 04/13/22 at 1529, DOSING DIRECTED BY PHYSICIAN FOR PROCEDURAL SEDATION ONLY - Pharmaceutical Waste: Aerosol -, Intraprocedure Given 04/13/2022 11:15 AM EDT 5 Sprays diphenhydrAMINE 12.5-50 mg injection (BENADRYL) 12.5-50 mg, INTRAVENOUS, DIRECTED, Starting on Sujata 04/13/22 at 1130, Until Sujata 04/13/22 at 1529, DOSING DIRECTED BY PHYSICIAN FOR PROCEDURAL SEDATION ONLY, Intraprocedure Given 04/13/2022 11:20 AM EDT 50 mg fentaNYL 50 mcg/mL 25-100 mcg injection (SUBLIMAZE) 25-100 mcg, INTRAVENOUS, DIRECTED, Starting on Sujata 04/13/22 at 1130, Until Sujata 04/13/22 at 1529, DOSING DIRECTED BY PHYSICIAN FOR PROCEDURAL SEDATION ONLY, Intraprocedure Given 04/13/2022 11:33 AM EDT 50 mcg Summary Purpose Family History No Family History Records Found Additional Source Comments Source Comments (unrecognize d section and content) In the event this informatio n is protected by the Federal Confidentiality of Alcohol and Drug Abuse Patient Records regulations: The Federal rules restrict any use of the information to criminally investigate or prosecute any alcohol or drug abuse patient.[facility] the event this information is protected by the Federal Confidentiality of Alcohol and Drug Abuse Patient Records regulations: The Federal rules restrict any use of the information to criminally investigate or prosecute any alcohol or drug abuse patient.[facility] the event this information is protected by the Federal Confidentiality of Alcohol and Drug Abuse Patient Records regulations: The Federal rules restrict any use of the information to criminally investigate or prosecute any alcohol or drug abuse patient.[facility] the event this information is protected by the Federal Confidentiality of Alcohol and Drug Abuse Patient Records regulations: The Federal rules restrict any use of the information to criminally investigate or prosecute any alcohol or drug abuse patient.[facility] Reason for Visit (unrecogniz ed section and content) Specialty Diagnoses / Procedures Referred By Contedson t Referred To Contact Diagnoses Squamous cell cancer, anus (HCC) Procedures CONSULT TO COLO-RECTAL SURGERY OFFICE/OUTPATIENT [facility] [place] 60-74 MINUTES Mykel Main MD [address] [place] [address] French Richards MD [address] [place] [address] Referral ID Status Reason Start Date Expiration Date V isits Requested Visits Authorized [id number] Closed PCP Requested Referral 12/05/2021 12/05/2022 1 1 Reason Comments Procedure Reason Comments Results Care Teams (unrecognized sec tion and content) Application Integration Architect Relationship Specialty Start Date End Date Bernard Grider MD [address] [facility] [address] [place] [address] PCP - General Internal Medicine 02/07/22 Application Integration Architect Relationship Specialty Start Date End Date Bernard Grider MD [address] [address] PCP - General Internal Medicine 02/07/22 Application Integration Architect Relationship Specialty Start Date End Date Bernard Grider MD [address] [facility] [address] [place] [address] PCP - General Internal Medicine 02/07/22 INFORMATION SOURCE (unrecogn ized section and content) FOR RECORDS PERTAINING TO PATIENTS WHO ARE OR HAVE BEEN ENROLLED IN A CHEMICAL DEPENDENCY/SUBSTANCEABUSE PROGRAM, SOME INFORMATION MAY BE OMITTED. This clinical summary was aggregated from multiple sources. Caution should be exercised in using it in the provision of clinical care. This summary normalizes information from multiple sources, and as a consequence, information in this document may materially change the coding, format and clinical context of patient data. In addition, data may be omitted in some cases. CLINICAL DECISIONS SHOULD BE BASED ON THE PRIMARY CLINICAL RECORDS. [facility] [facility]. provides no warranty or guarantee of the accuracy or completeness of information in this document.
== END | disposition home or self-care (01) ==
LOC: BIMLAB 13:42
PROVIDERS: PCP Internal Medicine; Visit Provider Internal Medicine
DX: I10 Essential (primary) hypertension (principal)
CPT/HCPCS: 36415; 80053; 80061; 85025

== ENCOUNTER → 2023-12-27 | Outpatient (CLI) | payer MEDICARE, MEDICAID, SELFPAY ==
[2020-09-27 10:09] VITALS: BMI 21.7
--- NOTE | 2023-12-27 12:12 | BD_ITS ---
STUDY: DUAL ENERGY X-RAY ABSORPTIOMETRY / DXA REASON FOR EXAM: Female, 73 years old. Postmenopausal. History of osteopenia TECHNIQUE: Bone Mineral Density (BMD) measurements of lumbar spine and bilateral hips were obtained. COMPARISON: Comparison is made with prior study dated May 16, 2022. FINDINGS: Lumbar Spine (L1-L4): g/cm2 (1.232) / T-score (1.6) / Z-score (3.9) Findings are suggestive of normal bone density with a low fracture risk. Left Femur Total: g/cm2 (0.854) / T-score (-0.7) / Z-score (0.9) Left Femoral Neck: g/cm2 (0.777) / T-score (-0.6) / Z-score (1.3) Right Femur Total: g/cm2 (0.843) / T-score (-0.8) / Z-score (0.8) Right Femoral Neck: g/cm2 (0.836) / T-score (-0.1) / Z-score (1.8) The T-Scores on the most recent prior examination were: Lumbar Spine (L1-L4): There has been improvement of bone density since the previous examination. Left Femur Total: which represents a worsening of 2.5%. Right Femur Total: which represents a worsening of 5.5%. BD/Dexa Bone Density Study IMPRESSION: The patient is considered normal as outlined below according to World Shawn Organization (WHO) criteria with a low fracture risk. There has been worsening of bone density since the previous examination. Reference Information: The T-score is the number of standard deviations above or below the standard which is normal for young adults at their peak bone mineral density. The World Health Organization (WHO) interprets the T-scores as follows: Above -1 Normal bone density Between -1 and -2.5 Osteopenia Equal to / or below -2.5 Osteoporosis As a practical clinical guideline, osteopenia may be graded as follows: Mild -1 through -1.5 Moderate -1.6 through -2.0 Severe -2.1 through -2.4 The Z-score is the number of standard deviations above or below age-matched controls. A Z-score of less than -1.5 would be considered abnormal. References: 1. NIH Osteoporosis and Related Bone Diseases www osteo.org 2. International Society for Clinical Densitometry www iscd.org 3. National Osteoporosis Foundation www nof.org Electronically Signed: Jorge Pollard MD at 9:21 EDT ,
--- OUTSIDE RECORDS SUMMARY | 2023-12-27 12:49 | XMS RPT_ITS | CCD ---
Author Name Unknown Address [address] [place] [address] Organization [facility] Care Team Providers Care Plater Apprentice Name Role Phone Cornelius Moris PEPE Unavailable Unavailable Mary Alvarenga Unavailable Unavailable Bernard Griedr MD Unavailable Bernard Grider MD Unavailable [phone] Bernard Grider MD Unavailable [phone] Mary Alvarenga Unavailable Unavailable Mary Alvarenga Unavailable Unavailable Bernard Grider MD Primary Care Provider Allergies Allergy Classification Reported Allergen(s) Allergy Type Date of Onset Reaction(s) Facility (5 sources) CHOLESTEROL MEDICINE, UNURE WHICH drug allergy 06-08-2017 [place] like she was having a heart attack [facility] Work Phone: (4 sources) Simvastatin Drug Allergy 08-19-2007 [facility] Work Phone: Medications Current Medications Medication Drug Class(es) Dates Sig (Normalized) Sig (Original) polyethylene glycol 3350 017217 mg / potassium chloride 2970 mg / sodium bicarbonate 6740 mg / sodium chloride 5860 mg / sodium sulfate 83346 mg powder for oral solution (1 source) [...] MG TABS 1 tablet [id number] HYDROCODONE-ACETAMI NOPHEN [id number] Bernard Grider MD acetaminophen 325 mg / [...] 61 mm[Hg] Mykel Main MD Work Phone: [facility] 04-13-2022 12:19-0400 Respiratory rate 16 /min Mykel Main MD Work Phone: [facility] 04-13-2022 12:19-0400 Systolic blood pressure 131 mm[Hg] Mykel Main MD Work Phone: [facility] 04-13-2022 12:09-0400 Heart rate 65 /min Mykel Main MD Work Phone: [facility] 04-13-2022 12:09-0400 SaO2% (BldA) [Mass fraction] 98 % Mykel Main MD Work Phone: [facility] 04-13-2022 11:00-0400 Body temperature 97.2 [degF] Mykel Main MD Work Phone: [facility] 04-13-2022 11:00-0400 Body weight 52.2 kg Mykel Main MD Work Phone: [facility] 03-13-2022 09:36-0400 Body height 162.6 cm Haydee Roberts PA-C Work Phone: [facility] 03-13-2022 09:36-0400 Body temperature 97.9 [degF] Haydee Roberts PA-C Work Phone: [facility] 03-13-2022 09:36-0400 Body weight 52.16 kg Haydee Alejandra PA-C Work Phone: [facility] 03-13-2022 09:36-0400 Diastolic blood pressure 78 mm[Hg] Haydee Alejandra PA-C Work Phone: [facility] 03-13-2022 09:36-0400 Heart rate 88 /min Haydee Alejandra PA-C Work Phone: [facility] 03-13-2022 09:36-0400 SaO2% (BldA) [Mass fraction] 97 % Haydee Alejandra PA-C Work Phone: [facility] 03-13-2022 09:36-0400 Systolic blood pressure 142 mm[Hg] Haydee Okaton PA-C Work Phone: [facility] 08-02-2017 14:08-0400 BMI (Body Mass Index) 24.11 kg/m2 Moris Cornelius [employer] [facility] Work Phone: 08-02-2017 14:08-0400 Body Temperature 96.4 [degF] Moris Cornelius [employer] Work Phone: 08-02-2017 14:08-0400 BP Diastolic 109 mm[Hg] Moris Cornelius [employer] Work Phone: 08-02-2017 14:08-0400 BP Diastolic 110 mm[Hg] Moris Cornelius [employer] [facility] Work Phone: 08-02-2017 14:08-0400 BP Systolic 208 mm[Hg] Moris Cornelius [employer] [facility] Work Phone: 08-02-2017 14:08-0400 BP Systolic 200 mm[Hg] Moris Cornelius [employer] [facility] Work Phone: 08-02-2017 14:08-0400 Height 165.74 cm Moris Cornelius [employer] [facility] Work Phone: 08-02-2017 14:08-0400 Pulse (Heart Rate) 79 /min Moris Cornelius [employer] [facility] Work Phone: 08-02-2017 14:08-0400 Respiratory Rate 18 /min Moris Cornelius [employer] [facility] Work Phone: 08-02-2017 14:08-0400 Weight 66.23 kg Moris Cornelius [employer] [facility] Work Phone: 06-08-2017 14:00-0400 BMI (Body Mass Index) 24.44 kg/m2 Mary Marthey [facility] Work Phone: 06-08-2017 14:00-0400 Body Temperature 98.2 [degF] Mary Marthey [facility] Work Phone: 06-08-2017 14:00-0400 BP Diastolic 82 mm[Hg] [facility] Work Phone: 06-08-2017 14:00-0400 BP Diastolic 84 mm[Hg] Mary [facility] Work Phone: 06-08-2017 14:00-0400 BP Systolic 189 mm[Hg] Mary Marthey [facility] Work Phone: 06-08-2017 14:00-0400 BP Systolic 207 mm[Hg] Mary Marthey [facility] Work Phone: 06-08-2017 14:00-0400 BP Systolic 205 mm[Hg] Mary Marthey [facility] Work Phone: 06-08-2017 14:00-0400 Height 165.74 cm Mary Marthey [facility] Work Phone: 06-08-2017 14:00-0400 Pulse (Heart Rate) 68 /min Mary Marthey [facility] Work Phone: 06-08-2017 14:00-0400 Weight 67.13 kg [facility] Work Phone: 04-27-2017 10:36-0400 BMI (Body Mass Index) 23.45 kg/m2 Bernard Grider MD [facility] 04-27-2017 10:36-0400 BP Diastolic 88 mm[Hg] Bernard Grider MD [facility] 04-27-2017 10:36-0400 BP Systolic 186 mm[Hg] Bernard Grider MD [facility] 04-27-2017 10:36-0400 Weight 64.41 kg Bernard Grider MD [facility] 11-13-2014 13:11-0500 Body Temperature 98.6 [degF] Bernard Grider MD [facility] 11-13-2014 13:11-0500 BSA (Body Surface Area) 1.72 m2 Bernard Grider MD [facility] 11-13-2014 13:11-0500 Pulse (Heart Rate) 69 /min Bernard Grider MD [facility] 11-13-2014 13:11-0500 Respiratory Rate 20 /min Bernard Grider MD [facility] 10-13-2014 11:22-0500 Height 165.74 cm Bernard Grider MD [facility] Encounters Encounter Date Encounter Type Care Provider [...] 06-08-2017 Pre-surgery evaluation Preop exam Moris Cornelius [employer]-C Start: 06-08-2017 Pre-surgery evaluation Preop exam Mary Marthey Start: 06-05-2017 End: 06-06-2017 Chest x-ray 4/> views Bernard Grider MD Work Phone: Start: 06-05-2017 End: 06-06-2017 Electrocardiogram Bernard Grider MD Work Phone: Start: 06-05-2017 Preoperative cardiovascular examination Preoperative cardiovascular Moris Cornelius [employer] Start: 06-05-2017 Preoperative pulmonary examination Preoperative pulmon jonatan evaluation Moris Cornelius [employer] Start: 06-05-2017 End: 06-06-2017 Chest x-ray 4/> [...] Activity Detail Author Start: 04-13-2027 Colonoscopy COLONOSCOPY [facility] Start: 04-13-2027 COLORECTAL CANCER SCREENING COLORECTAL CANCER SCREENING [facility] Start: 02-10-2026 Colonoscopy COLONOSCOPY [facility] Start: 02-10-2026 COLORECTAL CANCER SCREENING COLORECTAL CANCER SCREENING [facility] Start: 04-13-2025 Colonoscopy COLONOSCOPY [facility] Start: 04-13-2025 COLORECTAL CANCER SCREENING COLORECTAL CANCER SCREENING [facility] Start: 06-22-2022 Influenza vaccination INFLUENZA (Season Ended) [place] [facility] Start: 05-07-2022 LIPID SCREEN LIPID SCREEN [facility] Start: 02-04-2022 COVID-19 VACCINE (4 - Booster for Pfizer series) COVID-19 VACCINE (4 - Booster for Pfizer series) [facility] Start: 10-22-2021 ADVANCE DIRECTIVE DISCUSSION ADVANCE DIRECTIVE DISCUSSION [facility] Start: 08-02-2017 End: 08-02-2017 Appointment Appointment [facility] Work Phone: Start: 08-02-2017 End: 08-02-2017 Follow Up Appt 2 weeks Follow Up Appt 2 weeks [facility] Work Phone: Start: 06-08-2017 End: 06-08-2017 Appointment Appointment [facility] Work Phone: Start: 06-08-2017 End: 06-08-2017 Follow Up Appt 1 month Follow Up Appt 1 month [facility] Work Phone: Start: 06-08-2017 End: 06-08-2017 Follow Up Appt 1 month Follow Up Appt 1 month [facility] Work Phone: Start: 06-05-2017 End: 06-06-2017 *EKG (Done in Hospital) *EKG (Done in Hospital) [facility] Work Phone: Start: 06-05-2017 End: 06-06-2017 Chest x-ray 4/> views Chest XRAY [facility] Work Phone: Start: 06-05-2017 End: 06-06-2017 *EKG (Done in Hospital) *EKG (Done in Hospital) [facility] Work Phone: Start: 06-05-2017 End: 06-06-2017 Chest x-ray 4/> views Chest XRAY [facility] Work Phone: Start: 04-27-2017 End: 05-07-2017 *CMP Complete Metabolic Panel *CMP Complete Metabolic Panel [facility] Work Phone: Start: 04-27-2017 End: 05-07-2017 CBC W Auto Differential panel - Blood *CBC without Diff [facility] Work Phone: Start: 04-27-2017 End: 05-07-2017 Follow Up Appt 3 months Follow Up Appt 3 months [facility] Work Phone: Start: 04-27-2017 End: 05-07-2017 Lipid panel [AGGREGATE] *Lipid Profile [facility] Work Phone: Start: 04-27-2017 End: 05-07-2017 Mammogram, screening Mammogram, Screening, both breasts [facility] Work Phone: Start: 04-27-2017 End: 04-27-2017 Appointment Appointment [facility] Start: 04-27-2017 End: 05-07-2017 *CMP Complete Metabolic Panel *CMP Complete Metabolic Panel [facility] Start: 04-27-2017 End: 05-07-2017 CBC W Auto Differential panel - Blood *CBC without Diff [facility] Start: 04-27-2017 End: 05-07-2017 Follow Up Appt 3 months Follow Up Appt 3 months [facility] Start: 04-27-2017 End: 05-07-2017 Lipid panel [AGGREGATE] *Lipid Profile [facility] Start: 04-27-2017 End: 05-07-2017 Mammogram, screening Mammogram, Screening, both breasts [facility] Start: 02-27-2016 BONE DENSITY BONE DENSITY [facility] Start: 11-13-2014 End: 11-17-2014 Follow Up Appt 2 weeks Follow Up Appt 2 weeks [facility] Work Phone: Start: 11-13-2014 End: 11-17-2014 Follow Up Appt 2 weeks Follow Up Appt 2 weeks [facility] Start: 10-13-2014 End: 11-02-2014 Follow Up Appt Other Follow Up Appt Other [facility] Work Phone: Start: 10-13-2014 End: 11-02-2014 Follow Up Appt Other Follow Up Appt Other [facility] Start: 11-14-2013 Mammography MAMMOGRAM [facility] Start: 2001 Influenza vaccination LUNG CANCER SCREENING [facility] Start: 2001 SHINGRIX VACCINE (1 of 2) SHINGRIX VACCINE (1 of 2) [facility] Start: 02-27-1996 COLOGUARD (FIT-DNA) COLOGUARD (FIT-DNA) [facility] Start: 02-27-[address] COLONOGRAPHY [facility] Start: 02-27-1996 DIABETES SCREEN DIABETES SCREEN [facility] Start: 02-27-1996 FECAL OCCULT BLOOD FECAL OCCULT BLOOD [facility] Start: 02-27-1996 LIPID SCREEN LIPID SCREEN [facility] Start: 02-27-1996 SIGMOIDOSCOPY SIGMOIDOSCOPY [facility] Start: 1970 SHINGRIX VACCINE (1 of 2) SHINGRIX VACCINE (1 of 2) [facility] Start: 1970 Urine microalbumin profile DTAP,TDAP,TD (1 - Tdap) [facility] Start: 1969 HEPATITIS C SCREENING HEPATITIS C SCREENING [facility] Start: 1963 Adult depression screening assessment DEPRESSION SCREENING [facility] Start: 1957 PNEUMOCOCCAL: 65+ (1 - PCV) PNEUMOCOCCAL: 65+ (1 - PCV) [facility] End: 03-24-2023 EGD DIAGNOSTIC EGD DIAGNOSTIC Endoscopy Routine Dysphagia, unspecified type Esophageal polyp 1 Occurrences starting 03/24/2022 until 03/24/2023 [facility] Work Phone: Immunizations Immunization Date Immunization Notes Care Provider Fa juan antonio 08-02-2017 pneumococcal polysaccharide vaccine, 23 valent Moris Cornelius [employer]SM[employer]-[facility] Work Phone: 08-02-2017 Seasonal trivalent influenza vaccine, adjuvanted, preservative free Moris Cornelius [employer] [facility] Work Phone: 08-02-2017 [id number] Moris Cornelius M[employer]EL CRAFTSMAN-C [facility] Work Phone: 04-27-2017 varicella virus vaccine Moris Kiran KNUCKLE STRAP SEWER-C [facility] Work Phone: 04-27-2017 varicella virus vaccine Kanchan Grider MD [facility] Payers Date Payer Category Payer Medicare [employer] O SNP [id number] 2022-Present [phone] [address] [place] [address] O [id number] 2001 Medicaid MEDICAID [facility] MEDICAID [id number] 2001-Present [phone] [address] [place] [address] Medicaid [id number] Social History Date Type Detail [facility] History of tobacco use Cigarette Smoker [facility] Start: 03-13-2022 End: 04-13-2022 Alcohol intake Current drinker of alcohol (finding) [facility] Start: 1950 Sex Assigned At Not on file [facility] Start: 03-03-2022 End: 04-13-2022 Exposure to SARS-CoV-2 (event) Not sure [facility] Clinical Notes 05-31-2021 to 04-19-2022 Telephone [...] recall letter generated. documented in this encounter [facility] 04-13-2022 Note HNO ID: [id number] Author: Deann Le RN Service: ? Author Type: Registered Nurse Type: Nursing Progress Note Filed: 04/13/2022 12:00 PM Note Text: Patient passing large amounts of air rectally. [facility] 04-13-2022 History and physical note Images [...] surgery. She was seen in interim by utility porter Dr. Thornton in [place], notes reviewed. Colonoscopy was recommended. Patient stated she had scheduled this with Dr. Thornton's office but decided she wanted this sooner than what was offered, and with Dr. Main as she has been seen by him previously. Patient had a recent CT scan done through [facility] 02/27/22 which showed soft tissue swelling [...] EVERY MORNING February 11, 2018 Active 02-11-2018 [facility] ([id number]) amLODIPine (NORVASC) 10 mg tablet Take 10 [...] A DAY April 13, 2020 8:42am 04-13-2020 [facility] ([id number]) (Patient not taking: Reported on 05/30/2021) lidocaine (XYLOCAINE) 4 % (40 mg/mL) external solution 1 mL. (Patient not taking: Reported on 05/30/2021 ) lidocaine-prilocaine (EMLA) 2.5-2.5 % cream Lidocaine / Prilocaine Lidocaine/Prilocaine (Lidocaine-Prilocaine Cream) 30 GM cream Active 1 APPLIC TP DAILY NEEDED 11 20September 22, 2020 1:40pm 09-22-2020 [facility] ([id number]) (Patient not taking: Reported on 05/30/2021) loperamide (IMODIUM) 2 mg cap(s) Loperamide Loperamide (Imodium) 2 MG capsule Active 2 MG PO EVERY 2 HOURS NEEDED 20 08September 22, 2020 1:48pm Take 2 pills with the first loose stool, then 1 pill after each loose stool thereafter. 09-17-2020 [facility] ([id number]) (Patient not taking: Reported on 05/30/2021) ondansetron orally disintegrating (ZOFRAN ODT) 4 mg disintegrating tablet Ondansetron Ondansetron (Zofran Odt) 4 MG tablet Active 4 MG PO EVERY 8 HOURS NEEDED 20 08September 22, 2020 1:40pm 09-22-2020 [facility] ([id number]) (Patient not taking: Reported on 05/30/2021) oxyCODONE-acetaminophen (PERCOCET) 5-325 mg tablet TAKE 1 TABLET TWICE DAILY for 7 days, as needed. (Patient not taking: TAKE 1 TABLET TWICE DAILY for 7 days, as needed.) SSD 1 % cream APPLY TO THE AFFECTED AREA(S) THREE TIMES DAILY (Patient not taking: Reported on 05/30/2021) FOLIC ACID/MULTIVIT,IRON,LACTATION SPECIALIST (CENTRUM ORAL) Take by mouth once daily. [...] entered by the nurse and reviewed by ny Nursing Notes: Galilea Villarreal LPN 03/13/2022 9:39 [...] patient was offered a surgery/procedure at a [facility] facility. I have counseled the patient [...] which included preparing to see the patient, [id number] patient care, completing clinical documentation, obtaining and/or [...] TIME: 10:53 AM documented in this encounter [facility] 04-13-2022 Nurse Note Patient passing large amounts of air rectally. Patient received in PACU, on left side, eyes closed, arouses to verbal stimuli, abdomen soft, non distended, denies pain or nausea, respirations regular and unlabored. documented in this encounter [facility] 03-27-2022 Miscellaneous Notes Patient contacted and scheduled with Dr. Main on 04/13. Patient stated she has the instructions for her bowel prep. Isabella Quiroga PSS 1st attempt to reach patient to schedule upper and lower scopes at [facility] with Dr. Main per Haydee Roberts. LV to call me directly at [phone] to proceed with scheduling. Orders are [place] documented in this encounter [facility] 03-13-2022 Note HNO ID: [id number] Author: Haydee Roberts PA-C Service: ? Author Type: Physician Cardiovascular Surgical Tech Type: Progress Notes Filed: 03/24/2022 1:53 PM [...] surgery. She was seen in interim by utility porter Dr. Thornton in [place], notes reviewed. Colonoscopy was recommended. Patient stated she had scheduled this with Dr. Thornton's office but decided she wanted this sooner than what was offered, and with Dr. Main as she has been seen by him previously. Patient had a recent CT scan done through [facility] 02/27/22 which showed soft tissue swelling [...] EVERY MORNING February 11, 2018 Active 02-11-2018 [facility] ([id number]) - amLODIPine (NORVASC) 10 mg tablet Take [...] A DAY April 13, 2020 8:42am 04-13-2020 [facility] ([id number]) (Patient not taking: Reported on 05/30/2021) - lidocaine (XYLOCAINE) 4 % (40 mg/mL) external solution 1 mL. (Patient not taking: Reported on 05/30/2021 ) - lidocaine-prilocaine (EMLA) 2.5-2.5 % cream Lidocaine / Prilocaine Lidocaine/Prilocaine (Lidocaine-Prilocaine Cream) 30 GM cream Active 1 APPLIC TP DAILY NEEDED 11 20September 22, 2020 1:40pm 09-22-2020 [facility] ([id number]) (Patient not taking: Reported on 05/30/2021) - loperamide (IMODIUM) 2 mg cap(s) Loperamide Loperamide (Imodium) 2 MG capsule Active 2 MG PO EVERY 2 HOURS NEEDED 20 08September 22, 2020 1:48pm Take 2 pills with the first loose stool, then 1 pill after each loose stool thereafter. 09-17-2020 [facility] (more content not included)... [facility] 03-13-2022 History of Present illness Narrative [...] surgery. She was seen in interim by utility porter Dr. Thornton in [place], notes reviewed. Colonoscopy was recommended. Patient stated she had scheduled this with Dr. Thornton's office but decided she wanted this sooner than what was offered, and with Dr. Main as she has been seen by him previously. Patient had a recent CT scan done through [facility] 02/27/22 which showed soft tissue swelling [...] EVERY MORNING February 11, 2018 Active 02-11-2018 [facility] ([id number]) amLODIPine (NORVASC) 10 mg tablet Take 10 [...] A DAY April 13, 2020 8:42am 04-13-2020 [facility] ([id number]) (Patient not taking: Reported on 05/30/2021) lidocaine (XYLOCAINE) 4 % (40 mg/mL) external solution 1 mL. (Patient not taking: Reported on 05/30/2021 ) lidocaine-prilocaine (EMLA) 2.5-2.5 % cream Lidocaine / Prilocaine Lidocaine/Prilocaine (Lidocaine-Prilocaine Cream) 30 GM cream Active 1 APPLIC TP DAILY NEEDED 11 20September 22, 2020 1:40pm 09-22-2020 [facility] ([id number]) (Patient not taking: Reported on 05/30/2021) loperamide (IMODIUM) 2 mg cap(s) Loperamide Loperamide (Imodium) 2 MG capsule Active 2 MG PO EVERY 2 HOURS NEEDED 20 08September 22, 2020 1:48pm Take 2 pills with the first loose stool, then 1 pill after each loose stool thereafter. 09-17-2020 [facility] ([id number]) (Patient not taking: Reported on 05/30/2021) ondansetron orally disintegrating (ZOFRAN ODT) 4 mg disintegrating tablet Ondansetron Ondansetron (Zofran Odt) 4 MG tablet Active 4 MG PO EVERY 8 HOURS NEEDED 20 08September 22, 2020 1:40pm 09-22-2020 [facility] ([id number]) (Patient not taking: Reported on 05/30/2021) oxyCODONE-acetaminophen (PERCOCET) 5-325 mg tablet TAKE 1 TABLET TWICE DAILY for 7 days, as needed. (Patient not taking: TAKE 1 TABLET TWICE DAILY for 7 days, as needed.) SSD 1 % cream APPLY TO THE AFFECTED AREA(S) THREE TIMES DAILY (Patient not taking: Reported on 05/30/2021) FOLIC ACID/MULTIVIT,IRON,LACTATION SPECIALIST (CENTRUM ORAL) Take by mouth once daily. [...] entered by the nurse and reviewed by ny Nursing Notes: Galilea Villarreal LPN 03/13/2022 9:39 [...] patient was offered a surgery/procedure at a [facility] facility. I have counseled the patient [...] which included preparing to see the patient, [id number] patient care, completing clinical documentation, obtaining and/or reviewing separately obtained history, performing a medically appropriate examination, counseling and educating the patient/family/caregiver, ordering medications, tests, or procedures, communicating with other HCPs (not separately reported) and care coordination (not separately reported). Haydee Roberts PA-C documented in this encounter [facility] 03-13-2022 Nurse Note REVIEW OF SYSTEMS: [...] Galilea Villarreal LPN documented in this encounter [facility] 12-05-2021 Note HNO ID: [id number] Author: Mykel Main MD Service: ? Author [...] her to colorectal surgery for endorectal ultrasound. [facility] 06-11-2021 Note HNO ID: [id number] Author: Mykel Main MD Service: ? Author [...] exam was performed showing no firm areas. [facility] 06-11-2021 Note HNO ID: [id number] Author: Mykel Main MD Service: ? Author Type: Physician Type: Progress Notes Filed: 06/11/2021 11:48 AM Note Text: FOLLOW UP VISIT - PORTACATH REMOVAL NAME: Inna Vidal 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 The patient needed residential IV access. A right portacath was placed. [...] me as needed. Mykel Main III, MD [facility] 06-07-2021 Note HNO ID: [id number] Author: Genia Layton LPN Service: ? Author [...] procedures): No specimen collected. Genia Layton LPN [facility] 05-31-2021 Note HNO ID: [id number] Author: Mykel Main MD Service: ? Author [...] not want to have that done today. 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, except scrotum Dysphagia, unspecified type Esophageal polyp Other specified disorder of the esophagus [facility] (narrative)* Outpatient Procedure (Routine) - Authorized Specialty Diagnoses / Procedures Referred By Ekaterina laonso Referred To Contact [facility] Diagnoses Dysphagia, unspecified type Esophageal polyp Procedures EGD DIAGNOSTIC ESOPHAGOGASTRODUODENOSC OPY TRANSORAL DIAGNOSTIC Mykel Main MD [address] [place] [address] [address] Referral ID Status Reason Start Date Expiration Date Visits Requested Visits Authorized [id number] Authorized Auto-Generat ed Referral 03/24/2022 03/24/2023 1 1 * Outpatient Procedure (Routine) - Authorized Specialty Diagnoses / Procedures Referred By Ekaterina alonso Referred To Contact [facility] Diagnoses History of anal cancer Squamous cell carcinoma of perianal region Procedures COLONOSCOPY SCREENING COLONOSCOPY FLX DX W/COLLJ SPEC WHEN PFRMD Mykel Main MD [address] [place] [address] [address] Referral ID Status Reason Start Date Expiration Date Visits Requested Visits Authorized [id number] Authorized Auto-Generat ed Referral 03/24/2022 03/24/2023 1 1 [facility] for referral (narrative)* Outpatient Procedure (Routine) - Closed Specialty Diagnoses / Procedures Referred By Ekaterina alonso Referred To Contact [facility] Diagnoses Dysphagia, unspecified type Esophageal polyp Procedures EGD DIAGNOSTIC ESOPHAGOGASTRODUODENOSC OPY TRANSORAL DIAGNOSTIC Mykel Main MD [address] [place] [address] [address] Referral ID Status Reason Start Date Expiration Date V isits Requested Visits Authorized [id number] Closed Auto-Generate d Referral 03/24/2022 03/24/2023 1 1 * Outpatient Procedure (Routine) - Closed Specialty Diagnoses / Procedures Referred By Ekaterina alonso Referred To Contact [facility] Diagnoses History of anal cancer Squamous cell carcinoma of perianal region Procedures COLONOSCOPY SCREENING COLONOSCOPY FLX DX W/COLLJ SPEC WHEN PFRMD Mykel Main MD [address] [place] [address] [address] Referral ID Status Reason Start Date Expiration Date V isits Requested Visits Authorized [id number] Closed Auto-Generate d Referral 03/24/2022 03/24/2023 1 1 [facility] for visit Narrative* Auth/Cert Specialty Diagnoses / Procedures Referred By Ekaterina alonso Referred To Contact [facility] Diagnoses Personal history of other malignant neoplasm of rectum, rectosigmoid junction, and anus Procedures ESOPHAGOGASTRODUODENOSCOPY TRANSORAL DIAGNOSTIC COLONOSCOPY FLX W/REMOVAL OF FOREIGN BODY(S) [facility] [address] [place] [address] Referral ID Status Reason Start Date Expiration Date Visits Re quested Visits Authorized [id number] 1 1 [facility] Advance Directives No Advanced Directives Records FoundDocuments on File Type Date Recorded Patient It Director Expl anation Advance Directive(s) 10/10/2017 10:00 AM Advance Directive(s) 10/02/2017 12:34 PM Advance Directive(s) 10/05/2016 10:08 AM Advance Directive(s) 09/29/2016 11:36 AM Documents on File Type Date Recorded Patient It Director Expl anation Advance Directive(s) 10/10/2017 10:00 AM Advance Directive(s) 10/02/2017 12:34 PM Advance Directive(s) 10/05/2016 10:08 AM Advance Directive(s) 09/29/2016 11:36 AM Medications Administered Section Inactive Administered Medications - up to 3 most recent administrations Medication Order MAR Action Action Date Dose Rate Site benzocaine 20% 1 [place] (TOPEX) 1 [place], TOPICAL, DIRECTED, Starting on Sujata 04/13/22 at [...] or prosecute any alcohol or drug abuse patient.[facility] the event this information is protected by the Federal Confidentiality of Alcohol and Drug Abuse Patient Records regulations: The Federal rules restrict any use of the information to criminally investigate or prosecute any alcohol or drug abuse patient.[facility] the event this information is protected by the Federal Confidentiality of Alcohol and Drug Abuse Patient Records regulations: The Federal rules restrict any use of the information to criminally investigate or prosecute any alcohol or drug abuse patient.[facility] the event this information is protected by the Federal Confidentiality of Alcohol and Drug Abuse Patient Records regulations: The Federal rules restrict any use of the information to criminally investigate or prosecute any alcohol or drug abuse patient.[facility] Reason for Visit (unrecogniz ed section and content) Specialty Diagnoses / Procedures Referred By Contedson t Referred To Contact Diagnoses Squamous cell cancer, anus (HCC) Procedures CONSULT TO COLO-RECTAL SURGERY OFFICE/OUTPATIENT [facility] 60-74 MINUTES Mykel Main MD [address] [place] [address] French Richards MD [address] [place] [address] Referral ID Status Reason Start Date Expiration Date V isits Requested Visits Authorized [id number] Closed PCP Requested Referral 12/05/2021 12/05/2022 1 1 Reason Comments Procedure Reason Comments Results Care Teams (unrecognized sec tion and content) 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 [facility] [employer] [facility]. provides no warranty or guarantee of the accuracy or completeness of information in this document.
== END | disposition home or self-care (01) ==
LOC: OPBD 12:12
PROVIDERS: PCP Internal Medicine; Referring Provider Internal Medicine; Visit Provider Internal Medicine
DX: Z13.820 Encounter for screening for osteoporosis (principal); Z78.0 Asymptomatic menopausal state
CPT/HCPCS: 77080

== ENCOUNTER → 2024-03-25 | Outpatient (CLI) | payer MEDICARE, MEDICAID, SELFPAY ==
[2020-09-27 10:09] VITALS: BMI 21.7
--- NOTE | 2024-03-25 15:06 | CT_ITS ---
STUDY: LOW DOSE CT LUNG CANCER SCREENING REASON FOR EXAM: Female, 74 years old. Lung cancer screening -- and gt;20 pk yr hx;current smoker;asymptomatic RADIATION DOSAGE (If Supplied By Facility): CTDIvol = ( 1.52 ) mGy, DLP = ( 52.88 ) mGycm TECHNIQUE: No contrast was administered. Low dose technique was utilized (average mAS-38 and kVp 120). 1.25 mm axial source images with a slice interval of 1.25-mm were reconstructed in lung windows. 2.5 mm axial source images with a slice interval of 2.5-mm were reconstructed in lung windows. 5.0 mm axial source images with a slice interval of 5.0-mm were reconstructed in soft tissue windows. COMPARISON: Comparison is made with prior study dated September 27, 2023. NODULES: There is a new 3 mm x 5 mm nodular density in the left upper lobe as seen on axial image #65 and coronal image #67. Emphysema: Mild linear scarring at the lung bases. Endobronchial lesion: None Aorta: Atherosclerotic plaque formation of the aortic arch. CORONARY ARTERIES: Coronary artery calcification is seen. Heart: Unremarkable Pulmonary artery: Unremarkable Mediastinal nodes: Other chest and abdominal findings: CT/Low Dose CT Lung Screening IMPRESSION: Lung-RADS category 4B - Chest CT with or without contrast, PET/CT and/or tissue sampling can be obtained depending on the probability of malignancy and comorbidities. IMPORTANT NOTES FOR USE: ACR Lung-RADS Version 1.1 Assessment Categories Release Date: 2018 Category: Coded 0-4 bases on nodule(s) with highest degree of suspicion. Negative screen is defined as categories 1 and 2; a positive screen is defined as categories 3 and 4. Category 3 and 4A nodules that are unchanged on interval CT should be coded as category 2, and individuals returned to screening in 12 months. Category 4X: Category 3 or 4 nodules with additional imaging findings that increase the suspicion of lung cancer, such as spiculation, GGN that doubles in size in 1 year, enlarged lymph notes, etc. Category Modifiers: S (significant finding unrelated to lung cancer) Electronically Signed: Jorge Pollard MD at 15:28 EDT ,
== END | disposition home or self-care (01) ==
LOC: CT 15:05
PROVIDERS: PCP Internal Medicine; Referring Provider Nurse Practitioner Family; Visit Provider Nurse Practitioner Family
DX: Z87.891 Personal history of nicotine dependence (principal); Z12.2 Encounter for screening for malignant neoplasm of respiratory organs
CPT/HCPCS: 71271

== ENCOUNTER → 2024-07-16 | Outpatient (CLI) | payer MEDICARE, MEDICAID, SELFPAY ==
[2020-09-27 10:09] VITALS: BMI 21.7
[2024-07-16 15:39] LABS: Cholesterol 248 mg/dL (200); High Density Lipoprotein 73 mg/dL; Triglycerides 245 mg/dL; Very Low Density Lipoprotein 49 mg/dL (5-40)
== END | disposition home or self-care (01) ==
LOC: BIMLAB 11:50
PROVIDERS: PCP Internal Medicine; Referring Provider Internal Medicine; Visit Provider Internal Medicine
DX: I10 Essential (primary) hypertension (principal)
CPT/HCPCS: 36415; 80061

== ENCOUNTER → 2024-08-18 | Outpatient (CLI) | payer MEDICARE, MEDICAID, SELFPAY ==
[2020-09-27 10:09] VITALS: BMI 21.7
--- NOTE | 2024-08-18 15:35 | RAD_ITS ---
INDICATION: SPONDYLOSIS LUMBAR EXAMINATION/TECHNIQUE: X-RAY - XR Spine Lumbar 2 or 3 Views COMPARISON: Lumbar spine radiographs 07/15/2019. FINDINGS: 3 views of the lumbar spine. BONES: Thoracolumbar level levoscoliosis again noted. Otherwise, anatomic alignment without evidence of fracture or subluxation. No concerning bony lesion or abnormal sclerosis to suggest lesion. DISCS/JOINTS: Moderate to severe multilevel degenerative change. SOFT TISSUES: Dense aortoiliac atherosclerotic vascular calcifications. RAD/Lumbar Spine 2 or 3 Views IMPRESSION: Thoracolumbar level levoscoliosis again noted with stable multilevel degenerative change. If there is persistent clinical concern for spine fracture and this is a trauma patient, recommend dedicated lumbar spine CT. Electronically Signed: Rio Helm MD at 4:58 EDT ,
--- OUTSIDE RECORDS SUMMARY | 2024-08-18 19:32 | XMS RPT_ITS | CCD ---
Author Organization [facility] Care Team Providers Care Corn Husker Name Role Phone Adryan Moris PEPE Unavailable Unavailable Mary Alvarenga Unavailable Unavailable Bernard Grider MD Unavailable Bernard Grider MD Unavailable Bernard Grider MD Unavailable Mary Alvarenga Unavailable Unavailable Mary Alvarenga Unavailable Unavailable Bernard Grider MD Primary Care Provider Allergies Allergy Classification Reported Allergen(s) Allergy Type Date of Onset Reaction(s) Facility (5 sources) CHOLESTEROL MEDICINE, UNURE WHICH drug allergy 06-08-2017 [place] like she was having a heart attack [facility] Work Phone: (4 sources) Simvastatin Drug Allergy 08-19-2007 [facility] Work Phone: Medications Current Medications Medication Drug Class(es) Dates Sig (Normalized) Sig (Original) polyethylene glycol 3350 925319 mg / potassium chloride 2970 mg / sodium bicarbonate 6740 mg / sodium chloride 5860 mg / sodium sulfate 08873 mg powder for oral solution (1 source) Osmotic Laxative Start: 03-24-2022 End: 03-24-2022 peg 3350-Electrolytes (GOLYTELY) 236-22.74-6.74 -5.86 gram suspension Take 4,000 mL by mouth one time only for 1 dose. 1 Each 0 03/24/2022 03/24/2022 Active Comment on above: Take 4,000 mL by samina th one time only for 1 dose. Completed/Discontinued Medications Medication Drug Class(es) Dates Sig (Normalized) Sig (Original) acetaminophen 325 mg / HYDROcodone bitartrate 5 mg oral tablet (10 sources) Opioid Agonist Start: 04-27-2017 HYDROCODONE-ACETAMI NOPHEN 5-325 MG TABS 1 tablet Q12PRN HYDROCODONE-ACETAMI NOPHEN [id number] Bernard Grider MD acetaminophen 325 mg / oxyCODONE hydrochloride 5 mg oral tablet (20 sources) Opioid Agonist Start: 12-23-2020 oxyCODONE-acetamino phen (PERCOCET) 5-325 mg tablet TAKE 1 TABLET TWICE DAILY for 7 days, as needed. 0 12/23/2020 Active Start: 11-05-2014 End: 11-13-2014 take 1-2 tablets by mouth four times daily as needed for pain PERCOCET 5-325 MG TABS one to two tablet s by mouth four times daily as needed for pain OXYCODONE-ACETAMINOPHEN [id number] Glenn Cameron MD Start: 11-05-2014 take 1-2 tablets by mouth four times daily as needed for pain PERCOCET 5-325 MG TABS one to two tablet s by mouth four times daily as needed for pain OXYCODONE-ACETAMINOPHEN [id number] Glenn Cameron MD Start: 11-05-2014 End: 11-13-2014 take 1-2 tablets by mouth four times daily as needed for pain PERCOCET 5-325 MG TABS one to two tablet s by mouth four times daily as needed for pain OXYCODONE-ACETAMINOPHEN [id number] Brisa Lugo LPN Comment on above: TAKE 1 TABLET TWICE DAILY for 7 days, as needed. ALBUTEROL SULFATE AERS (20 sources) beta2-Adrenergic Agonist Start: 04-27-2017 VENTOLIN HFA AERS ALBUTEROL SULFATE AERS [id number] Bernard Grider MD Start: 04-27-2017 VENTOLIN HFA A ERS ALBUTEROL SULFATE AERS [id number] Bernard Grider MD Start: 08-19-2007 albuterol (PRO AIR HFA) 90 mcg/Actuation INHALATION HFAA use as directed 0 08/19/2007 Active take 2 puff(s) by in halation once daily ALBUTEROL SULFATE (VENTOLIN INHALATION) Inhale 2 Puffs as instructed once daily. 0 Active PROAIR HFA AERS 1 time daily ALBUTEROL SULFATE AERS [id number] Brisa Lugo LPN PROAIR HFA AERS 1 time daily ALBUTEROL SULFATE AERS [id number] Brisa Lugo LPN Comment on above: use as directed Inhale 2 Puffs as in structed once daily. amLODIPine 10 mg oral tablet (9 sources) Dihydropyridine Calcium Channel Sandhya Start: take 1 tablet by mouth once daily amLODIPine (NORVASC) 10 mg tablet Take 10 mg by mouth once daily. 0 01/07/2021 Active Start: 06-08-2017 AMLODIPINE BES YLATE 10 MG TABS Take 1 tablet daily AMLODIPINE BESYLATE [id number] Moris PEPE Comment on above: Take 10 mg by mouth once daily. BLOOD PRESSURE MONITORING (2 sources) Start: 06-08-2017 BLOOD PRESSURE KIT Daily blood pressure checks for hypertension BLOOD PRESSURE MONITORING [id number] Bernard Grider MD BLOOD PRESSURE MONITORING (5 sources) Start: 06-08-2017 BLOOD PRESSURE KIT Daily blood pressure checks for hypertension I10 BLOOD PRESSURE MONITORING [id number] Moris PEPE Start: 06-08-2017 BLOOD PRESSURE KIT Daily blood pressure checks for hypertension BLOOD PRESSURE MONITORING [id number] Bernard Grider MD Start: 06-08-2017 BLOOD PRESSURE KIT Daily blood pressure checks for hypertension BLOOD PRESSURE MONITORING [id number] Bernard Grider MD clindamycin 300 mg oral capsule (20 sources) Lincosamide Antibacterial Start: 11-05-2014 End: 11-13-2014 take 1 tablet by mouth three times daily CLEOCIN 300 MG CAPS One tablet by mouth three times daily CLINDAMYCIN HCL [id number] Glenn Cameron MD esomeprazole 40 mg delayed release oral capsule (20 sources) Proton Pump Inhibitor End: 04-27-2017 NEXIUM 40 MG CPDR 1 daily ESOMEPRAZOLE MAGNESIUM [id number] Brisa Lugo LPN End: 04-27-2017 NEXIUM 40 MG CPDR 1 daily 20 07/05/07 ESOMEPRAZOLE MAGNESIUM [id number] Bernard Grider MD 72 hr fentaNYL 0.012 mg/hr transdermal system (4 sources) Opioid Agonist Start: 10-12-2020 fentaNYL (DURA GESIC) 12 mcg/hr pt72 Apply 1 patch to skin every 72 hours. Remove old patch. 0 10/12/2020 Active Comment on above: Apply 1 patch to ski n every 72 hours. Remove old patch. FOLIC ACID/MULTIVIT,IRON,MIN ER (CENTRUM ORAL) (4 sources) FOLIC ACID/MULTIVIT,IRON,FL NER (CENTRUM ORAL) Take by mouth once daily. 0 Active Comment on above: Take by mouth once d aily. hydrocortisone acetate 25 mg rectal suppository (4 sources) Corticosteroid Start: 04-13-2020 hydrocortisone (HEMORRHOIDAL HC) 25 mg suppository Hydrocortisone Hydrocortisone Acetate Active 25 MG RC TWICE A DAY 14 April 13, 2020 8:42am 04-13-2020 [facility] ([id number]) 0 04/13/2020 Active Comment on above: Hydrocortisone [place] cortisone Acetate Active 25 MG RC TWICE A DAY 14 April 13, 2020 8:42am 04-13-2020 [facility] ([id number]) HYPERTENSION MEDICATION (20 sources) Start: 10-13-2014 HYPERTENSION MEDICATION HYPERTENSION MEDICATION Glenn Cameron MD Start: 10-13-2014 End: 11-13-2014 HYPERTENSION MEDICATION 2013 HYPERTENSION MEDICATION Brisa Lugo LPN Start: 10-13-2014 HYPERTENSION M EDICATION HYPERTENSION MEDICATION Glenn Cameron MD Start: 10-13-2014 End: 11-13-2014 HYPERTENSION MEDICATION 2013 HYPERTENSION MEDICATION Brisa Lugo LPN imiquimod 50 mg/ml topical cream (20 sources) Start: 11-30-2014 End: 04-27-2017 ALDARA 5 % CREA apply daily at night 5 days per week for 6 weeks IMIQUIMOD [id number] Glenn Cameron MD Start: 11-30-2014 ALDARA 5 % CRE A apply daily at night 5 days per week for 6 weeks IMIQUIMOD [id number] Glenn Cameron MD Start: 11-30-2014 End: 04-27-2017 ALDARA 5 % CREA apply daily at night 5 days per week for 6 weeks IMIQUIMOD [id number] Bernard Grider MD Lactobacillus (20 sources) Start: 11-05-2014 End: 11-13-2014 take 1 tablet by mouth twice daily ACIDOPHILUS PROBIOTIC TABS One tablet by mouth twice daily LACTOBACILLUS [id number] Brisa L Lugo KEY PUNCH TEACHER Start: 11-05-2014 take 1 tablet by samina th twice daily ACIDOPHILUS PROBIOTIC TABS One tablet by mouth twice daily LACTOBACILLUS [id number] Glenn Cameron MD Start: 11-05-2014 take 1 tablet by samina th twice daily ACIDOPHILUS PROBIOTIC TABS One tablet by mouth twice daily LACTOBACILLUS [id number] Glenn Cameron MD Start: 11-05-2014 End: 11-13-2014 take 1 tablet by mouth twice daily ACIDOPHILUS PROBIOTIC TABS One tablet by mouth twice daily LACTOBACILLUS [id number] Brisa Per Richardsonon [employer] PUNCH TEACHER lidocaine hydrochloride 40 mg/ml mucous membrane topical solution (4 sources) Antiarrhythmic, Amide Local Anesthetic Start: 10-27-2020 lidocaine (XYLOCAINE ) 4 % (40 mg/mL) external solution 1 mL. 0 10/27/2020 Active Comment on above: 1 mL. lidocaine 25 mg/ml / prilocaine 25 mg/ml topical cream (4 sources) Antiarrhythmic, Amide Local Anesthetic Start: 09-22-2020 lidocaine-prilocaine (EMLA) 2.5-2.5 % cream Lidocaine / Prilocaine Lidocaine/Prilocaine (Lidocaine-Prilocaine Cream) 30 GM cream Active 1 APPLIC TP DAILY NEEDED 11 20September 22, 2020 1:40pm 09-22-2020 [facility] ([id number]) 0 09/22/2020 Active Comment on above: Lidocaine / Prilocai ne Lidocaine/Prilocaine (Lidocaine-Prilocaine Cream) 30 GM cream Active 1 APPLIC TP DAILY NEEDED 11 20September 22, 2020 1:40pm 09-22-2020 [facility] ([id number]) loperamide hydrochloride 2 mg oral capsule (4 sources) Opioid Agonist Start: 09-17-2020 loperamide (IM ODIUM) 2 mg cap(s) Loperamide Loperamide (Imodium) 2 MG capsule Active 2 MG PO EVERY 2 HOURS NEEDED 30 September 22, 2020 1:48pm Take 2 pills with the first loose stool, then 1 pill after each loose stool thereafter. 09-17-2020 [facility] ([id number]) 0 09/17/2020 Active Comment on above: Loperamide Loperamid e (Imodium) 2 MG capsule Active 2 MG PO EVERY 2 HOURS NEEDED 30 September 22, 2020 1:48pm Take 2 pills with the first loose stool, then 1 pill after each loose stool thereafter. 09-17-2020 [facility] ([id number]) Multivitamin capsule (4 sources) Start: 02-11-2018 Multivitamin c apsule multivitamin capsule multivitamin capsule 1 CAP PO EVERY MORNING February 11, 2018 Active 02-11-2018 [facility] ([id number]) 0 02/11/2018 Active Comment on above: multivitamin capsule multivitamin capsule 1 CAP PO EVERY MORNING February 11, 2018 Active 02-11-2018 [facility] ([id number]) ondansetron 4 mg disintegrating oral tablet (4 sources) Serotonin-3 Receptor Antagonist Start: 09-22-2020 ondansetron orally disintegrating (ZOFRAN ODT) 4 mg disintegrating tablet Ondansetron Ondansetron (Zofran Odt) 4 MG tablet Active 4 MG PO EVERY 8 HOURS NEEDED 30 September 22, 2020 1:40pm 09-22-2020 [facility] ([id number]) 0 09/22/2020 Active Comment on above: Ondansetron Ondanset ravin (Zofran Odt) 4 MG tablet Active 4 MG PO EVERY 8 HOURS NEEDED 30 September 22, 2020 1:40pm 09-22-2020 [facility] ([id number]) silver sulfADIAZINE 10 mg/ml topical cream (4 sources) Sulfonamide Antibacterial Start: 11-17-2020 SSD 1 % cream APPLY TO THE AFFECTED AREA(S) THREE TIMES DAILY 0 11/17/2020 Active Comment on above: APPLY TO THE AFFECTE D AREA(S) THREE TIMES DAILY Problems Active Problems Problem Classification Problem Date [...] Results Test Name Value Interpretation Reference Range Facility [facility] 04-19-2022 [facility] Telephone (GENSWS) GRAHAMINNA ([id number]) 1950 F Date Time Provider Department 04/19/22 MARIANELA ROBERTS During your visit today, we recorded the following information about you: Marianela Roberts PA-C 04/19/2022 1:30 PM Signed Patient called in inquiring about endoscopy results. [...] time. HM updated and recall letter generated. Allergies As of Date: 04/19/2022 Noted Allergy Reaction ZOCOR (SIMVASTATIN) 08/19/2007 Comments: myalgia Date Reviewed: 04/13/2022 Reviewed by: Deann Le RN - Fully Assessed Reason for Visit: Results [95] Prescriptions as of 04/19/2022 - Multivitamin capsule multivitamin capsule multivitamin capsule 1 CAP PO EVERY MORNING February 11, 2018 Active 02-11-2018 [facility] ([id number]) - amLODIPine (NORVASC) 10 mg tablet Take 10 mg by mouth once daily. - fentaNYL (DURAGESIC) 12 mcg/hr pt72 Apply 1 patch to skin every 72 hours. Remove old patch. - hydrocortisone (HEMORRHOIDAL HC) 25 mg suppository Hydrocortisone Hydrocortisone Acetate Active 25 MG RC TWICE A DAY April 13, 2020 8:42am 04-13-2020 [facility] ([id number]) - lidocaine (XYLOCAINE) 4 % (40 mg/mL) external solution 1 mL. - lidocaine-prilocaine (EMLA) 2.5-2.5 % cream Lidocaine / Prilocaine Lidocaine/Prilocaine (Lidocaine-Prilocaine Cream) 30 GM cream Active 1 APPLIC TP DAILY NEEDED 11 20September 22, 2020 1:40pm 09-22-2020 [facility] ([id number]) - loperamide (IMODIUM) 2 mg cap(s) Loperamide Loperamide (Imodium) 2 MG capsule Active 2 MG PO EVERY 2 HOURS NEEDED 20 08September 22, 2020 1:48pm Take 2 pills with the first loose stool, then 1 pill after each loose stool thereafter. 09-17-2020 [facility] ([id number]) - ondansetron orally disintegrating (ZOFRAN ODT) 4 mg disintegrating tablet Ondansetron Ondansetron (Zofran Odt) 4 MG tablet Active 4 MG PO EVERY 8 HOURS NEEDED 20 08September 22, 2020 1:40pm 09-22-2020 [facility] ([id number]) - oxyCODONE-acetaminophen (PERCOCET) 5-325 mg tablet TAKE 1 TABLET TWICE DAILY for 7 days, as needed. - SSD 1 % cream APPLY TO THE AFFECTED AREA(S) THREE TIMES DAILY - FOLIC ACID/MULTIVIT,IRON,WATER TREATMENT PLANT REPAIRER (CENTRUM ORAL) Take by mouth once daily. - ALBUTEROL SULFATE (VENTOLIN INHALATION) Inhale 2 Puffs as instructed once daily. - albuterol (PROAIR HFA) 90 mcg/Actuation INHALATION HFAA use as directed Problem List As Of Date 04/19/2022 Noted Resolved RECTAL AND ANAL HEMORRHAGE [K62.5] 08/19/2007 BENIGN NEOPLASM LG BOWEL [D12.6] 09/19/2007 Personal History of Colonic Polyps [Z86.010] 07/13/2009 Diverticulosis of Colon (without Mention of Hem*09/23/2009 Elevated blood pressure reading without diagnos*08/13/2017 Encounter Status:Closed by MARIANELA ROBERTS on 04/19/[address] [facility] COLONOSCOPY SCREENINGon 03-23 [facility] Colonoscopyon 04-13-2022 Colonoscopy [facility] Gastrointestinal Endoscopy Patient Name: Inna Stevenson Procedure Date: 04/13/2022 10:59 AM Date of : 1950 Admit Type: Outpatient Age: 72 Gender: Female Note Status: Finalized Procedure: Colonoscopy Indications: High risk colon cancer surveillance: Personal history of anal cancer Providers: Mykel Main MD Patient Profile: This is a 72 year old female. Refer to note in patient chart for documentation of history and physical. Last Colonoscopy: September 2017. Referring Physician: Mykel Main MD (Referring MD) Medicines: Fentanyl 100 micrograms IV, Midazolam 5 mg IV, Diphenhydramine 50 mg IV Complications: No immediate complications. Requesting Provider: Procedure: Pre-Anesthesia Assessment: - Prior to the procedure, a History and Physical was performed, and patient medications and allergies were reviewed. The patient's tolerance of previous anesthesia was also reviewed. The risks and benefits of the procedure and the sedation options and risks were discussed with the patient. All questions were answered, and informed consent was obtained. Prior Anticoagulants: The patient has taken no previous anticoagulant or antiplatelet agents. ASA Grade Assessment: II - A patient with mild systemic disease. After reviewing the risks and benefits, the patient was deemed in satisfactory condition to undergo the procedure. After I obtained informed consent, the scope was passed under direct vision. Throughout the procedure, the patient's blood pressure, pulse, and oxygen saturations were monitored continuously. The Colonoscope was introduced through the anus and advanced to the cecum, identified by appendiceal orifice and ileocecal valve. The colonoscopy was performed without difficulty. The patient tolerated the procedure well. The quality of the bowel preparation was good. The appendiceal orifice and the rectum were photographed. Moderate Sedation: The administration of moderate sedation was initiated at 11:17 AM. Findings: The perianal and digital rectal examinations were normal. Pertinent negatives include no anal lesion or abnormality. A diminutive polyp was found in the sigmoid colon. The polyp was sessile. The polyp was removed with a jumbo cold forceps. Resection and retrieval were complete. Multiple small-mouthed diverticula were found in the sigmoid colon. The exam was otherwise without abnormality on direct and retroflexion views. Impression: - One diminutive polyp in the sigmoid colon, removed with a jumbo cold forceps. Resected and retrieved. - Diverticulosis in the sigmoid colon. - The examination was otherwise normal on direct and retroflexion views. Recommendation: - Patient has a contact number available for emergencies. The signs and symptoms of potential delayed complications were discussed with the patient. Return to normal activities tomorrow. Written discharge instructions were provided to the patient. - Resume previous diet. - Continue present medications. - Await pathology results. - Repeat colonoscopy in 3 - 5 years for surveillance. - Return to physician buyer assistant in 1 week. - Resume anticoagulant at prior dose. Procedure Code(s): --- Professional --- 10365, Colonoscopy, flexible; with biopsy, single or multiple Diagnosis Code(s): --- Professional --- Z12.11, Encounter for screening for malignant neoplasm of colon Z85.048, Personal history of other malignant neoplasm of rectum, rectosigmoid junction, and anus K63.5, Polyp of colon K57.30, Diverticulosis of large intestine without perforation or abscess without bleeding CPT copyright 2019 [employer]. All rights reserved. The codes documented in this report are preliminary and upon medicaid billing clerk review may be revised to meet current compliance requirements. Attending Participation: I personally performed the entire procedure. Scope In: 11:26:37 AM Scope Out: 11:43:58 AM MD Mykel Wilson MD 04/13/2022 11:50:14 AM This report has been signed electronically by Mykel Main MD Number of Addenda: 0 Note Initiated On: 04/13/2022 10:59 AM Estimated Blood Loss: Estimated blood loss: none. Normal [facility] EGD DIAGNOSTICon 04-13-2022 [facility] HISTORY PHYSICALon HISTORY PHYSICAL HNO ID: [id number] Author: Mykel Main MD Service: General Surgery Author Type: Physician Type: HANDP Filed: 04/13/2022 10:54 AM Note Text: HISTORY AND PHYSICAL ? Inna Stevenson 1950 ? REFERRING PHYSICIAN: Mykel Main MD ? CHIEF COMPLAINT: Consult (colonoscopy and EGD) ? HPI: The patient is a 72 year old female referred for endoscopy. Inna notes a history of esophageal polyps and anal cancer. Patient is poor historian. Multiple outside records reviewed. She has noted recent dysphagia. Patient denies any change in bowel habits, weight changes, blood in stools, black tarry stools or abdominal pain. ? Patient had followed with Dr. Main in the past. She had anoscopy performed 05/31/21 without concerning findings noted. She has also seen Dr. Main for a port placement. She had office follow up with Dr. Main 12/02/21 with the following noted from that visit: ? 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 ?I placed a Port-A-Cath on her last year [...] soft ? Assessment:Squamous cell cancer, anus (hcc) ?(primary encounter diagnosis) ? Plan: At this juncture we are going to refer her to colorectal surgery for endorectal ultrasound. ? Patient verbalizes understanding of that recommendation but declined to follow up with colorectal surgery. She was seen in interim by pipe line gauger Dr. Thornton in [place], notes reviewed. Colonoscopy was recommended. Patient stated she had scheduled this with Dr. Thornton's office but decided she wanted this sooner than what was offered, and with Dr. Main as she has been seen by him previously. ? Patient had a recent CT scan done through [facility] 02/27/22 which showed soft tissue swelling and prominence of the distal rectum extending into region of anus. ? PAST MEDICAL HISTORY PAST MEDICAL HISTORY Diagnosis Date - Allergic rhinitis, cause unspecified ? - Anal cancer (HCC) ? - Benign neoplasm of colon ? - Chronic obstructive pulmonary disease (COPD) (HCC) ? - Degeneration of intervertebral disc, site unspecified ? - Diverticulosis of colon (without mention of hemorrhage) ? - Hemorrhage of rectum and anus ? - Microcalcifications of the breast ? - Nausea ? - Nonspecific abnormal finding in stool contents ? - Personal history of colonic polyps ? - PMH - PAST MEDICAL HISTORY OF ? ? hx of bronchitis - Unspecified asthma(493.90) ? ? ? PAST SURGICAL HISTORY PAST SURGICAL HISTORY Procedure Laterality Date - BX BREAST PERC VACUUM/ROTN ? 12/03/2012 - COLONOSCOPY ? 10/01/2014 - COLONOSCOPY FLX DX W/COLLJ SPEC WHEN PFRMD ? 10/10/2017 ? Colonoscopy - COLONOSCOPY FLX DX W/COLLJ SPEC WHEN PFRMD ? 02/10/2021 ? - COLONOSCOPY W/BIOPSY SINGLE/MULTIPLE ? 09/23/2009 - COLSC FLX W/RMVL OF TUMOR POLYP LESION SNARE TQ ? 09/19/2007 - EGD TRANSORAL BIOPSY SINGLE/MULTIPLE ? 02/10/2021 ? - ESOPHAGOGASTRODUODENOSCOPY TRANSORAL DIAGNOSTIC ? 10/10/2017 ? EGD - INSJ TUNNELED CTR VAD W/SUBQ PORT AGE 5 YR/> ? 09/2020 - LIG/TRNSXJ FLP TUBE ABDL/VAG APPR UNI/BI ? ? ? Tubal ligation - PAST SURGICAL HISTORY OF ? ? ? carpal tunnel bilateral - PAST SURGICAL HISTORY OF ? 07/04/2007 ? knee surgery left - TONSILLECTOMY PRIMARY/SECONDARY ? Tonsillectomy - TOTAL ABDOMINAL HYSTERECT W/WO RMVL TUBE OVARY ? 2001 ? Hysterectomy, LISET ? ? ? CURRENT MEDICATIONS Current Outpatient Medications Medication Sig - Multivitamin capsule multivitamin capsule multivitamin capsule 1 CAP PO EVERY MORNING February 11, 2018 Active 02-11-2018 [facility] ([id number]) - amLODIPine (NORVASC) 10 mg tablet Take [...] A DAY April 13, 2020 8:42am 04-13-2020 [facility] ([id number]) (Patient not taking: Reported on 05/30/2021) - lidocaine (XYLOCAINE) 4 % (40 mg/mL) external solution 1 mL. (Patient not taking: Reported on 05/30/2021 ) - lidocaine-prilocaine (EMLA) 2.5-2.5 % cream Lidocaine / Prilocaine Lidocaine/Prilocaine (Lidocaine-Prilocaine Cream) 30 GM cream Active 1 APPLIC TP DAILY NEEDED 11 20September 22, 2020 1:40pm 09-22-2020 [facility] ([id number]) (Patient not taking: Reported on 05/30/2021) - loperamide (IMODIUM) 2 mg cap(s) Loperamide Loperamide (Imodium) (more content not included)... [facility] NURSING PROGon 04-13-2022 NURSING PROG HNO ID: [id number] Author: Deann Le RN Service: ? Author Type: Registered Nurse Type: Nursing Progress Note Filed: 04/13/2022 12:00 PM Note Text: Patient received in PACU, on left side, eyes closed, arouses to verbal stimuli, abdomen soft, non distended, denies pain or nausea, respirations regular and unlabored. Normal [facility] SURGICAL PATHOLOGYon [address] [facility] Comment on above: Order Comment: Speci men Type: TISSUE SPECIMENOrdering Facility: [facility] Address: [address] [place] [address] Result Comment: Surg ical Pathology Report Case: [id number] Authorizing Provider: Mykel Main MD Collected: 04/13/2022 11:22 AM Ordering Location: Ambulatory Surgery Received: 04/13/2022 03:01 PM Pathologist: Jamar Torres MD Specimens: A) - ANTRUM (STOMACH) BIOPSY, Antral bx for h pylori B) - SIGMOID COLON POLYP, Sigmoid colon polyp Performed By: #### S ####[facility] LABORATORYCLIA [id number] [address] LABCLIA [id number] [address] FINAL DIAGNOSIS Normal [facility] Comment on above: Order Comment: Speci men Type: TISSUE SPECIMENOrdering Facility: [facility] Address: [address] [place] [address] Result Comment: A. S tomach, biopsy: - Fundic mucosa with no diagnostic alteration. - No evidence of H. pylori. B. Sigmoid colon, polypectomy: - Hyperplastic polyp. Performed By: #### S ####[place] [facility]ORATORYCLIA [id number] [address] LABCLIA [id number] [address] OF [facility] FINAL PERFORMING LAB [facility] Comment on above: Order Comment: Speci men Type: TISSUE SPECIMENOrdering Facility: [facility] Address: [address] [place] [address] Result Comment: Diag nostic interpretation performed at [facility], [address] [facility], [place] [address] CLIA# [id number] Medical Technical Writer: Carolyn Morataya M.D. Performed By: #### S ####[facility] LABORATORYCLIA [id number] [address] LABCLIA [id number] [address] GROSS DESCRIPTION Normal [facility] Comment on above: Order Comment: Speci men Type: TISSUE SPECIMENOrdering Facility: [facility] Address: [address] [place] [address] Result Comment: A. A NTRUM (STOMACH) BIOPSY. Received in formalin is one piece of johnson, soft tissue measuring 1.1 x 0.2 x 0.2 cm. Totally submitted in one cassette. B. SIGMOID COLON POLYP. Received in formalin is one piece of johnson, soft tissue measuring 0.4 x 0.2 x 0.2 cm. Totally submitted in one cassette. Gross examination performed at [facility], [address] [place] [address] TTN 04/13/2022 11:05 PM Performed By: #### S ####[facility]ORATORYCLIA [id number] [address] LABCLIA [id number] [address] OF [place] Upper GI endoscopyon 022 Upper GI endoscopy [facility] Gastrointestinal Endoscopy Patient Name: Inna Stevenson Procedure Date: 04/13/2022 10:59 AM Date of : 1950 Admit Type: Outpatient Age: 72 Gender: Female Note Status: Finalized Procedure: Upper GI endoscopy Indications: Dysphagia Providers: Mykel Main MD Patient Profile: This is a 72 year old female. Refer to note in patient chart for documentation of history and physical. Referring Physician: Mykel Main MD (Referring MD) Medicines: Fentanyl 100 micrograms IV, Midazolam 5 mg IV, Diphenhydramine 50 mg IV, Benzocaine spray Complications: No immediate complications. Estimated blood loss: Minimal. Requesting Provider: Procedure: Pre-Anesthesia Assessment: - Prior to the procedure, a History and Physical was performed, and patient medications and allergies were reviewed. The patient's tolerance of previous anesthesia was also reviewed. The risks and benefits of the procedure and the sedation options and risks were discussed with the patient. All questions were answered, and informed consent was obtained. Prior Anticoagulants: The patient has taken no previous anticoagulant or antiplatelet agents. ASA Grade Assessment: II - A patient with mild systemic disease. After reviewing the risks and benefits, the patient was deemed in satisfactory condition to undergo the procedure. After obtaining informed consent, the endoscope was passed under direct vision. Throughout the procedure, the patient's blood pressure, pulse, and oxygen saturations were monitored continuously. The Endoscope was introduced through the mouth, and advanced to the second part of duodenum. The upper GI endoscopy was accomplished without difficulty. The patient tolerated the procedure well. Moderate Sedation: The administration of moderate sedation was initiated at 11:17 AM. Findings: The Z-line was regular and was found 30 cm from the incisors. No biopsies or other specimens were collected for this exam. The entire examined stomach was normal. Biopsies were taken with a cold forceps for Helicobacter pylori testing. The examined duodenum was normal. No biopsies or other specimens were collected for this exam. Impression: - Z-line regular, 30 cm from the incisors. No specimens collected. - Normal stomach. Biopsied. - Normal examined duodenum. No specimens collected. Recommendation: - Patient has a contact number available for emergencies. The signs and symptoms of potential delayed complications were discussed with the patient. Return to normal activities tomorrow. Written discharge instructions were provided to the patient. - Resume previous diet. - Continue present medications. - Await pathology results. - Repeat upper endoscopy PRN for surveillance. - Return to physician buyer assistant in 1 week. Procedure Code(s): --- Professional --- 05315, Esophagogastroduodenoscopy, flexible, transoral; with biopsy, single or multiple Diagnosis Code(s): --- Professional --- R13.10, Dysphagia, unspecified CPT copyright 2019 [employer]. All rights reserved. The codes documented in this report are preliminary and upon medicaid billing clerk review may be revised to meet current compliance requirements. Attending Participation: I personally performed the entire procedure. Scope In: 11:20:44 AM Scope Out: 11:23:14 AM MD Mykel Wilson MD 04/13/2022 11:46:59 AM This report has been signed electronically by Mykel Main MD Number of Addenda: 0 Note Initiated On: 04/13/2022 10:59 AM Estimated Blood Loss: Estimated blood loss was minimal. Normal [facility] CNPNon 03-24-2022 CNPN Telephone ([employer]) INNA STEVENSON ([id number]) 1950 F Date Time Provider Department 03/24/22 MYKEL MAIN During your visit today, we recorded the following information about you: Lesli Casonond 03/24/2022 4:41 PM Signed 1st attempt to reach patient to schedule upper and lower scopes at [facility] with Dr. Main per Marianela Roberts. LV to call me directly at [phone] to proceed with scheduling. Orders are in the [place] Isabella Quiroga 03/27/2022 12:45 PM Signed Patient contacted and scheduled with Dr. Main on 04/13. Patient stated she has the instructions for her bowel prep. 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 - fentaNYL (DURAGESIC) 12 mcg/hr pt72 Apply 1 patch to skin every 72 hours. Remove old patch. - hydrocortisone (HEMORRHOIDAL HC) 25 mg suppository Hydrocortisone Hydrocortisone Acetate Active 25 MG RC TWICE A DAY April 13, 2020 8:42am 04-13-2020 [facility] ([id number]) - lidocaine (XYLOCAINE) 4 % (40 mg/mL) external solution 1 mL. - lidocaine-prilocaine (EMLA) 2.5-2.5 % cream Lidocaine / Prilocaine Lidocaine/Prilocaine (Lidocaine-Prilocaine Cream) 30 GM cream Active 1 APPLIC TP DAILY NEEDED 11 20September 22, 2020 1:40pm 09-22-2020 [facility] ([id number]) - loperamide (IMODIUM) 2 mg cap(s) Loperamide Loperamide (Imodium) 2 MG capsule Active 2 MG PO EVERY 2 HOURS NEEDED 20 08September 22, 2020 1:48pm Take 2 pills with the first loose stool, then 1 pill after each loose stool thereafter. 09-17-2020 [facility] ([id number]) - ondansetron orally disintegrating (ZOFRAN ODT) 4 mg disintegrating tablet Ondansetron Ondansetron (Zofran Odt) 4 MG tablet Active 4 MG PO EVERY 8 HOURS NEEDED 20 08September 22, 2020 1:40pm 09-22-2020 [facility] ([id number]) - oxyCODONE-acetaminophen (PERCOCET) 5-325 mg tablet TAKE 1 TABLET TWICE DAILY for 7 days, as needed. - SSD 1 % cream APPLY TO THE AFFECTED AREA(S) THREE TIMES DAILY - FOLIC ACID/MULTIVIT,IRON,WATER TREATMENT PLANT REPAIRER (CENTRUM ORAL) Take by mouth once daily. - ALBUTEROL SULFATE (VENTOLIN INHALATION) Inhale 2 Puffs as instructed once daily. - albuterol (PROAIR HFA) 90 mcg/Actuation INHALATION HFAA use as directed Problem List As Of Date 03/24/2022 Noted Resolved RECTAL AND ANAL HEMORRHAGE [K62.5] 08/19/2007 BENIGN NEOPLASM LG BOWEL [D12.6] 09/19/2007 Personal History of Colonic Polyps [Z86.010] 07/13/2009 Diverticulosis of Colon (without Mention of Hem*09/23/2009 Elevated blood pressure reading without diagnos*08/13/2017 Encounter Status:Closed by ISABELLA QUIROGA on 03/27/22 [facility] Mellissa 03-13-2022 CNOV Office Visit (GENSWS ) INNA STEVENSON ([id number]) 1950 F Date Time Provider Department 03/13/22 9:30 AM MARIANELA ROBERTS During your visit today, we recorded the following information about you: Temperature Pulse Blood pressure Weight 97.9 degrees 88/minute 142/78 52.2 kg Height 1.626 m Galilea Villarreal LPN 03/13/2022 9:39 AM Signed [...] last Mammogram screening? 2021 Last Colonoscopy: 2016 JUSTIN Gallagher PA-C 03/24/2022 1:53 PM Signed HISTORY AND PHYSICAL Inna Stevenson 1950 REFERRING PHYSICIAN: Mykel Main MD CHIEF [...] surgery. She was seen in interim by pipe line gauger Dr. Thornton in [place], notes reviewed. Colonoscopy was recommended. Patient stated she had scheduled this with Dr. Thornton's office but decided she wanted this sooner than what was offered, and with Dr. Main as she has been seen by him previously. Patient had a recent CT scan done through [facility] 02/27/22 which showed soft tissue swelling and prominence of the distal rectum extending into region of anus. PAST MEDICAL HISTORY Diagnosis Date - Allergic rhinitis, cause unspecified - Anal cancer (HCC) - Benign neoplasm of colon - Chronic obstructive pulmonary disease (COPD) (HCC) - Degeneration of interverteb (more content not included)... Normal [facility] Cher 12-16-2021 CNPN Telephone ([employer]) INNA STEVENSON ([id number]) 1950 F Date Time Provider Department 12/16/21 MYKEL MAIN During your visit today, we recorded the following information about you: Eunice Mansfield RN 12/16/2021 12:06 PM Signed Referral placed for patient to be seen by a Colorectal surgeon on 12/05/2021, no appointment has been scheduled as of today. Left voicemail at [facility], Dr. Richards's office ([phone]) to please return my call. DONNY Siddiqui RN 12/19/2021 11:[address] Richards's office and scheduled a consultation. Appointment scheduled for January 06, 2022 at 8:30 am at the [place] [facility] office on the 3rd floor. Release of records faxed to [facility] for PET scan images to be pushed into [employer] and the report to be faxed to our office. Fax confirmation sheet received. Called patient to advised that I had the appointment scheduled for her. She advised that she is NOT going to [place] for any testing. She states that she is to have an EGD and colonoscopy completed by Dr. Main. I advised, that per his last note on 12/05/2021, she was to be referred to the colorectal surgeon in [place] and Dr. Main made no reference to any scopes. The patient states that she is to have the scopes completed and then she was told that she will have to have surgery to have a colostomy done (I do not know who told her that). Please advise. DONNY Siddiqui RN 12/28/2021 9:32 AM Signed Placed call to Dr. Froy Decker'sInna's radiation oncologist, office ([phone]) and spoke with Janell, a nurse. Janell advised that Inna is scheduled to see Dr. Thornton, a pipe line gauger at [facility], on 01/27/[address] Richards's office and cancelled Inna's consultation on 01/06/2022 at 0830. DONNY Siddiqui RN 12/30/2021 9:54 AM Signed Spoke with Dr. Jose David, he is aware of Inna's appointments. Inna can follow up as needed. Eunice Mansfield RN Allergies As of Date: 12/16/2021 Noted Allergy Reaction ZOCOR (SIMVASTATIN) 08/19/2007 Comments: myalgia Date Reviewed: 12/02/2021 Reviewed by: Galilea Villarreal LPN - Fully Assessed Reason for Visit: Consult [502] Cmt: Consult to Colorectal surgery Prescriptions as of 12/30/2021 - Multivitamin capsule multivitamin capsule multivitamin capsule 1 CAP PO EVERY MORNING February 11, 2018 Active 02-11-2018 [facility] ([id number]) - amLODIPine (NORVASC) 10 mg tablet Take 10 mg by mouth once daily. - fentaNYL (DURAGESIC) 12 mcg/hr pt72 Apply 1 patch to skin every 72 hours. Remove old patch. - hydrocortisone (HEMORRHOIDAL HC) 25 mg suppository Hydrocortisone Hydrocortisone Acetate Active 25 MG RC TWICE A DAY April 13, 2020 8:42am 04-13-2020 [facility] ([id number]) - lidocaine (XYLOCAINE) 4 % (40 mg/mL) external solution 1 mL. - lidocaine-prilocaine (EMLA) 2.5-2.5 % cream Lidocaine / Prilocaine Lidocaine/Prilocaine (Lidocaine-Prilocaine Cream) 30 GM cream Active 1 APPLIC TP DAILY NEEDED 11 20September 22, 2020 1:40pm 09-22-2020 [facility] ([id number]) - loperamide (IMODIUM) 2 mg cap(s) Loperamide Loperamide (Imodium) 2 MG capsule Active 2 MG PO EVERY 2 HOURS NEEDED 20 08September 22, 2020 1:48pm Take 2 pills with the first loose stool, then 1 pill after each loose stool thereafter. 09-17-2020 [facility] ([id number]) - ondansetron orally disintegrating (ZOFRAN ODT) 4 mg disintegrating tablet Ondansetron Ondansetron (Zofran Odt) 4 MG tablet Active 4 MG PO EVERY 8 HOURS NEEDED 20 08September 22, 2020 1:40pm 09-22-2020 [facility] ([id number]) - oxyCODONE-acetaminophen (PERCOCET) 5-325 mg tablet TAKE 1 TABLET TWICE DAILY for 7 days, as needed. - SSD 1 % cream APPLY TO THE AFFECTED AREA(S) THREE TIMES DAILY - FOLIC ACID/MULTIVIT,IRON,WATER TREATMENT PLANT REPAIRER (CENTRUM ORAL) Take by mouth once daily. - ALBUTEROL SULFATE (VENTOLIN INHALATION) Inhale 2 Puffs as instructed once daily. - albuterol (PROAIR HFA) 90 mcg/Actuation INHALATION HFAA use as directed Problem List As Of Date 12/16/2021 Noted Resolved RECTAL AND ANAL HEMORRHAGE [K62.5] 08/19/2007 BENIGN NEOPLASM LG BOWEL [D12.6] 09/19/2007 Personal History of Colonic Polyps [Z86.010] 07/13/2009 Diverticulosis of Colon (without Mention of Hem*09/23/2009 Elevated blood pressure reading without diagnos*08/13/2017 Encounter Status:Closed by EUNICE MANSFIELD on 12/30/21 [facility] CNOVon 12-02-2021 CNDULCE Office Visit (DIANAS ) INNA STEVENSON ([id number]) 1950 F Date Time Provider Department 12/02/21 10:00 AM MYKEL MAIN During your visit today, we recorded the following information about you: Temperature Pulse Blood pressure Weight 97.8 degrees 89/minute 126/78 51.6 kg Height 1.626 m Mykel Main III, MD 12/05/2021 1:56 PM Signed Subjective: Inna is a patient who I [...] her to colorectal surgery for endorectal ultrasound. 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 - fentaNYL (DURAGESIC) 12 mcg/hr pt72 Apply 1 patch to skin every 72 hours. Remove old patch. - hydrocortisone (HEMORRHOIDAL HC) 25 mg suppository Hydrocortisone Hydrocortisone Acetate Active 25 MG RC TWICE A DAY April 13, 2020 8:42am 04-13-2020 [facility] ([id number]) - lidocaine (XYLOCAINE) 4 % (40 mg/mL) external solution 1 mL. - lidocaine-prilocaine (EMLA) 2.5-2.5 % cream Lidocaine / Prilocaine Lidocaine/Prilocaine (Lidocaine-Prilocaine Cream) 30 GM cream Active 1 APPLIC TP DAILY NEEDED 11 20September 22, 2020 1:40pm 09-22-2020 [facility] ([id number]) - loperamide (IMODIUM) 2 mg cap(s) Loperamide Loperamide (Imodium) 2 MG capsule Active 2 MG PO EVERY 2 HOURS NEEDED 20 08September 22, 2020 1:48pm Take 2 pills with the first loose stool, then 1 pill after each loose stool thereafter. 09-17-2020 [facility] ([id number]) - ondansetron orally disintegrating (ZOFRAN ODT) 4 mg disintegrating tablet Ondansetron Ondansetron (Zofran Odt) 4 MG tablet Active 4 MG PO EVERY 8 HOURS NEEDED 20 08September 22, 2020 1:40pm 09-22-2020 [facility] ([id number]) - oxyCODONE-acetaminophen (PERCOCET) 5-325 mg tablet TAKE 1 TABLET TWICE DAILY for 7 days, as needed. - SSD 1 % cream APPLY TO THE AFFECTED AREA(S) THREE TIMES DAILY - FOLIC ACID/MULTIVIT,IRON,WATER TREATMENT PLANT REPAIRER (CENTRUM ORAL) Take by mouth once daily. - ALBUTEROL SULFATE (VENTOLIN INHALATION) Inhale 2 Puffs as instructed once daily. - albuterol (PROAIR HFA) 90 mcg/Actuation INHALATION HFAA use as directed Problem List As Of Date 12/02/2021 Noted Resolved RECTAL AND ANAL HEMORRHAGE [K62.5] 08/19/2007 BENIGN NEOPLASM LG BOWEL [D12.6] 09/19/2007 Personal History of Colonic Polyps [Z86.010] 07/13/2009 Diverticulosis of Colon (without Mention of Hem*09/23/2009 Elevated blood pressure reading without diagnos*08/13/2017 Encounter Status:Closed by MYKEL MAIN on 12/05/21 [facility] CNOVon 06-07-2021 CNOV Office Visit (GENSWS ) INNA STEVENSON ([id number]) 1950 F Date Time Provider Department 06/07/21 3:50 PM MYKEL MAIN GENSWS During your visit today, we recorded the following information about you: Temperature Pulse Blood pressure Weight 98.8 degrees 94/minute 153/78 49.4 kg Height 1.651 m Genia Layton [employer]CH TEACHER 06/11/2021 11:48 AM Signed UNIVERSAL PROTOCOL / SAFETY CHECKLIST Procedure to [...] EMERGENT procedures): No specimen collected. Genia Layton JUSTIN Genia Layton JUSTIN 06/07/2021 4:21 PM Signed The following instructions are important for you related to your office visit today with the [facility] General Surgeons. Instructions After Port a Cath Removal You can remove the dressing in three days. If the dressing becomes soaked or had significant drainage, the dressing should be changed. If there is minor bleeding from this skin edge, you should hold pressure on the incision until the bleeding stops. If there is continued bleeding, you should contact our office immediately. You do not need to leave a dressing on the wound after two days. If the wound shows signs of redness, inflammation, or purulent drainage, you should contact our office immediately. You should keep the wound dry for the first three days. After that time, you may wash the wound with gentle soap and water. The wound should not be immersed in a pool, bathtub, or even hot tub. If you note any additional difficulties, questions, or concerns, you should contact our office immediately @ [phone] and ask to be transferred to the General Surgery department. Mykel Main III, MD 06/11/2021 11:48 AM Signed FOLLOW UP VISIT - PORTACATH REMOVAL NAME: Inna Stevenson [facility] NO.: [id number] DATE OF SERVICE: 06/07/2021 : 1950 REFERRING PHYSICIAN: Kalpesh Vo MD Inna is a patient I am following for squamous cell cancer of the anus. The patient needed snf IV access. A right portacath was placed. [...] me as needed. Mykel Main III, MD Referring Provider: KALPESH VO [[id number]] Allergies As of Date: 06/07/2021 Noted Allergy Reaction ZOCOR (SIMVASTATIN) 08/19/2007 Comments: myalgia Date Reviewed: 06/07/2021 Reviewed by: Genia Layton LPN - Fully Assessed Reason for Visit: Procedure [88] Cmt: Port Removal Primary Visit Diagnosis:Vascular catheter fitting or adjustment [Z45.2] Prescriptions as of 06/11/2021 - Multivitamin capsule multivitamin capsule multivitamin capsule 1 CAP PO EVERY MORNING February 11, 2018 Active 02-11-2018 [facility] ([id number]) - amLODIPine (NORVASC) 10 mg tablet Take 10 mg by mouth once daily. - fentaNYL (DURAGESIC) 12 mcg/hr pt72 Apply 1 patch to skin every 72 hours. Remove old patch. - hydrocortisone (HEMO (more content not included)... Normal 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 - fentaNYL (DURAGESIC) 12 mcg/hr pt72 Apply 1 patch to skin every 72 hours. Remove old patch. - hydrocortisone (HEMORRHOIDAL HC) 25 mg suppository Hydrocortisone Hydrocortisone Acetate Active 25 MG RC TWICE A DAY April 13, 2020 8:42am 04-13-2020 [facility] ([id number]) - lidocaine (XYLOCAINE) 4 % (40 mg/mL) external solution 1 mL. - lidocaine-prilocaine (EMLA) 2.5-2.5 % cream Lidocaine / Prilocaine Lidocaine/Prilocaine (Lidocaine-Prilocaine Cream) 30 GM cream Active 1 APPLIC TP DAILY NEEDED 11 20September 22, 2020 1:40pm 09-22-2020 [facility] ([id number]) - loperamide (IMODIUM) 2 mg cap(s) Loperamide Loperamide (Imodium) 2 MG capsule Active 2 MG PO EVERY 2 HOURS NEEDED 20 08September 22, 2020 1:48pm Take 2 pills with the first loose stool, then 1 pill after each loose stool thereafter. 09-17-2020 [facility] ([id number]) - ondansetron orally disintegrating (ZOFRAN ODT) 4 mg disintegrating tablet Ondansetron Ondansetron (Zofran Odt) 4 MG tablet Active 4 MG PO EVERY 8 HOURS NEEDED 20 08September 22, 2020 1:40pm 09-22-2020 [facility] ([id number]) - oxyCODONE-acetaminophen (PERCOCET) 5-325 mg tablet TAKE 1 TABLET TWICE DAILY for 7 days, as needed. - SSD 1 % cream APPLY TO THE AFFECTED AREA(S) THREE TIMES DAILY - FOLIC ACID/MULTIVIT,IRON,WATER TREATMENT PLANT REPAIRER (CENTRUM ORAL) Take by mouth once daily. - ALBUTEROL SULFATE (VENTOLIN INHALATION) Inhale 2 Puffs as instructed once daily. - albuterol (PROAIR HFA) 90 mcg/Actuation INHALATION HFAA use as directed Problem List As Of Date 05/31/2021 Noted Resolved RECTAL AND ANAL HEMORRHAGE [K62.5] 08/19/2007 BENIGN NEOPLASM LG BOWEL [D12.6] 09/19/2007 Personal History of Colonic Polyps [Z86.010] 07/13/2009 Diverticulosis of Colon (without Mention of Hem*09/23/2009 Elevated blood pressure reading without diagnos*08/13/2017 Letter Text Encounter Status:Closed by MYKEL MAIN on 06/11/[address] [facility]issa 05-30-2021 CNOV Office Visit (GENSWS ) INNA STEVENSON ([id number]) 1950 F Date Time Provider Department 05/30/21 1:30 PM MYKEL MAIN During your visit today, we recorded the following information about you: Temperature Pulse Blood pressure Weight 98.2 degrees 89/minute 122/70 49.3 kg Mykel Main III, MD 05/31/2021 8:13 AM Signed Subjective: Is a 71-year-old female who was [...] not want to have that done today. 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 - fentaNYL (DURAGESIC) 12 mcg/hr pt72 Apply 1 patch to skin every 72 hours. Remove old patch. - hydrocortisone (HEMORRHOIDAL HC) 25 mg suppository Hydrocortisone Hydrocortisone Acetate Active 25 MG RC TWICE A DAY April 13, 2020 8:42am 04-13-2020 [facility] ([id number]) - lidocaine (XYLOCAINE) 4 % (40 mg/mL) external solution 1 mL. - lidocaine-prilocaine (EMLA) 2.5-2.5 % cream Lidocaine / Prilocaine Lidocaine/Prilocaine (Lidocaine-Prilocaine Cream) 30 GM cream Active 1 APPLIC TP DAILY NEEDED 11 20September 22, 2020 1:40pm 09-22-2020 [facility] ([id number]) - loperamide (IMODIUM) 2 mg cap(s) Loperamide Loperamide (Imodium) 2 MG capsule Active 2 MG PO EVERY 2 HOURS NEEDED 20 08September 22, 2020 1:48pm Take 2 pills with the first loose stool, then 1 pill after each loose stool thereafter. 09-17-2020 [facility] ([id number]) - ondansetron orally disintegrating (ZOFRAN ODT) 4 mg disintegrating tablet Ondansetron Ondansetron (Zofran Odt) 4 MG tablet Active 4 MG PO EVERY 8 HOURS NEEDED 20 08September 22, 2020 1:40pm 09-22-2020 [facility] ([id number]) - oxyCODONE-acetaminophen (PERCOCET) 5-325 mg tablet TAKE 1 TABLET TWICE DAILY for 7 days, as needed. - SSD 1 % cream APPLY TO THE AFFECTED AREA(S) THREE TIMES DAILY - FOLIC ACID/MULTIVIT,IRON,WATER TREATMENT PLANT REPAIRER (CENTRUM ORAL) Take by mouth once daily. - ALBUTEROL SULFATE (VENTOLIN INHALATION) Inhale 2 Puffs as instructed once daily. - albuterol (PROAIR HFA) 90 mcg/Actuation INHALATION HFAA use as directed Medication notes this encounter FENTANYL 12 MCG/HR TRANSDERMAL PATCH >> Eunice Mansfield RN 05/30/2021 1:34 PM >> EUNICE MANSFIELD Mon May 30, 2021 1:34 PM Patient has the patches, but she is not currently using them. Problem List As Of Date 05/30/2021 Noted Resolved RECTAL AND ANAL HEMORRHAGE [K62.5] 08/19/2007 BENIGN NEOPLASM LG BOWEL [D12.6] 09/19/2007 Personal History of Colonic Polyps [Z86.010] 07/13/2009 Diverticulosis of Colon (without Mention of Hem*09/23/2009 Elevated blood pressure reading without diagnos*08/13/2017 Encounter Status:Closed by MYKEL MAIN on 05/31/[address] [facility] Office Visit: acute visiton 08-02-2017 Alcoholism counseling (procedure) no Invalid Interpretation Code [facility] Work Phone: [phone] Documentation of current medications (procedure) Done Invalid Interpretation Code [facility] Work Phone: [phone] Protein mass conc yes Invalid Interpretation Code [facility] Work Phone: [phone] Protein mass conc no Invalid Interpretation Code [facility] Work Phone: [phone] Protein mass conc Done Invalid Interpretation Code [facility] Work Phone: [phone] Smoking cessation education (procedure) yes Invalid Interpretation Code [facility] Work Phone: [phone] Tobacco smoking status NHIS Never Invalid Interpretation Code [facility] Work Phone: [phone] Tobacco smoking status NHIS Current every day smoker Invalid Interpretation Code [facility] Work Phone: [phone] Tobacco use HS Current every day smoker Invali d Interpretation Code [facility] Work Phone: [phone] Lab Report: Basic Metabolic Profile (BMP)on 06-26-2017 Anion gap 11 mmol/L Invalid Interpretation Code 5-15 [facility] Work Phone: [phone] Anion gap 4 molar conc 11 Invalid Interpretation Code 5-15 [facility] Work Phone: [phone] BUN/Creatinine Ratio 19.9 RATIO Invalid Interpretation Code 10-20 [facility] Work Phone: [phone] Calcium 8.5 mg/dL Invalid Interpretation Code 8.5-10.1 [facility] Work Phone: [phone] Chloride 103 mmol/L Invalid Interpretation Code 98-107 [facility] Work Phone: [phone] CO2 26.0 mmol/L Invalid Interpretation Code 21.0-32.0 [facility] Work Phone: [phone] CO2 ppres (BldV) 26.0 mmol/L Invalid Interpretation Code 21.0-32.0 [facility] Work Phone: [phone] Creatinine 0.86 mg/dL Invalid Interpretation Code 0.55-1.02 [facility] Work Phone: [phone] eGFR (non-black) 85 mL/min/{1.73_m2} Invalid Interpretation Code >60 [facility] Work Phone: [phone] eGFR (non-black) 71 mL/min/{1.73_m2} Invalid Interpretation Code >60 [facility] Work Phone: [phone] EST GFR - AA 85 mL/min Invalid Interpretation Code >60 [facility] Work Phone: [phone] Glucose 99 mg/dL Invalid Interpretation Code 70-110 [facility] Work Phone: [phone] Glucose mass conc 99 mg/dL Invalid Interpretation Code 70-110 [facility] Work Phone: [phone] Potassium 4.0 mmol/L Invalid Interpretation Code 3.5-5.1 [facility] Work Phone: [phone] Sodium 140 mmol/L Invalid Interpretation Code 136-145 [facility] Work Phone: [phone] Urea nitrogen 17 mg/dL Invalid Interpretation Code 7-18 [facility] Work Phone: [phone] Lab Report: CBC-Complete Blo od Cnt No Diffon 06-26-2017 Erythrocyte distribution width Auto Ratio (RBC) 43.7 fL Invalid Interpretation Code 35.1-43.9 [facility] Work Phone: [phone] Erythrocytes (RBC) 4.75 10*6/uL Invalid Interpretation Code 4.2-5.4 [facility] Work Phone: [phone] Hematocrit (HCT) 43.5 % Invalid Interpretation Code 37-47 [facility] Work Phone: [phone] Hemoglobin (HGB) 14.3 g/dL Invalid Interpretation Code 12.0-15.0 [facility] Work Phone: [phone] MCH 30.1 pg Invalid Interpretation Code 27.0-32.0 [facility] Work Phone: [phone] MCHC 32.9 G/GL Invalid Interpretation Code 32-36 [facility] Work Phone: [phone] MCV 91.6 fL Invalid Interpretation Code 81-99 [facility] Work Phone: [phone] Platelets 205 10*3/mm3 Invalid Interpretation Code 150-450 [facility] Work Phone: [phone] PMV by Kendra 11.8 fL Invalid Interpretation Code 6.2-12.0 [facility] Work Phone: [phone] RDW SD 43.7 fL Invalid Interpretation Code 35.1-43.9 [facility] Work Phone: [phone] RDW-CA 13.2 % Invalid Interpretation Code 11.6-14.6 [facility] Work Phone: [phone] red blood cell distribution width, size density 43.7 fL Invalid Interpretation Code 35.1-43.9 [facility] Work Phone: [phone] WBC (Leukocytes) 6.7 10*3/uL Invalid Interpretation Code 4.4-11.0 [facility] Work Phone: [phone] Office Visit: pre-OP felicia crenshaw 06-08-2017 Alcoholism counseling (procedure) no Invalid Interpretation Code [facility] Work Phone: [phone] Documentation of current medications (procedure) Done Invalid Interpretation Code [facility] Work Phone: [phone] Fall risk assessment No Invalid Interpretation Code [facility] Work Phone: [phone] Protein mass conc no [facility] Work Phone: [phone] Protein mass conc yes [facility] Work Phone: [phone] Protein mass conc Done [facility] Work Phone: [phone] Smoking cessation education (procedure) yes Invalid Interpretation Code [facility] Work Phone: [phone] Tobacco smoking status NHIS Never Invalid Interpretation Code [facility] Work Phone: [phone] Tobacco smoking status NHIS Current every day smoker [facility] Work Phone: [phone] Tobacco use CPHS Current every day smoker Invali d Interpretation Code [facility] Work Phone: [phone] Lab Report: CBC-Complete Blo od Cnt No Diffon 05-07-2017 Erythrocyte distribution width Ratio (RBC) 13.1 % 11.6-14.6 [facility] [employer] Work Phone: [phone] Erythrocyte distribution width Ratio (RBC) 43.1 fL 35.1-43.9 [facility] Work Phone: [phone] Erythrocytes (RBC) 4.70 10*6/uL Invalid Interpretation Code 4.2-5.4 [facility] Hematocrit (HCT) 42.7 % Invalid Interpretation Code 37-47 [facility] Hematocrit Volume Fraction (Bld) 42.7 % 37-47 [facility] [employer] Work Phone: [phone] Hemoglobin (HGB) 14.4 g/dL Invalid Interpretation Code 12.0-15.0 [facility] MCH 30.6 pg Invalid Interpretation Code 27.0-32.0 [facility] MCH Entitic mass (RBC) 30.6 pg 27.0-32.0 [employer] Work Phone: [phone] MCHC 33.7 G/GL Invalid Interpretation Code 32-36 [facility] MCHC mass conc (RBC) 33.7 G/GL 32-36 [facility] [employer] Work Phone: [phone] MCV 90.9 fL Invalid Interpretation Code 81-99 [facility] MCV Entitic volume (RBC) 90.9 fL 81-99 [facility] Work Phone: [phone] Platelet mean volume Entitic volume (Bld) 11.6 fL 6.2-12.0 [facility] Work Phone: [phone] Platelets 212 10*3/mm3 Invalid Interpretation Code 150-450 [facility] Platelets #/vol (Bld) 212 10*3/mm3 150-450 [facility] Work Phone: [phone] PMV by Kendra 11.6 fL Invalid Interpretation Code 6.2-12.0 [facility] RBC #/vol (Bld) 4.70 10*6/uL 4.2-5.4 [facility] [employer] [facility] Work Phone: [phone] RDW-CA 13.1 % Invalid Interpretation Code 11.6-14.6 [facility] red blood cell distribution width, size density 43.1 fL Invalid Interpretation Code 35.1-43.9 [facility] WBC #/vol (Bld) 5.8 10*3/uL 4.4-11.0 [facility] [employer] Work Phone: [phone] WBC (Leukocytes) 5.8 10*3/uL Invalid Interpretation Code 4.4-11.0 [facility] Lab Report: Comprehensive Me tabolic Profilon 05-07-2017 Alanine aminotransferase (ALT) 21 U/L Invalid Interpretation Code 12-78 [facility] Albumin 3.5 g/dL Invalid Interpretation Code 3.4-5.0 [facility] Albumin/Globulin Ratio 1 {ratio} Invalid Interpretation Code 0.9-2.4 [facility] Alkaline phosphatase (ALP) 78 U/L Invalid Interpretation Code 45-117 [facility] ALP enzyme act/vol (Bld) 78 U/L Invalid Interpretation Code 45-117 [facility] Work Phone: [phone] Anion gap 7 mmol/L Invalid Interpretation Code 5-15 [facility] Anion gap molar conc 7 mmol/L 5-15 [employer] Work Phone: [phone] Aspartate aminotransferase (AST) 16 U/L Invalid Interpretation Code 15-37 [facility] Bilirubin (total) 0.50 mg/dL Invalid Interpretation Code 0.20-1.00 [facility] BUN/Creatinine Ratio 16.7 RATIO Invalid Interpretation Code 10-20 [facility] Calcium 8.8 mg/dL Invalid Interpretation Code 8.5-10.1 [facility] Chloride 106 mmol/L Invalid Interpretation Code 98-107 [facility] CO2 30.0 mmol/L Invalid Interpretation Code 21.0-32.0 [facility] CO2 ppres (BldV) 30.0 mmol/L 21.0-32.0 [facility] [employer] Work Phone: [phone] Creatinine 0.78 mg/dL Invalid Interpretation Code 0.55-1.02 [facility] eGFR (non-black) 95 mL/min/{1.73_m2} Invalid Interpretation Code >60 [facility] eGFR (non-black) 79 mL/min/{1.73_m2} Invalid Interpretation Code >60 [facility] EST GFR - AA 95 mL/min >60 [facility] [employer] Work Phone: [phone] Globulin 3.6 g/dL High 2.3-3.5 [facility] Globulin mass conc (S) 3.6 g/dL High 2.3-3.5 [employer] Work Phone: [phone] Glucose 100 mg/dL Invalid Interpretation Code 70-110 [facility] Glucose mass conc 100 mg/dL 70-110 [employer] Work Phone: [phone] Potassium 4.4 mmol/L Invalid Interpretation Code 3.5-5.1 [facility] Protein 7.1 g/dL Invalid Interpretation Code 6.4-8.2 [facility] Sodium 143 mmol/L Invalid Interpretation Code 136-145 [facility] Urea nitrogen 13 mg/dL Invalid Interpretation Code 7-18 [facility] Office Visit: New Pt Visiton 04-27-2017 Documentation of current medications (procedure) Done Invalid Interpretation Code [facility] Fall risk assessment Yes [facility] Protein mass conc Done [facility] Protein mass conc yes [facility] Smoking cessation education (procedure) yes Invalid Interpretation Code [facility] Tobacco smoking status NHIS Current every day smoker [facility] Tobacco use [facility] Current every day smoker Invali d Interpretation Code [facility] Office Visit: evaluation act inic keratosis left jewish - surgery 11/05/14on 11-13-2014 Alcoholism counseling (procedure) no Invalid Interpretation Code [facility] Protein mass conc no [facility] Tobacco smoking status NHIS Never [facility] Lab Report: Basic Metabolic Profile (BMP)on 11-02-2014 Anion gap molar conc 5 mmol/L 5-15 [facility] Calcium mass conc 8.6 mg/dL 8.5-10.1 [facility] Chloride molar conc 104 mmol/L 98-107 [facility] CO2 ppres (BldV) 29.0 mmol/L 21.0-32.0 [facility] Creatinine mass conc 0.9 mg/dL 0.6-1.0 [facility] EST GFR - AA 81 mL/min >60 [facility] Estimated CRCL 59.89 ml/min Invalid Interpretation Code [facility] GE use only - for [employer] import when terms are not otherwise specified 59.89 ml/min Invalid Interpretation Code [facility] GFR/1.73 sq M predicted among non-blacks MDRD vol rate/area (S/P/Bld) 67 mL/min/{1.73_m2} >60 [facility] Glucose mass conc 81 mg/dL 70-110 [facility] Potassium molar conc 4.1 mmol/L 3.5-5.1 [facility] Sodium molar conc 138 mmol/L 136-145 [facility] Urea nitrogen mass conc 14 mg/dL 7-18 [facility] Urea nitrogen/Creatinin e mass ratio 15.6 RATIO 10-20 [facility] Lab Report: CBC W/Diff, Auto matedon 11-02-2014 Absolute Neut 2.7 X10 3/UL Invalid Interpretation Code 2.0-7.7 [facility] Absolute Neutrophil count 2.7 X10 3/UL Invalid Interpretation Code 2.0-7.7 [facility] Basophils/100 leukocytes 0.4 % Invalid Interpretation Code 0-1 [facility] Basophils/100 WBC (Bld) 0.4 % 0-1 [facility] Eosinophils/100 leukocytes 0.9 % Invalid Interpretation Code 0-5 [facility] Eosinophils/100 WBC (Bld) 0.9 % 0-5 [facility] Hematocrit Volume Fraction (Bld) 42.4 % 37-47 [facility] Hemoglobin mass conc (Bld) 13.9 g/dL 12.0-15.0 [facility] Lymphocytes/100 leukocytes 36.8 % Invalid Interpretation Code 19-41 [facility] Lymphocytes/100 WBC (Bld) 36.8 % 19-41 [facility] MCH Entitic mass (RBC) 29.6 pg 27.0-32.0 [facility] MCHC mass conc (RBC) 32.8 G/GL 32-36 [facility] MCV Entitic volume (RBC) 90.4 fL 81-99 [facility] Monocytes/100 leukocytes 11.5 % Critically high 0-10 [facility] Monocytes/100 WBC (Bld) 11.5 % Critically high 0-10 [facility] Neutrophils/100 leukocytes 50.2 % Invalid Interpretation Code 47-70 [facility] Neutrophils/100 WBC (Bld) 50.2 % 47-70 [facility] Platelet mean volume Entitic volume (Bld) 11.1 fL 6.2-12.0 [facility] Platelets #/vol (Bld) 212 10*3/mm3 150-450 [facility] RBC #/vol (Bld) 4.69 10*6/uL 4.2-5.4 [facility] WBC #/vol (Bld) 5.3 10*3/uL 4.4-11.0 [facility] Vital Signs Date Time Vital Sign Value Performing Clinician Facility 04-13-2022 12:19-0400 Diastolic blood pressure 61 mm[Hg] Mykel Main MD Work Phone: [facility] 04-13-2022 12:19-0400 Respiratory rate 16 /min Mykel Main MD Work Phone: [facility] 04-13-2022 12:19-0400 Systolic blood pressure 131 mm[Hg] Mykel Main MD Work Phone: [facility] 04-13-2022 12:09-0400 Heart rate 65 /min Mykel Main MD Work Phone: [facility] 04-13-2022 12:09-0400 SaO2% (BldA) [Mass fraction] 98 % Mykel Main MD Work Phone: [facility] 04-13-2022 11:00-0400 Body temperature 97.2 [degF] Mykel Main MD Work Phone: [facility] 04-13-2022 11:00-0400 Body weight 52.2 kg Mykel Main MD Work Phone: [facility] 03-13-2022 09:36-0400 Body height 162.6 cm Marianela Alejandra PA-C Work Phone: [facility] 03-13-2022 09:36-0400 Body temperature 97.9 [degF] Marianela Alejandra PA-C Work Phone: [facility] 03-13-2022 09:36-0400 Body weight 52.16 kg Marianela [place] PA-C Work Phone: [facility] 03-13-2022 09:36-0400 Diastolic blood pressure 78 mm[Hg] Marianela Alejandra PA-C Work Phone: [facility] 03-13-2022 09:36-0400 Heart rate 88 /min Marianela [place] PA-C Work Phone: [facility] 03-13-2022 09:36-0400 SaO2% (BldA) [Mass fraction] 97 % Marianela Hernandezf PA-C Work Phone: [facility] 03-13-2022 09:36-0400 Systolic blood pressure 142 mm[Hg] Marianela Alejandra PA-C Work Phone: [facility] 08-02-2017 14:08-0400 BMI (Body Mass Index) 24.11 kg/m2 Moris Bautistader HOUSE FELLOW-C [facility] Work Phone: 08-02-2017 14:08-0400 Body Temperature 96.4 [degF] Moris Bautistader HOUSE FELLOW-C [facility] Work Phone: 08-02-2017 14:08-0400 BP Diastolic 109 mm[Hg] Moris Bautistader HOUSE FELLOW-C [facility] Work Phone: 08-02-2017 14:08-0400 BP Diastolic 110 mm[Hg] Moris Cornelius HOUSE FELLOW-C [facility] Work Phone: 08-02-2017 14:08-0400 BP Systolic 208 mm[Hg] Moris Bautistader HOUSE FELLOW-C [facility] Work Phone: 08-02-2017 14:08-0400 BP Systolic 200 mm[Hg] Moris Bautistader HOUSE FELLOW-C [facility] Work Phone: 08-02-2017 14:08-0400 Height 165.74 cm Moris Cornelius HOUSE FELLOW-C [facility] Work Phone: 08-02-2017 14:08-0400 Pulse (Heart Rate) 79 /min Moris Bautistader HOUSE FELLOW-C [facility] Work Phone: 08-02-2017 14:08-0400 Respiratory Rate 18 /min Moris Bautistader HOUSE FELLOW-C [facility] Work Phone: 08-02-2017 14:08-0400 Weight 66.23 kg Moris Cornelius HOUSE FELLOW-C [facility] Work Phone: 06-08-2017 14:00-0400 BMI (Body Mass Index) 24.44 kg/m2 Mary Martdioniy [facility] Work Phone: 06-08-2017 14:00-0400 Body Temperature 98.2 [degF] Mary Marthey [facility] Work Phone: 06-08-2017 14:00-0400 BP Diastolic 82 mm[Hg] Mary Marthey [facility] Work Phone: 06-08-2017 14:00-0400 BP Diastolic 84 mm[Hg] Mary Marthey [facility] Work Phone: 06-08-2017 14:00-0400 BP Systolic 189 mm[Hg] Mary Marthey [facility] Work Phone: 06-08-2017 14:00-0400 BP Systolic 207 mm[Hg] Mary Marthey [facility] Work Phone: 06-08-2017 14:00-0400 BP Systolic 205 mm[Hg] Mary Marthey [facility] Work Phone: 06-08-2017 14:00-0400 Height 165.74 cm Mary Marthey [facility] Work Phone: 06-08-2017 14:00-0400 Pulse (Heart Rate) 68 /min Mary Marthey [facility] Work Phone: 06-08-2017 14:00-0400 Weight 67.13 kg Mary Marthey [facility] Work Phone: 04-27-2017 10:36-0400 BMI (Body Mass Index) 23.45 kg/m2 Bernard Grider MD [facility] 04-27-2017 10:36-0400 BP Diastolic 88 mm[Hg] Bernard Grider MD [facility] 04-27-2017 10:36-0400 BP Systolic 186 mm[Hg] Bernard Grider MD [facility] 04-27-2017 10:36-0400 Weight 64.41 kg Bernard Grider MD [facility] 11-13-2014 13:11-0500 Body Temperature 98.6 [degF] Bernard Grider MD [facility] 11-13-2014 13:11-0500 BSA (Body Surface Area) 1.72 m2 Bernard Grider MD [facility] 11-13-2014 13:11-0500 Pulse (Heart Rate) 69 /min Bernard Grider MD [facility] 11-13-2014 13:11-0500 Respiratory Rate 20 /min Bernard Grider MD [facility] 10-13-2014 11:22-0500 Height 165.74 cm Bernard Grider MD [facility] Encounters Encounter Date Encounter Type Care Provider Facility Start: 04-19-2022 Telephone encounter Marianela roe PA-C Work Phone: General Surgery Comment on above: Results Start: 04-13-2022 End: 04-13-2022 Subsequent hospital visit by physician Mykel Main MD Work Phone: Ambulatory Surgery Comment on above: History of anal canc er [Z85.048] Start: 03-24-2022 Telephone encounter Mykel berg MD Work Phone: General Surgery Comment on above: Procedure Start: 03-13-2022 End: 03-13-2022 Patient encounter procedure Marianela Roberts PA-C Work Phone: General Surgery Comment on above: Dysphagia, unspecifi ed type (Primary Dx); Squamous cell cancer, anus (HCC); History of colonic polyps; Abnormal finding on GI tract imaging Procedures Date Procedure Procedure Detail Performing Clinician Start: 04-13-2022 Esophagogastroduodenoscopy transoral diagnostic Mykel Main MD Work Phone: Start: 04-13-2022 Colon ca scrn not hi rsk ind Mykel samayoa MD Work Phone: Start: 04-13-2022 Colonoscopy Mykel Main MD Work Phone: Start: 02-10-2021 Colonoscopy Marianela Roberts PA-C Work Phone: Start: 06-08-2017 Pre-surgery evaluation Preop exam Moris Cornelius HOUSE FELLOW-C Start: 06-08-2017 Pre-surgery evaluation Preop exam Mary Marthey Start: 06-05-2017 End: 06-06-2017 Chest x-ray 4/> views Bernard Grider MD Work Phone: Start: 06-05-2017 End: 06-06-2017 Electrocardiogram Bernard Grider MD Work Phone: Start: 06-05-2017 Preoperative cardiovascular examination Preoperative cardiovascular Moris Cornelius HOUSE FELLOW-C Start: 06-05-2017 Preoperative pulmonary examination Preoperative pulmon jonatan evaluation Moris Cornelius HOUSE FELLOW-C Start: 06-05-2017 End: 06-06-2017 Chest x-ray 4/> [...] Other Glenn Cameron MD Start: 11-14-2012 Mammography Marianela Roberts PA-C Work Phone: Plan of Treatment Date Care Activity Detail Author Start: 04-13-2027 Colonoscopy COLONOSCOPY [facility] Start: 04-13-2027 COLORECTAL CANCER SCREENING COLORECTAL CANCER SCREENING [facility] Start: 02-10-2026 Colonoscopy COLONOSCOPY [facility] Start: 02-10-2026 COLORECTAL CANCER SCREENING COLORECTAL CANCER SCREENING [facility] Start: 04-13-2025 Colonoscopy COLONOSCOPY [facility] Start: 04-13-2025 COLORECTAL CANCER SCREENING COLORECTAL CANCER SCREENING [facility] Start: 06-22-2022 Influenza vaccination INFLUENZ A (Season Ended) [facility] Start: 05-07-2022 LIPID SCREEN LIPID SCREEN [facility] Start: 02-04-2022 COVID-19 VACCINE (4 - Booster for Pfizer series) COVID-19 VACCINE (4 - Booster for Pfizer series) [facility] Start: 10-22-2021 ADVANCE DIRECTIVE DISCUSSION ADVANCE DIRECTIVE DISCUSSION [facility] Start: 08-02-2017 End: 08-02-2017 Appointment Appointment [facility] Work Phone: Start: 08-02-2017 End: 08-02-2017 Follow Up Appt 2 weeks Follow Up Appt 2 weeks [facility] Work Phone: Start: 06-08-2017 End: 06-08-2017 Appointment Appointment [facility] Work Phone: Start: 06-08-2017 End: 06-08-2017 Follow Up Appt 1 month Follow Up Appt 1 month [facility] Work Phone: Start: 06-08-2017 End: 06-08-2017 Follow Up Appt 1 month Follow Up Appt 1 month [facility] Work Phone: Start: 06-05-2017 End: 06-06-2017 *EKG (Done in Hospital) *EKG (Done in Hospital) [facility] Work Phone: Start: 06-05-2017 End: 06-06-2017 Chest x-ray 4/> views Chest XRAY [facility] Work Phone: Start: 06-05-2017 End: 06-06-2017 *EKG (Done in Hospital) *EKG (Done in Hospital) [facility] Work Phone: Start: 06-05-2017 End: 06-06-2017 Chest x-ray 4/> views Chest XRAY [facility] Work Phone: Start: 04-27-2017 End: 05-07-2017 *CMP Complete Metabolic Panel *CMP Complete Metabolic Panel [facility] Work Phone: Start: 04-27-2017 End: 05-07-2017 CBC W Auto Differential panel - Blood *CBC without Diff [facility] Work Phone: Start: 04-27-2017 End: 05-07-2017 Follow Up Appt 3 months Follow Up Appt 3 months [facility] Work Phone: Start: 04-27-2017 End: 05-07-2017 Lipid panel [AGGREGATE] *Lipid Profile [facility] Work Phone: Start: 04-27-2017 End: 05-07-2017 Mammogram, screening Mammogram, Screening, both breasts [facility] Work Phone: Start: 04-27-2017 End: 04-27-2017 Appointment Appointment [facility] Start: 04-27-2017 End: 05-07-2017 *CMP Complete Metabolic Panel *CMP Complete Metabolic Panel [facility] Start: 04-27-2017 End: 05-07-2017 CBC W Auto Differential panel - Blood *CBC without Diff [facility] Start: 04-27-2017 End: 05-07-2017 Follow Up Appt 3 months Follow Up Appt 3 months [facility] Start: 04-27-2017 End: 05-07-2017 Lipid panel [AGGREGATE] *Lipid Profile [facility] Start: 04-27-2017 End: 05-07-2017 Mammogram, screening Mammogram, Screening, both breasts [facility] Start: 02-27-2016 BONE DENSITY BONE DENSITY [facility] Start: 11-13-2014 End: 11-17-2014 Follow Up Appt 2 weeks Follow Up Appt 2 weeks [facility] Work Phone: Start: 11-13-2014 End: 11-17-2014 Follow Up Appt 2 weeks Follow Up Appt 2 weeks [facility] Start: 10-13-2014 End: 11-02-2014 Follow Up Appt Other Follow Up Appt Other [facility] Work Phone: Start: 10-13-2014 End: 11-02-2014 Follow Up Appt Other Follow Up Appt Other [facility] Start: 11-14-2013 Mammography MAMMOGRAM [facility] Start: 2001 Influenza vaccination LUNG CANCER SC [facility] Start: 2001 SHINGRIX VACCINE (1 of 2) SHINGRIX VACCINE (1 of 2) [facility] Start: 02-27-1996 COLOGUARD (FIT-DNA) COLOGUARD (FIT-D NA) [facility] Start: 02-27-[address] COLONOGRAPHY [facility] Start: 02-27-1996 DIABETES SCREEN DIABETES SCREEN [facility] Start: 02-27-1996 FECAL OCCULT BLOOD FECAL OCCULT BLOO D [facility] Start: 02-27-1996 LIPID SCREEN LIPID SCREEN [facility] Start: 02-27-1996 SIGMOIDOSCOPY SIGMOIDOSCOPY [facility] Start: 1970 SHINGRIX VACCINE (1 of 2) SHINGRIX VACCINE (1 of 2) [facility] Start: 1970 Urine microalbumin profile DTAP,TDAP,TD (1 - Tdap) [facility] Start: 1969 HEPATITIS C SCREENING HEPATITIS C SC JESSICANING [facility] Start: 1963 Adult depression screening assessment DEPRESSION SCREENING [facility] Start: 1957 PNEUMOCOCCAL: 65+ (1 - PCV) PNEUMOCOCCAL: 65+ (1 - PCV) [facility] End: 03-24-2023 EGD DIAGNOSTIC EGD DIAGNOSTIC Endoscopy Routine Dysphagia, unspecified type Esophageal polyp 1 Occurrences starting 03/24/2022 until 03/24/2023 [facility] Work Phone: Comment on above: 1 Occurrences starti ng 03/24/2022 until 03/24/2023 Patient Education [facility] End: 03-24-2023 Screening colonoscopy COLONOSCOPY SCREENING Endoscopy Routine History of anal cancer Squamous cell carcinoma of perianal region 1 Occurrences starting 03/24/2022 until 03/24/2023 [facility] Work Phone: Comment on above: 1 Occurrences starti ng 03/24/2022 until 03/24/2023 SURGICAL PATHOLOGY [facility] Work Phone: Comment on above: Release Upon Dionnein g for 1 Occurrences starting 04/13/2022, 1 completed [facility] Immunizations Immunization Date Immunization Notes Care Provider Compa romano 08-02-2017 pneumococcal polysaccharide vaccine, 23 valent Moris Cornelius HOUSE FELLOW-C [facility] Work Phone: 08-02-2017 Seasonal trivalent influenza vaccine, adjuvanted, preservative free Moris Cornelius HOUSE FELLOW-C [facility] Work Phone: 08-02-2017 [id number] Moris Cornelius HOUSE FELLOW-C [facility] Work Phone: 04-27-2017 varicella virus vaccine Moris Cornelius F FLAT SHEET MAKER-C [facility] Work Phone: 04-27-2017 varicella virus vaccine Kanchan Grider MD [facility] Payers Date Payer Category Payer Medicare [employer] [facility] [id number] 2022-Present [phone] [address] [place] [address] O [id number] 2001 [place] [id number] 2001-Present [phone] [address] [place] [address] Medicaid [id number] Social History Date Type [facility]ail [facility] History of tobacco use [facility] Start: 03-13-2022 End: 04-13-2022 Alcohol intake Current drinker of alcohol (finding) [facility] Start: 1950 [facility]igned [facility] Start: 03-03-2022 End: 04-13-2022 Exposure to SARS-CoV-2 (event) Not sure [facility] Clinical Notes 05-31-2021 to 04-19-2022 Telephone Encounter - Marianela Roberts PA-C - 04/19/2022 1:26 PM Gustavo Main MD - 04/13/2022 12:00 PM Chetan [...] recall letter generated. documented in this encounter [facility] 04-13-2022 Note HNO ID: [id number] Author: Deann Le RN Service: ? Author Type: Registered Nurse Type: Nursing Progress Note Filed: 04/13/2022 12:00 PM Note Text: Patient passing large amounts of air rectally. [facility] 04-13-2022 History and physical note Images from the original note were not included. HISTORY AND PHYSICAL Inna Wesley Graham 1950 REFERRING PHYSICIAN: Mykel Main MD CHIEF [...] surgery. She was seen in interim by pipe line gauger Dr. Thornton in [place], notes reviewed. Colonoscopy was recommended. Patient stated she had scheduled this with Dr. Thornton's office but decided she wanted this sooner than what was offered, and with Dr. Main as she has been seen by him previously. Patient had a recent CT scan done through [facility] 02/27/22 which showed soft tissue swelling and [...] EVERY MORNING February 11, 2018 Active 02-11-2018 [facility] ([id number]) amLODIPine (NORVASC) 10 mg tablet Take 10 [...] A DAY April 13, 2020 8:42am 04-13-2020 [facility] ([id number]) (Patient not taking: Reported on 05/30/2021) lidocaine (XYLOCAINE) 4 % (40 mg/mL) external solution 1 mL. (Patient not taking: Reported on 05/30/2021 ) lidocaine-prilocaine (EMLA) 2.5-2.5 % cream Lidocaine / Prilocaine Lidocaine/Prilocaine (Lidocaine-Prilocaine Cream) 30 GM cream Active 1 APPLIC TP DAILY NEEDED 11 20September 22, 2020 1:40pm 09-22-2020 [facility] ([id number]) (Patient not taking: Reported on 05/30/2021) loperamide (IMODIUM) 2 mg cap(s) Loperamide Loperamide (Imodium) 2 MG capsule Active 2 MG PO EVERY 2 HOURS NEEDED 20 08September 22, 2020 1:48pm Take 2 pills with the first loose stool, then 1 pill after each loose stool thereafter. 09-17-2020 [facility] ([id number]) (Patient not taking: Reported on 05/30/2021) ondansetron orally disintegrating (ZOFRAN ODT) 4 mg disintegrating tablet Ondansetron Ondansetron (Zofran Odt) 4 MG tablet Active 4 MG PO EVERY 8 HOURS NEEDED 20 08September 22, 2020 1:40pm 09-22-2020 [facility] ([id number]) (Patient not taking: Reported on 05/30/2021) oxyCODONE-acetaminophen (PERCOCET) 5-325 mg tablet TAKE 1 TABLET TWICE DAILY for 7 days, as needed. (Patient not taking: TAKE 1 TABLET TWICE DAILY for 7 days, as needed.) SSD 1 % cream APPLY TO THE AFFECTED AREA(S) THREE TIMES DAILY (Patient not taking: Reported on 05/30/2021) FOLIC ACID/MULTIVIT,IRON,WATER TREATMENT PLANT REPAIRER (CENTRUM ORAL) Take by mouth once daily. [...] entered by the nurse and reviewed by wv Nursing Notes: Galilea Villarreal LPN 03/13/2022 9:39 [...] the PFSH and ROS obtained by others. Marianela Roberts PA-C PHYSICAL EXAMINATION: General: The patient [...] patient was offered a surgery/procedure at a [facility]. I have counseled the patient regarding the [...] which included preparing to see the patient, [id number] patient care, completing clinical documentation, obtaining and/or reviewing separately obtained history, performing a medically appropriate examination, counseling and educating the patient/family/caregiver, ordering medications, tests, or procedures, communicating with other HCPs (not separately reported) and care coordination (not separately reported). Marianela Roberts PA-C UPDATED HISTORY AND PHYSICAL EXAMINATION [...] Mykel Main III, MD PATIENT NAME: Inna Stevenson DATE: April 13, 2022 TIME: 10:53 AM documented in this encounter [facility] 04-13-2022 Nurse Note Patient passing large amounts of air rectally. Patient received in PACU, on left side, eyes closed, arouses to verbal stimuli, abdomen soft, non distended, denies pain or nausea, respirations regular and unlabored. documented in this encounter [facility] 03-27-2022 Miscellaneous Notes Patient contacted and scheduled with Dr. Main on 04/13. Patient stated she has the instructions for her bowel prep. Isabella Quiroga PSS 1st attempt to reach patient to schedule upper and lower scopes at [facility] with Dr. Main per Marianela Roberts. LV to call me directly at [phone] to proceed with scheduling. Orders are in the [place] documented in this encounter [facility] 03-13-2022 Note HNO ID: [id number] Author: Marianela Roberts PA-C Service: ? Author Type: Physician Property Handler Type: Progress Notes Filed: 03/24/2022 1:53 PM Note Text: HISTORY AND PHYSICAL Inna Stevenson 1950 REFERRING PHYSICIAN: Mykel Main MD CHIEF [...] surgery. She was seen in interim by pipe line gauger Dr. Thornton in [place], notes reviewed. Colonoscopy was recommended. Patient stated she had scheduled this with Dr. Thornton's office but decided she wanted this sooner than what was offered, and with Dr. Main as she has been seen by him previously. Patient had a recent CT scan done through [facility] 02/27/22 which showed soft tissue swelling and [...] EVERY MORNING February 11, 2018 Active 02-11-2018 [facility] ([id number]) - amLODIPine (NORVASC) 10 mg tablet Take [...] A DAY April 13, 2020 8:42am 04-13-2020 [facility] ([id number]) (Patient not taking: Reported on 05/30/2021) - lidocaine (XYLOCAINE) 4 % (40 mg/mL) external solution 1 mL. (Patient not taking: Reported on 05/30/2021 ) - lidocaine-prilocaine (EMLA) 2.5-2.5 % cream Lidocaine / Prilocaine Lidocaine/Prilocaine (Lidocaine-Prilocaine Cream) 30 GM cream Active 1 APPLIC TP DAILY NEEDED 1 September 22, 2020 1:40pm 09-22-2020 [facility] ([id number]) (Patient not taking: Reported on 05/30/2021) - loperamide (IMODIUM) 2 mg cap(s) Loperamide Loperamide (Imodium) 2 MG capsule Active 2 MG PO EVERY 2 HOURS NEEDED 20 08September 22, 2020 1:48pm Take 2 pills with the first loose stool, then 1 pill after each loose stool thereafter. 09-17-2020 [facility] (more content not included)... [facility] 03-13-2022 History of Present illness Narrative HISTORY AND PHYSICAL Inna Stevenson 1950 REFERRING PHYSICIAN: Mykel Main MD CHIEF [...] surgery. She was seen in interim by pipe line gauger Dr. Thornton in [place], notes reviewed. Colonoscopy was recommended. Patient stated she had scheduled this with Dr. Thornton's office but decided she wanted this sooner than what was offered, and with Dr. Main as she has been seen by him previously. Patient had a recent CT scan done through [facility] 02/27/22 which showed soft tissue swelling and [...] EVERY MORNING February 11, 2018 Active 02-11-2018 [facility] ([id number]) amLODIPine (NORVASC) 10 mg tablet Take 10 [...] A DAY April 13, 2020 8:42am 04-13-2020 [facility] ([id number]) (Patient not taking: Reported on 05/30/2021) lidocaine (XYLOCAINE) 4 % (40 mg/mL) external solution 1 mL. (Patient not taking: Reported on 05/30/2021 ) lidocaine-prilocaine (EMLA) 2.5-2.5 % cream Lidocaine / Prilocaine Lidocaine/Prilocaine (Lidocaine-Prilocaine Cream) 30 GM cream Active 1 APPLIC TP DAILY NEEDED 11 20September 22, 2020 1:40pm 09-22-2020 [facility] ([id number]) (Patient not taking: Reported on 05/30/2021) loperamide (IMODIUM) 2 mg cap(s) Loperamide Loperamide (Imodium) 2 MG capsule Active 2 MG PO EVERY 2 HOURS NEEDED 20 08September 22, 2020 1:48pm Take 2 pills with the first loose stool, then 1 pill after each loose stool thereafter. 09-17-2020 [facility] ([id number]) (Patient not taking: Reported on 05/30/2021) ondansetron orally disintegrating (ZOFRAN ODT) 4 mg disintegrating tablet Ondansetron Ondansetron (Zofran Odt) 4 MG tablet Active 4 MG PO EVERY 8 HOURS NEEDED 20 08September 22, 2020 1:40pm 09-22-2020 [facility] ([id number]) (Patient not taking: Reported on 05/30/2021) oxyCODONE-acetaminophen (PERCOCET) 5-325 mg tablet TAKE 1 TABLET TWICE DAILY for 7 days, as needed. (Patient not taking: TAKE 1 TABLET TWICE DAILY for 7 days, as needed.) SSD 1 % cream APPLY TO THE AFFECTED AREA(S) THREE TIMES DAILY (Patient not taking: Reported on 05/30/2021) FOLIC ACID/MULTIVIT,IRON,WATER TREATMENT PLANT REPAIRER (CENTRUM ORAL) Take by mouth once daily. [...] entered by the nurse and reviewed by me Nursing Notes: Galilea Villarreal LPN 03/13/2022 9:39 [...] the PFSH and ROS obtained by others. Marianela Roberts PA-C PHYSICAL EXAMINATION: General: The patient [...] patient was offered a surgery/procedure at a [facility]. I have counseled the patient regarding the [...] which included preparing to see the patient, [id number] patient care, completing clinical documentation, obtaining and/or reviewing separately obtained history, performing a medically appropriate examination, counseling and educating the patient/family/caregiver, ordering medications, tests, or procedures, communicating with other HCPs (not separately reported) and care coordination (not separately reported). Marianela Alejandra, PA-C documented in this encounter [facility] 03-13-2022 Nurse Note REVIEW OF SYSTEMS: [...] Galilea Villarreal LPN documented in this encounter [facility] 12-05-2021 Note HNO ID: [id number] Author: Mykel Main MD Service: ? Author [...] her to colorectal surgery for endorectal ultrasound. [facility] 06-11-2021 Note HNO ID: [id number] Author: Mykel Main MD Service: ? Author [...] exam was performed showing no firm areas. [facility] 06-11-2021 Note HNO ID: [id number] Author: Mykel Main MD Service: ? 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 The patient needed snf IV access. A right portacath was placed. [...] me as needed. Mykel Main III, MD [facility] 06-07-2021 Note HNO ID: [id number] Author: Genia Layton LPN Service: ? Author [...] EMERGENT procedures): No specimen collected. Genia Layton [facility] 05-31-2021 Note HNO ID: [id number] Author: Mykel Main MD Service: ? Author [...] not want to have that done today. [facility] Evaluation note Diagnosis Dysphagia, unspecified type- Primary Squamous cell cancer, anus (HCC) Malignant neoplasm of anus, unspecified site History of colonic polyps Personal history of colonic polyps Abnormal finding on GI tract imaging Nonspecific (abnormal) findings on radiological and other examination of gastrointestinal tract 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 for referral (narrative)* Outpatient Procedure (Routine) - Authorized Specialty Diagnoses / Procedures Referred By Ekaterina alonso Referred To Contact [facility] Diagnoses Dysphagia, unspecified type Esophageal polyp Procedures EGD DIAGNOSTIC ESOPHAGOGASTRODUODENOSC OPY TRANSORAL DIAGNOSTIC Mykel Main MD [address] [place] [address] [facility] [address] [place] [address] Referral ID Status Reason Start Date Expiration Date Visits Requested Visits Authorized [id number] Authorized Auto-Generat ed Referral 03/24/2022 03/24/2023 1 1 * Outpatient Procedure (Routine) - Authorized Specialty Diagnoses / Procedures Referred By Ekaterina alonso Referred To Contact [facility] Diagnoses History of anal cancer Squamous cell carcinoma of perianal region Procedures COLONOSCOPY SCREENING COLONOSCOPY FLX DX W/COLLJ SPEC WHEN PFRMD Mykel Main MD [address] [place] [address] [facility] [address] [place] [address] Referral ID Status Reason Start Date Expiration Date Visits Requested Visits Authorized [id number] Authorized Auto-Generat ed Referral 03/24/2022 03/24/2023 [address] [facility] for referral (narrative)* Outpatient Procedure (Routine) - Closed Specialty Diagnoses / Procedures Referred By Ekaterina alonso Referred To Contact [facility] Diagnoses Dysphagia, unspecified type Esophageal polyp Procedures EGD DIAGNOSTIC ESOPHAGOGASTRODUODENOSC OPY TRANSORAL DIAGNOSTIC Mykel Main MD [address] [place] [address] [facility] [address] [place] [address] Referral ID Status Reason Start Date Expiration Date V isits Requested Visits Authorized [id number] Closed Auto-Generate d Referral 03/24/2022 03/24/2023 1 1 * Outpatient Procedure (Routine) - Closed Specialty Diagnoses / Procedures Referred By Ekaterina alonso Referred To Contact [facility] Diagnoses History of anal cancer Squamous cell carcinoma of perianal region Procedures COLONOSCOPY SCREENING COLONOSCOPY FLX DX W/COLLJ SPEC WHEN PFMykel Villa MD [address] [place] [address] [facility] [address] [place] [address] Referral ID Status Reason Start Date Expiration Date V isits Requested Visits Authorized [id number] Closed Auto-Generate d Referral 03/24/2022 03/24/2023 [address] [facility] for visit Narrative* Auth/Cert Specialty Diagnoses / Procedures Referred By Ekaterina alonso Referred To Contact [facility] Diagnoses Personal history of other malignant neoplasm of rectum, rectosigmoid junction, and anus Procedures ESOPHAGOGASTRODUODENOSCOPY TRANSORAL DIAGNOSTIC COLONOSCOPY FLX W/REMOVAL OF FOREIGN BODY(S) [facility] [address] [place] [address] Referral ID Status Reason Start Date Expiration Date Visits Re quested Visits Authorized [id number] 1 1 [facility] Advance Directives No Advanced Directives Records FoundDocuments on File Type Date Recorded Patient Rockboard Lather Expl anation Advance Directive(s) 10/10/2017 10:00 AM Advance Directive(s) 10/02/2017 12:34 PM Advance Directive(s) 10/05/2016 10:08 AM Advance Directive(s) 09/29/2016 11:36 AM Documents on File Type Date Recorded Patient Rockboard Lather Expl anation Advance Directive(s) 10/10/2017 10:00 AM Advance Directive(s) 10/02/2017 12:34 PM Advance Directive(s) 10/05/2016 10:08 AM Advance Directive(s) 09/29/2016 11:36 AM Medications Administered Section Inactive Administered Medications - up to 3 most recent administrations Medication Order MAR Action Action Date Dose Rate Site benzocaine 20% 1 [place] (TOPEX) 1 [place], TOPICAL, DIRECTED, Starting on Sujata 04/13/22 at [...] Given 04/13/2022 11:33 AM EDT 50 mcg Given 04/13/2022 11:17 AM EDT 50 mcg lactated ringers iv infusion 30 mL/hr, INTRAVENOUS, CONTINUOUS, Starting on Sujata 04/13/22 at 1100, Until Sujata 04/13/22 at 1151, Preprocedure New Bag/Syringe/Bottle 04/13/2022 11:05 AM EDT 30 mL/hr 30 mL/hr Forearm, Right midazolam (PF) 1-5 mg injection (VERSED) 1-5 mg, INTRAVENOUS, DIRECTED, Starting on Sujata 04/13/22 at 1130, Until Sujata 04/13/22 at 1529, DOSING DIRECTED BY PHYSICIAN FOR PROCEDURAL SEDATION ONLY, Intraprocedure Given 04/13/2022 11:27 AM EDT 2 mg Given 04/13/2022 11:17 AM EDT 3 mg Summary Purpose Family History No Family History Records Found Additional Source Comments Source Comments (unrecognize d section and content) In the event this informatio n is protected by the Federal Confidentiality of Alcohol and Drug Abuse Patient Records regulations: The Federal rules restrict any use of the information to criminally investigate or prosecute any alcohol or drug abuse patient.[facility] the event this information is protected by the Federal Confidentiality of Alcohol and Drug Abuse Patient Records regulations: The Federal rules restrict any use of the information to criminally investigate or prosecute any alcohol or drug abuse patient.[facility] the event this information is protected by the Federal Confidentiality of Alcohol and Drug Abuse Patient Records regulations: The Federal rules restrict any use of the information to criminally investigate or prosecute any alcohol or drug abuse patient.[facility] the event this information is protected by the Federal Confidentiality of Alcohol and Drug Abuse Patient Records regulations: The Federal rules restrict any use of the information to criminally investigate or prosecute any alcohol or drug abuse patient.[facility] Reason for Visit (unrecogniz ed section and content) Reason Comments Consult colonoscopy and EGD Specialty Diagnoses / Procedures Referred By Contac t Referred To Contact Diagnoses Squamous cell cancer, anus (HCC) Procedures CONSULT TO COLO-RECTAL SURGERY OFFICE/OUTPATIENT NEW HIGH MDM 60-74 MINUTES Mykel Main MD [address] [facility] [place] [address] French Richards MD [address] [place] [address] Referral ID Status Reason Start Date Expiration Date V isits Requested Visits Authorized [id number] Closed PCP Requested Referral 12/05/2021 12/05/2022 1 1 Reason Comments Procedure Reason Comments Results Care Teams (unrecognized sec tion and content) Corn Husker Relationship Specialty Start Date End Date Bernard Grider MD [address] [facility] [address] [place] [address] PCP - General Internal Medicine 02/07/22 Corn Husker Relationship Specialty Start Date End Date Bernard Grider MD [address] [address] PCP - General Internal Medicine 02/07/22 Corn Husker Relationship Specialty Start Date End Date Bernard Grider MD [address] [facility] [address] [place] [address] PCP - General Internal Medicine 02/07/22 Corn Husker Relationship Specialty Start Date End Date Bernard Grider MD [address] [facility] [address] [place] [address] PCP - General Internal Medicine 02/07/22 INFORMATION SOURCE (unrecogn ized section and content) DATE CREATED AUTHOR 04/20/2022 [facility] FOR RECORDS PERTAINING TO PATIENTS WHO ARE [...] BE BASED ON THE PRIMARY CLINICAL RECORDS. [place] [facility] [employer] [facility]. provides no warranty or guarantee of the accuracy or completeness of information in this document.
== END | disposition home or self-care (01) ==
LOC: RAD 15:29
PROVIDERS: PCP Internal Medicine; Referring Provider Anesthesiology Pain Medicine; Visit Provider Anesthesiology Pain Medicine
DX: M47.816 Spondylosis without myelopathy or radiculopathy, lumbar region (principal)
CPT/HCPCS: 72100

== ENCOUNTER → 2024-10-16 | Outpatient (CLI) | payer MEDICARE, MEDICAID, SELFPAY ==
[2020-09-27 10:09] VITALS: BMI 21.7
--- NOTE | 2024-10-16 15:42 | CT_ITS ---
INDICATION: F/U ANAL CANCER EXAMINATION: CT Chest Abdomen And Pelvis W/ Contrast Injection TECHNIQUE: Images were obtained of the chest, abdomen and pelvis following IV contrast. A radiation dose optimization technique was used for this scan. IV Contrast dosage and agent: IV 100mL [id number] COMPARISON: 03/25/2024. FINDINGS: Lungs: Increased size of a left upper lobe lung mass measuring approximately 5 x 2.4 x 3.2 cm. There is mediastinal and left hilar lymphadenopathy which appears as a conglomerate with the lung mass. Mediastinum: The cardiomediastinal silhouette is not enlarged. No mediastinal, hilar or axillary adenopathy. moderate aortic arch and coronary artery calcifications. No obvious filling defect seen within the visualized pulmonary arteries. Pleura: Unremarkable Liver: New innumerable hypoattenuating masses throughout the liver. Gallbladder: Not well visualized. Spleen: Unremarkable Pancreas: Unremarkable Adrenal Glands: Unremarkable Kidneys: Unremarkable Vasculature: Severe aortoiliac atherosclerotic disease. GI Tract: Ill-defined irregular masslike thickening of the lower rectum/anus is difficult to measure. Lymphadenopathy: None Peritoneum: No ascites. Bladder: Unremarkable Reproductive organs: Unremarkable Bones/Soft tissues: There are diffuse degenerative changes of the spine. CT/CT Chest, Abd, Pel w/Contrast IMPRESSION: Increased size of a 5 cm left upper lobe lung mass concerning for primary malignancy versus metastatic disease. New innumerable hepatic metastases which may be lung versus anal in origin. Ill-defined irregular masslike thickening of the lower rectum/anus is difficult to measure. No gross change. Electronically Signed: Eric Howard MD at 20:48 EST ,
[2024-10-16 16:13] LABS: CREATININE FINGERSTICK < 1.0 mg/dL (0.55-1.02); EGFR FINGERSTICK > 60.0000 mL/min (>60)
== END | disposition home or self-care (01) ==
LOC: CT 15:41
PROVIDERS: PCP Internal Medicine; Referring Provider Internal Medicine Hematology & Oncology; Visit Provider Internal Medicine Hematology & Oncology
DX: C21.0 Malignant neoplasm of anus, unspecified (principal)
CPT/HCPCS: 71260; 74177; Q9967